=== PATIENT | male | born 1950 | race Caucasian/White ===

== ENCOUNTER 2016-12-17 21:04 | Emergency (ER) | payer MEDICARE ==
[2016-12-17 21:15] VITALS: RESP 18
[2016-12-17] MEDS ORDERED: RX INFO: IV CONTRAST WAS GIVEN 1 EACH MISC MISCELLANE PRN (21:33)
[2016-12-17] MEDS ORDERED: ACETAMINOPHEN IV (For NPO) 1,000 MG in SALINE 100 100ML.BAG IVPB STA (21:36)
[2016-12-17 21:48] LABS: Basophils % (A) 0 %; CH 31.9; CHCM 34.2; Eosinophils # (A) 0.2 k/uL (0-0.7); Eosinophils % (A) 3 %; HCT 45.9 % (39.0-53.0); HDW 2.85; HGB 15.1 gm/dL (13.0-17.5); Luc % (Auto) 3; Lymphocytes # (A) 1.9 k/uL (1.0-4.8); Lymphocytes % (A) 25 %; MCH 30.9 pg (25.0-35.0); MCV 93.8 fL (80.0-100.0); Mean Platelet Volume 6.6; Monocytes # (A) 0.5 k/uL (0-1.0); Monocytes % (A) 6 %; Neutrophils # (A) 4.6 k/uL (1.3-7.7); Neutrophils % (A) 62 %; RDW 12.5 % (11.5-15.5); WBC 7.4 k/uL (3.8-10.6); WBC (Perox) 7.41
--- NOTE | 2016-12-17 21:55 | ED ---
General Adult HPI - General Chief complaint: Fall Stated complaint: Fall/Ribs hurting Time Seen by Provider: 12/17/16 21:05 Source: patient, RN notes reviewed Mode of arrival: ambulatory Limitations: no limitations - History of Present Illness Initial comments: This is a 66-year-old male who presents to the emergency department stating he fell 4 days ago up against a dresser. Patient states he has Parkinson disease and these often off balance occasionally will fall. Patient states he struck the left lateral aspect of his ribs and his tenderness in that area as well as just under the ribs. Patient denies any nausea or vomiting. Patient denies any difficulty breathing shortness of breath. Patient states the pain seemed of gotten worse today and that is the reason he came to the emergency department. Patient denies any head injury or neck injury. Patient denies any numbness weakness. - Related Data Previous Rx's Medication Instructions Recorded Hydrocodone/Acetaminophen [[place] 1 each PO Q4HR PRN #20 tab 12/17/16 5-325] Ibuprofen [Motrin] 600 mg PO Q6HR PRN #20 tab 12/17/16 Allergies Allergy/AdvReac Type Severity Reaction Status Date / Time Penicillins AdvReac Diarrhea Verified 12/17/16 22:22 (C-Diff) Review of Systems ROS Statement: Those systems with pertinent positive or pertinent negative responses have been documented in the HPI. ROS Other: All systems not noted in ROS Statement are negative. Past Medical History Additional Past Medical History / Comment(s): parkinson's History of Any Multi-Drug Resistant Organisms: C-DIFF Date of last positivie culture/infection: 12/10/2016 MDRO Source:: "marginal" c-diff, pt states this is "all gone" Past Surgical History: Orthopedic Surgery Additional Past Surgical History / Comment(s): right knee sx, back sx Past Psychological History: No Psychological Hx Reported Smoking Status: Former smoker Past Alcohol Use History: Occasional Past Drug Use History: None Reported General Exam - General Exam Comments Initial Comments: GENERAL: Patient is well-developed and well-nourished. Patient is nontoxic and well- hydrated and is in mild distress. ENT: Neck is soft and supple. No significant lymphadenopathy is noted. Oropharynx is clear. Moist mucous membranes. Neck has full range of motion without eliciting any pain. EYES: The sclera were anicteric and conjunctiva were pink and moist. Extraocular movements were intact and pupils were equal round and reactive to light. Eyelids were unremarkable. PULMONARY: Unlabored respirations. Good breath sounds bilaterally. No audible rales rhonchi or wheezing was noted. CARDIOVASCULAR: There is a regular rate and rhythm without any murmurs gallops or rubs. There is ecchymosis just below the left lateral ribs the area above that on the 12th 11th and 10th rib are is tender there is also tenderness in the left upper quadrant. ABDOMEN: There is tenderness in the left upper quadrant No palpable organomegaly was noted. There is no palpable pulsatile mass. SKIN: Skin is clear with no lesions or rashes and otherwise unremarkable. NEUROLOGIC: Patient is alert and oriented x3. Cranial nerves II through XII are grossly intact. Motor and sensory are also intact. Normal speech, volume and content. Symmetrical smile. . MUSCULOSKELETAL: Normal extremities with adequate strength and full range of motion. No lower extremity swelling or edema. No calf tenderness. LYMPHATICS: No significant lymphadenopathy is noted PSYCHIATRIC: Normal psychiatric evaluation. Limitations: no limitations Course Vital Signs 12/17/16 21:08 Temperature 97.0 F L Pulse Rate 74 Respiratory 18 Rate Blood Pressure 160/81 O2 Sat by Pulse 98 Oximetry Medical Decision Making - Medical Decision Making CT of the chest abdomen pelvis showed a 12th rib fracture on the left. - Lab Data Result diagrams: 12/17/16 21:39 12/17/16 21:39 Lab Results 12/17/16 12/17/16 Range/Units 21:39 21:39 WBC 7.4 (3.8-10.6) k/uL RBC 4.90 (4.30-5.90) m/uL Hgb 15.1 (13.0-17.5) gm/dL Hct 45.9 (39.0-53.0) % MCV 93.8 (80.0-100.0) fL MCH 30.9 (25.0-35.0) pg MCHC 33.0 (31.0-37.0) g/dL RDW 12.5 (11.5-15.5) % Plt Count 296 (150-450) k/uL Neutrophils % 62 % Lymphocytes % 25 % Monocytes % 6 % Eosinophils % 3 % Basophils % 0 % Neutrophils # 4.6 (1.3-7.7) k/uL Lymphocytes # 1.9 (1.0-4.8) k/uL Monocytes # 0.5 (0-1.0) k/uL Eosinophils # 0.2 (0-0.7) k/uL Basophils # 0.0 (0-0.2) k/uL Sodium 143 (137-145) mmol/L Potassium 4.8 (3.5-5.1) mmol/L Chloride 104 (98-107) mmol/L Carbon Dioxide 29 (22-30) mmol/L Anion Gap 10 mmol/L BUN 18 (9-20) mg/dL Creatinine 1.10 (0.66-1.25) mg/dL Est GFR (MDRD) Af Amer >60 (>60 ml/min/1.73 sqM) Est GFR (MDRD) Non-Af >60 (>60 ml/min/1.73 sqM) Glucose 93 (74-99) mg/dL Calcium 9.0 (8.4-10.2) mg/dL Total Bilirubin 0.8 (0.2-1.3) mg/dL AST 21 (17-59) U/L ALT 23 (21-72) U/L Alkaline Phosphatase 81 (38-126) U/L Total Protein 6.9 (6.3-8.2) g/dL Albumin 4.0 (3.5-5.0) g/dL Disposition Clinical Impression: Rib fracture Disposition: HOME SELF-CARE Condition: Good Instructions: Rib Fracture (ED) Prescriptions: Hydrocodone/Acetaminophen [[place] 5-325] 1 each PO Q4HR PRN #20 tab PRN Reason: Pain Ibuprofen [Motrin] 600 mg PO Q6HR PRN #20 tab PRN Reason: For pain Referrals: Dandy Manley MD [Primary Care Provider] - 1-2 days Time of Disposition: 23:34
[2016-12-17 21:56] LABS: ALT 23 U/L (21-72); AST 21 U/L (17-59); Alkaline Phosphatase 81 U/L (38-126); Anion Gap 10 mmol/L; Blood Urea Nitrogen 18 mg/dL (9-20); Carbon Dioxide 29 mmol/L (22-30); Chloride 104 mmol/L (98-107); Glucose 93 mg/dL (74-99); Non-African American GFR(MDRD) >60 (>60 ml/min/1.73 sqM); Potassium 4.8 mmol/L (3.5-5.1); Sodium 143 mmol/L (137-145); Total Bilirubin 0.8 mg/dL (0.2-1.3); Total Protein 6.9 g/dL (6.3-8.2)
--- NOTE | 2016-12-17 23:29 | CT ---
EXAMINATION TYPE: CT ChestAbdPelvis w con DATE OF EXAM: 12/17/2016 10:46 PM COMPARISON: NONE HISTORY: Pt states of left side rib and abdominal pain after fall injury x3 days ago. CT DLP: 1067.3 mGycm Automated exposure control for dose reduction was used. CONTRAST: CT scan of the chest, abdomen and pelvis is performed without Oral Contrast and with IV Contrast, pat ient injected with 100 mL of Omnipaque 300. FINDINGS: LUNGS: Mild atelectasis and scarring is suggested in both lung bases posteriorly. Mild emphysematous changes are suggested bilaterally. Faint interstitial opacities are noted in the right midlung field and are probably related to chronic changes. No significant lung nodules are noted. There is evidence of acute left 12th rib fracture in the posterior lateral aspect. No pneumothorax or pleural effusion is noted. MEDIASTINUM: There are no greater than 1 cm hilar or mediastinal lymph nodes. No pericardial effusi on is seen. OTHER: No additional significant abnormality is seen. LIVER/GB: No significant abnormality is appreciated. PANCREAS: No significant abnormality is seen. SPLEEN: Spleen appears intact at present with adjacent left 12th rib fracture. ADRENALS: No significant abnormality is seen. KIDNEYS: There is 3.2 x 4.5 cm benign-appearing cyst in the upper pole area of right kidney. No signi ficant hydronephrosis or obstructing stones are noted in both kidneys. BOWEL: Moderate to large amount of fecal material is noted in the colon and patient is constipated. There is mild colonic diverticulosis. Appendix is gas-filled and appears grossly unremarkable in the axial image 91. REPRODUCTIVE ORGANS: No gross abnormality seen. LYMPH NODES: No greater than 1 cm abdominal or pelvic lymph nodes are appreciated. OSSEOUS STRUCTURES: Multilevel degenerative changes are present in the thoracolumbar spine with mild old wedge compression deformities of mid and lower thoracic vertebrae. Multilevel degenerative disc d isease changes and vacuum disc phenomenon are noted in the lower thoracic and lumbar spine. There is evidence of acute slightly displaced left 12th rib fracture in the posterolateral aspect in the axial image 70 and coronal image 71. Possibility of nondisplaced left 11th rib fracture cannot be excluded. Surrounding mild soft tissue swelling is suggested at the fracture site of the left 12th r ib. There is slight irregularity in the anterior portions of acetabulum in the axial image 114 bilaterall y and is probably related to old fracture changes. Somewhat sclerotic foci are noted in the right lex ac bone and are most likely benign bone islands. OTHER: Mild atherosclerotic calcification is noted in the abdominal aorta and iliac arteries. IMPRESSION: 1. Left 12th rib acute slightly displaced fracture in the posterior lateral aspect with surrounding s oft tissue swelling. 2. No pneumothorax or pleural effusion. Mild atelectasis is noted in both lung bases. 3. Right renal cyst. 4. Patient is constipated. Mild colonic diverticulosis. 5. No definite solid organ injury is noted. Spleen appears intact. A phone report is given to Dr. Wright at the time of the dictation.
[2016-12-17] MEDS ORDERED: ACET/COD 300 MG/30 MG STARTER PACK 6 TAB BTL PO STA (23:35)
[2016-12-17] MEDS ORDERED: KETOROLAC 60 MG/2 ML VIAL IVP STA (23:36)
[2016-12-17] MEDS ORDERED: IBUPROFEN 600 MG STARTER PACK 4 TAB BTL PO STA (23:36)
[2016-12-17 23:43] VITALS: BP 133/73; PULSE 67; TEMP 97.9
== END 2016-12-17 23:52 | disposition home or self-care (01) ==
LOC: EC 21:04
DX: S22.32XA Fracture of one rib, left side, initial encounter for closed fracture (principal); G20 Parkinson's disease; Z88.0 Allergy status to penicillin; Z87.891 Personal history of nicotine dependence; Z91.81 History of falling; W18.09XA Striking against other object with subsequent fall, initial encounter; Y92.009 Unspecified place in unspecified non-institutional (private) residence as the place of occurrence of the external cause
CPT/HCPCS: 36415; 80053; 85025; 71260; 74177; 96365; 96366; 96375; 99283; J1885; Q9967; J0131

== ENCOUNTER 2016-12-31 18:29 | Emergency (ER) | payer MEDICARE ==
[2016-12-31 18:38] VITALS: TEMP 97.1
[2016-12-31 18:51] LABS: Glucose,Whole Blood 90 mg/dL (75-99)
[2016-12-31 19:13] LABS: Partial Thromboplastin Time 23.2 sec (22.0-30.0); Prothrombin Time 10.4 sec (9.0-12.0)
--- NOTE | 2016-12-31 19:14 | CT ---
EXAMINATION TYPE: CT brain wo con DATE OF EXAM: 12/31/2016 7:03 PM COMPARISON: NONE HISTORY: Possible cva. Headache and memory changes. Altered mental status History of Parkinson's CT DLP: 1116.10 mGycm Automated exposure control for dose reduction was used. FINDINGS: There is no acute intracranial hemorrhage, mass effect, or midline shift identified. The ventricles and sulci are within normal limits in size. There is mild cortical atrophy. Periventricular white mat ter demyelination is suspected. The globes are intact and the visualized sinuses are clear. IMPRESSION: No acute intracranial hemorrhage, mass effect, or midline shift is seen.
[2016-12-31 19:16] LABS: ALT 19 U/L (21-72); AST 24 U/L (17-59); Alkaline Phosphatase 82 U/L (38-126); Anion Gap 7 mmol/L; Blood Urea Nitrogen 16 mg/dL (9-20); Calcium 8.8 mg/dL (8.4-10.2); Carbon Dioxide 29 mmol/L (22-30); Chloride 105 mmol/L (98-107); Glucose 87 mg/dL (74-99); Non-African American GFR(MDRD) >60 (>60 ml/min/1.73 sqM); Potassium 4.2 mmol/L (3.5-5.1); Sodium 141 mmol/L (137-145); Total Bilirubin 0.9 mg/dL (0.2-1.3); Total Protein 6.6 g/dL (6.3-8.2)
[2016-12-31 19:20] LABS: Basophils % (A) 1 %; CH 31.8; CHCM 33.9; Eosinophils # (A) 0.3 k/uL (0-0.7); Eosinophils % (A) 5 %; HDW 2.81; HGB 14.1 gm/dL (13.0-17.5); Luc % (Auto) 3; Lymphocytes % (A) 32 %; MCH 30.8 pg (25.0-35.0); MCHC 32.7 g/dL (31.0-37.0); MCV 94.1 fL (80.0-100.0); Mean Platelet Volume 7.7; Monocytes # (A) 0.4 k/uL (0-1.0); Monocytes % (A) 6 %; Neutrophils # (A) 3.3 k/uL (1.3-7.7); Neutrophils % (A) 53 %; RBC 4.57 m/uL (4.30-5.90); RDW 12.8 % (11.5-15.5); WBC 6.2 k/uL (3.8-10.6); WBC (Perox) 6.17
--- NOTE | 2016-12-31 19:24 | XR ---
EXAMINATION TYPE: XR chest 1V portable DATE OF EXAM: 12/31/2016 7:05 PM COMPARISON: NONE HISTORY: Altered mental status TECHNIQUE: Single frontal view of the chest is obtained. FINDINGS: There is no focal air space opacity, pleural effusion, or pneumothorax seen. The cardiac silhouette size is within normal limits. There are overlying cardiac leads. The osseous structures are intact. IMPRESSION: No acute process.
[2016-12-31 19:37] VITALS: RESP 18
[2016-12-31 19:55] LABS: Appearance,Urine Clear (Clear); Bilirubin,Urine Negative (Negative); Glucose,Urine (UA) Negative (Negative); Ketones,Urine Negative (Negative); Leukocyte Esterase,Urine Negative (Negative); Nitrite,Urine Negative (Negative); PH, Urine 6.5 (5.0-8.0); Protein,Urine Negative (Negative); Specific Gravity,Urine 1.013 (1.001-1.035); UA Billing (MACRO vs. MICRO) CHEM; Urobilinogen,Urine <2.0 mg/dL (<2.0)
--- NOTE | 2016-12-31 20:06 | ED ---
Neuro HPI - General Chief Complaint: Neuro Symptoms/Deficit Stated Complaint: CVA Time Seen by Provider: 12/31/16 18:42 Source: patient Mode of arrival: EMS Limitations: no limitations - History of Present Illness Is the patient presenting with stroke symptoms?: Yes Last Known Well Date: 12/31/16 -: hour(s) Initial Comments: 's patient is a 66-year-old man brought to be evaluated for altered mental status. The patient had been at home tonight, and his called to ask him to give her phone number. He seemed to not be responding correctly and was unable to locate a number and give it to her which he otherwise would've been able to do. He was subsequently brought here concern of possible stroke. The exact onset time is not able to be established. Location: speech, altered History of same: Yes Place: home Improves With: none Worsens With: none Context: sudden onset Associated Symptoms: confusion Treatments Prior to Arrival: none - Related Data Home Medications: Home Medications Medication Instructions Recorded Confirmed Amantadine HCl [Symmetrel] 100 mg PO TID 12/31/16 12/31/16 Carbidopa/Levodopa/Entacapone 1 tab PO 5XD 12/31/16 12/31/16 [Stalevo 200] Allergies/Adverse Reactions: Allergies Allergy/AdvReac Type Severity Reaction Status Date / Time Penicillins AdvReac Diarrhea Verified 12/31/16 20:04 (C-Diff) Review of Systems ROS Statement: Those systems with pertinent positive or pertinent negative responses have been documented in the HPI. ROS Other: All systems not noted in ROS Statement are negative. Constitutional: Denies: fever, chills Eyes: Denies: vision change ENT: Denies: hearing loss Respiratory: Denies: cough, dyspnea Cardiovascular: Denies: chest pain, palpitations, edema, syncope Gastrointestinal: Denies: abdominal pain, vomiting, diarrhea Genitourinary: Denies: dysuria, hematuria Musculoskeletal: Denies: back pain Skin: Denies: rash Neurological: Reports: as per HPI, confusion. Denies: headache, weakness, numbness, paresthesias General Exam Limitations: no limitations General appearance: alert, in no apparent distress Head exam: Present: atraumatic, normocephalic, normal inspection Eye exam: Present: normal appearance, PERRL, EOMI. Absent: scleral icterus, conjunctival injection ENT exam: Present: normal oropharynx Neck exam: Present: normal inspection, full ROM Respiratory exam: Present: normal lung sounds bilaterally. Absent: respiratory distress, wheezes, rales, rhonchi, stridor Cardiovascular Exam: Present: regular rate, normal heart sounds. Absent: systolic murmur, diastolic murmur GI/Abdominal exam: Present: soft. Absent: distended, tenderness, guarding, rebound, rigid Extremities exam: Present: normal inspection, normal capillary refill. Absent: pedal edema, calf tenderness Back exam: Present: normal inspection. Absent: CVA tenderness (R), CVA tenderness (L) Neurological exam: Present: alert, oriented X3. Absent: CN II-XII intact, motor sensory deficit Skin exam: Present: warm, dry, intact, normal color. Absent: rash Stroke MDM - Lab Data Result diagrams: 12/31/16 18:44 12/31/16 18:44 Lab Results 12/31/16 12/31/16 12/31/16 Range/Units 18:36 18:44 18:44 WBC 6.2 (3.8-10.6) k/uL RBC 4.57 (4.30-5.90) m/uL Hgb 14.1 (13.0-17.5) gm/dL Hct 43.0 (39.0-53.0) % MCV 94.1 (80.0-100.0) fL MCH 30.8 (25.0-35.0) pg MCHC 32.7 (31.0-37.0) g/dL RDW 12.8 (11.5-15.5) % Plt Count 182 (150-450) k/uL Neutrophils % 53 % Lymphocytes % 32 % Monocytes % 6 % Eosinophils % 5 % Basophils % 1 % Neutrophils # 3.3 (1.3-7.7) k/uL Lymphocytes # 2.0 (1.0-4.8) k/uL Monocytes # 0.4 (0-1.0) k/uL Eosinophils # 0.3 (0-0.7) k/uL Basophils # 0.0 (0-0.2) k/uL PT (9.0-12.0) sec INR (<1.1) APTT (22.0-30.0) sec Sodium 141 (137-145) mmol/L Potassium 4.2 (3.5-5.1) mmol/L Chloride 105 (98-107) mmol/L Carbon Dioxide 29 (22-30) mmol/L Anion Gap 7 mmol/L BUN 16 (9-20) mg/dL Creatinine 0.80 (0.66-1.25) mg/dL Est GFR (MDRD) Af Amer >60 (>60 ml/min/1.73 sqM) Est GFR (MDRD) Non-Af >60 (>60 ml/min/1.73 sqM) Glucose 87 (74-99) mg/dL POC Glucose (mg/dL) 90 (75-99) mg/dL POC Glu Cloth Doffer ID Aura Grace Calcium 8.8 (8.4-10.2) mg/dL Total Bilirubin 0.9 (0.2-1.3) mg/dL AST 24 (17-59) U/L ALT 19 L (21-72) U/L Alkaline Phosphatase 82 (38-126) U/L Troponin I (0.000-0.034) ng/mL Total Protein 6.6 (6.3-8.2) g/dL Albumin 3.8 (3.5-5.0) g/dL Urine Color Urine Appearance (Clear) Urine pH (5.0-8.0) Ur Specific [place] (1.001-1.035) Urine Protein (Negative) Urine Glucose (UA) (Negative) Urine Ketones (Negative) Urine Blood (Negative) Urine Nitrate (Negative) Urine Bilirubin (Negative) Urine Urobilinogen (<2.0) mg/dL Ur Leukocyte Esterase (Negative) 12/31/16 12/31/16 12/31/16 Range/Units 18:44 18:44 19:44 WBC (3.8-10.6) k/uL RBC (4.30-5.90) m/uL Hgb (13.0-17.5) gm/dL Hct (39.0-53.0) % MCV (80.0-100.0) fL MCH (25.0-35.0) pg MCHC (31.0-37.0) g/dL RDW (11.5-15.5) % Plt Count (150-450) k/uL Neutrophils % % Lymphocytes % % Monocytes % % Eosinophils % % Basophils % % Neutrophils # (1.3-7.7) k/uL Lymphocytes # (1.0-4.8) k/uL Monocytes # (0-1.0) k/uL Eosinophils # (0-0.7) k/uL Basophils # (0-0.2) k/uL PT 10.4 (9.0-12.0) sec INR 1.0 (<1.1) APTT 23.2 (22.0-30.0) sec Sodium (137-145) mmol/L Potassium (3.5-5.1) mmol/L Chloride (98-107) mmol/L Carbon Dioxide (22-30) mmol/L Anion Gap mmol/L BUN (9-20) mg/dL Creatinine (0.66-1.25) mg/dL Est GFR (MDRD) Af Amer (>60 ml/min/1.73 sqM) Est GFR (MDRD) Non-Af (>60 ml/min/1.73 sqM) Glucose (74-99) mg/dL POC Glucose (mg/dL) (75-99) mg/dL POC Glu Cloth Doffer ID Calcium (8.4-10.2) mg/dL Total Bilirubin (0.2-1.3) mg/dL AST (17-59) U/L ALT (21-72) U/L Alkaline Phosphatase (38-126) U/L Troponin I <0.012 (0.000-0.034) ng/mL Total Protein (6.3-8.2) g/dL Albumin (3.5-5.0) g/dL Urine Color Dark Yellow Urine Appearance Clear (Clear) Urine pH 6.5 (5.0-8.0) Ur Specific [place] 1.013 (1.001-1.035) Urine Protein Negative (Negative) Urine Glucose (UA) Negative (Negative) Urine Ketones Negative (Negative) Urine Blood Negative (Negative) Urine Nitrate Negative (Negative) Urine Bilirubin Negative (Negative) Urine Urobilinogen <2.0 (<2.0) mg/dL Ur Leukocyte Esterase Negative (Negative) - Medical Decision Making Patient is 66-year-old man presenting with change in mental status, mainly expressive aphasia, which has resolved. Per the patient's family he does seem back to his usual self. The ABCD 2 score indicates that the patient may be suitable for outpatient workup and that is his expressed desire. I did offer admission with neurology consultation, but at this point he is declining. They will return should there be any recurrence of symptoms or any new symptoms. He is otherwise going to follow up to have further workup within the coming few days. Past Medical History Additional Past Medical History / Comment(s): parkinson's History of Any Multi-Drug Resistant Organisms: C-DIFF Date of last positivie culture/infection: 12/10/2016 MDRO Source:: "marginal" c-diff, pt states this is "all gone" Past Surgical History: Orthopedic Surgery Additional Past Surgical History / Comment(s): right knee sx, back sx Past Psychological History: No Psychological Hx Reported Smoking Status: Former smoker Past Alcohol Use History: Occasional Past Drug Use History: None Reported Course Vital Signs 12/31/16 12/31/16 12/31/16 18:32 19:05 19:15 Temperature 97.1 F L Pulse Rate 62 58 L 61 Respiratory 16 16 18 Rate Blood Pressure 148/96 133/74 131/72 O2 Sat by Pulse 97 98 98 Oximetry 12/31/16 12/31/16 19:30 20:00 Temperature Pulse Rate 58 L 70 Respiratory 18 18 Rate Blood Pressure 131/77 145/82 O2 Sat by Pulse 99 97 Oximetry Disposition Clinical Impression: Transient cerebral ischemia, Mental status change, Cerebrovascular accident Disposition: HOME SELF-CARE Condition: Good Instructions: Transient Ischemic Attack (ED) Referrals: Dandy Manley MD [Primary Care Provider] - 1-2 days Juan Webster MD [STAFF PHYSICIAN] - 1-2 days
[2016-12-31 20:34] VITALS: BP 145/82; PULSE 70
== END 2016-12-31 20:25 | disposition home or self-care (01) ==
LOC: EC 18:29
DX: I63.9 Cerebral infarction, unspecified (principal); R41.82 Altered mental status, unspecified; Z87.891 Personal history of nicotine dependence; Z88.0 Allergy status to penicillin
CPT/HCPCS: 36415; 70450; 71010; 80053; 81003; 84484; 85025; 85610; 85730; 93005; 99285

== ENCOUNTER 2018-04-30 11:23 | Emergency (ER) | payer MEDICARE ==
--- NOTE | 2018-04-30 12:09 | ED ---
General Adult HPI - General Chief complaint: Back Pain/Injury Stated complaint: back pain Time Seen by Provider: 04/30/18 11:50 Source: patient, RN notes reviewed Mode of arrival: ambulatory Limitations: no limitations - History of Present Illness Initial comments: Chief complaint and history of present illness this is a 67-year-old male who reports that approximately 2:58 AM this morning he rolled over in bed and developed acute severe discomfort to his right paralumbar region and radiates to the right upper buttock. The patient does have Parkinson's. He denies having any difficulty urinating or bowel movements since then. His gave him a pain pill source helped relieve some of the pain. - Related Data Home Medications Medication Instructions Recorded Confirmed Amantadine HCl [Symmetrel] 100 mg PO TID 12/31/16 04/30/18 Carbidopa/Levodopa/Entacapone 1 tab PO 5XD 12/31/16 04/30/18 [Stalevo 200] Meloxicam [Mobic] 15 mg PO DAILY PRN 04/30/18 04/30/18 Previous Rx's Medication Instructions Recorded Acetaminophen with Codeine 1 tab PO Q4H PRN 3 Days #18 tab 04/30/18 [Tylenol w/codeine #3] methylPREDNISolone Dose Pack 4 mg PO DIRECTED #21 package 04/30/18 [Medrol Dose Pack] Allergies Allergy/AdvReac Type Severity Reaction Status Date / Time Penicillins AdvReac Diarrhea Verified 04/30/18 11:42 (C-Diff) Review of Systems ROS Statement: Those systems with pertinent positive or pertinent negative responses have been documented in the HPI. Review of systems. Patient denies any headache no visual acuity changes no cervical or thoracic pain. Has discomfort to the lumbar region as noted above. No numbness no tingling distally. No difficulty urinating or bowel movements. No complaints of any nausea vomiting or diarrhea. No new deficits. Patient has Parkinson's for the past 15 years. All systems are reviewed. Past medical problem Parkinson's 15 years. Denies any other medical problems. Surgeries include right knee surgery many years ago as well as back surgery probably laminectomy and no problems since this morning at 2 AM. Family history no cancers. Patient denies any ALLERGIES. He quit smoking over 30 years ago drinks alcohol occasionally socially. ROS Other: All systems not noted in ROS Statement are negative. Past Medical History Additional Past Medical History / Comment(s): parkinson's History of Any Multi-Drug Resistant Organisms: C-DIFF Date of last positivie culture/infection: 12/10/2016 MDRO Source:: "marginal" c-diff, pt states this is "all gone" Past Surgical History: Orthopedic Surgery Additional Past Surgical History / Comment(s): right knee sx, back sx Past Psychological History: No Psychological Hx Reported Smoking Status: Former smoker Past Alcohol Use History: Occasional Past Drug Use History: None Reported General Exam - General Exam Comments Initial Comments: General: The patient is awake and alert, here because of pain to the right paralumbar region after rolling over at 2 AM. Pain persists. Vital signs temperature 97.5 pulse 87 respiratory rate 20 pulse ox 99% room air blood pressure 126/67 Eye: Pupils are equal, round and reactive to light, extra-ocular movements are intact ; there is normal conjunctiva bilaterally. No signs of icterus. Ears, nose, mouth and throat: There are moist mucous membranes and no oral lesions. Neck: The neck is supple, Cardiovascular: There is a regular rate and rhythm. No murmur, rub or gallop is appreciated. Respiratory: Lungs are clear to auscultation, respirations are non-labored, breath sounds are equal. No wheezes, stridor, rales, or rhonchi. Gastrointestinal: Soft, non-distended, non-tender abdomen without masses or organomegaly noted. There is no rebound or guarding present. No CVA tenderness. Bowel sounds are unremarkable. Back: Evidence of previous surgery in the lumbar region. Probably laminectomy from his description of the procedure. Also pain in the right paralumbar region radiating to the upper right buttock area. No rash noted. Early shingles discussed. No pain to palpation over the area. Pain does increase with a twisting or turning or bending forward. Denies any difficulty urinating or bowel movements. Musculoskeletal: Upper or lower extremities otherwise normal. Neurological: The patient has Parkinson's, with tremor. For over 15 years. He states no new deficits other than the acute pain suffered while rolling over in bed's morning at 2 AM. No foot drop. Skin: No rashes Psychiatric: Cooperative, Limitations: no limitations Course Vital Signs 04/30/18 04/30/18 11:30 12:16 Temperature 97.5 F L Pulse Rate 87 62 Respiratory 20 17 Rate Blood Pressure 126/67 136/70 O2 Sat by Pulse 99 100 Oximetry Medical Decision Making - Medical Decision Making Medical decision making; this is a 67-year-old male with Parkinson's. He reports that around 2 AM this morning while rolling over in bed he did develop an acute discomfort which is persisted until he received a pain pill from his . Still uncomfortable in the lumbar spine right sided which radiates to the right buttock area. The radiologist reviewed the CAT scan the lumbar spine and her impression is extensive multilevel lumbar degenerative disc disease and S-shaped scoliosis of the lumbar spine that contribute 2 multilevel spinal canal stenosis and variable degree neural foraminal narrowing as described in the body of the report. No evidence of vertebral body height loss. Grade 1 anterolisthesis of L5 on S1 is likely degenerative in nature. I discussed with the patient the findings per CAT scan. The plan the patient be placed on Medrol Dosepak advised to take Tylenol 3 which worked at home for pain also advised follow-up with family physician. He'll be given the name of the on-call back surgeon, Dr. Andrews. Disposition Clinical Impression: Degenerative disc disease, lumbar Disposition: HOME SELF-CARE Condition: Fair Instructions: Acute Low Back Pain (ED), Degenerative Disc Disease (ED), Lumbar Spinal Stenosis (ED) Additional Instructions: Take medications as directed, follow-up with family physician. Also follow-up with on-call back surgeon Dr. Andrews Prescriptions: Acetaminophen with Codeine [Tylenol w/codeine #3] 1 tab PO Q4H PRN 3 Days #18 tab PRN Reason: Pain methylPREDNISolone Dose Pack [Medrol Dose Pack] 4 mg PO DIRECTED #21 package Is patient prescribed a controlled substance at d/c from ED?: Yes When asked, does pt state using other controlled substances?: No If prescribed controlled substance>3 days was MAPS reviewed?: No If opioid is for acute pain is fill amount 7 days or less?: Yes If Rx opioid, was Start Talking consent form obtained?: Yes Referrals: None,Stated [Primary Care Provider] - 1-2 days Therese Andrews DO [Doctor of Osteopathic Medicine] - 1-2 days Time of Disposition: 13:27
--- NOTE | 2018-04-30 13:08 | CT ---
EXAMINATION TYPE: CT lumbar spine wo con DATE OF EXAM: 04/30/2018 12:57 PM COMPARISON: NONE HISTORY: Low back pain CT DLP: 440 mGycm Automated exposure control for dose reduction was used. TECHNIQUE: Unenhanced CT of the lumbar spine was performed. Bone and soft tissue window settings are submitted as well as coronal and sagittal reconstructions. Osseous findings: There is severe degenerative changes of the lumbar spine. No evidence of vertebral body height loss. There is very mild grade 1 anterolisthesis of L5 on S1, likely on a degenerative ba sis intervertebral disc desiccation, multilevel vacuum disc disease, anterior osteophytes, facet arth ropathy, endplate sclerosis and intervertebral disc space narrowing are noted. Minimal bibasilar subs egmental atelectasis is seen at the lung bases. Exophytic right upper pole renal cyst is seen measuri ng 4.6 cm. Vqhi-ij-buzpiacm atherosclerosis of the abdominal aorta and its branches are incidentally seen. There is a S-shaped scoliotic curvature of the lumbar spine. L1-L2: There is disc desiccation and a broad-based disc bulge with mild bilateral neural foraminal na rrowing. No significant spinal canal stenosis. L2-L3: There is facet arthropathy and disc desiccation with a broad-based disc bulge and osteophytes creating moderate left and mild right neural foraminal narrowing. No spinal canal stenosis. L3-L4: Extensive facet arthropathy, curvature from the scoliosis, and degenerative disc disease creat e moderate to severe left and mild right neural foraminal narrowing in addition to moderate spinal ca nal stenosis. L4-L5: Extensive facet arthropathy and degenerative disc disease create severe right and mild left ne ural foraminal narrowing. L5-S1: There is disc uncovering and a broad-based disc bulge resulting in mild left and xuco-ia-uqjon ate right neural foraminal narrowing. No spinal canal stenosis. IMPRESSION: 1. Extensive multilevel lumbar degenerative disc disease and S-shaped scoliosis of the lumbar spine t hat contribute to multilevel spinal canal stenosis and variable degree neural foraminal narrowing as described above. 2. No evidence of vertebral body height loss. Grade 1 anterolisthesis of L5 on S1 is likely degenerat shweta in nature.
[2018-04-30 13:31] VITALS: RESP 18; TEMP 98.4
[2018-04-30 13:38] VITALS: BP 130/62; PULSE 57
== END 2018-04-30 13:38 | disposition home or self-care (01) ==
LOC: EC 11:23
DX: M51.36 Other intervertebral disc degeneration, lumbar region (principal); M48.061 Spinal stenosis, lumbar region without neurogenic claudication; M43.17 Spondylolisthesis, lumbosacral region; M99.73 Connective tissue and disc stenosis of intervertebral foramina of lumbar region; M41.86 Other forms of scoliosis, lumbar region; G20 Parkinson's disease; Z87.891 Personal history of nicotine dependence; Z79.899 Other long term (current) drug therapy; Z88.0 Allergy status to penicillin; Z98.890 Other specified postprocedural states; X50.1XXA Overexertion from prolonged static or awkward postures, initial encounter
CPT/HCPCS: 72131; 99283

== ENCOUNTER → 2019-01-11 | Outpatient (CLI) | payer MEDICARE ==
--- NOTE | 2019-01-11 15:22 | MR ---
EXAMINATION TYPE: MR brain wo/w con DATE OF EXAM: 01/11/2019 COMPARISON: CT 12/31/2016 HISTORY: 68-year-old male Visual disturbances TECHNIQUE: Multiplanar, multisequence images of the brain and brainstem were acquired before and aft er administration of 11 mL IV Gadavist. Diffusion weighted imaging is performed. Fast brain protoco l was utilized. FINDINGS: No evidence for acute infarction, hemorrhage, mass, mass effect, midline shift, herniation, effacemen t of basal cisterns, or extra-axial fluid collection. The ventricles and sulci are age-appropriate. Major intracranial flow voids are intact. The left vertebral artery is dominant. T2/FLAIR weighted sequences show mild to moderate scattered burden of bright white matter change in t he subcortical, deep, and periventricular regions of both cerebral hemispheres. Midline structures demonstrate normal morphology. The craniocervical junction is normal. Post contrast images demonstrate no evidence of pathologic enhancement. Dural venous sinuses are pat ent. The visualized sinuses are clear and the globes are intact. Rightward nasal septal deviation. Small a mount of fluid within the inferior right mastoid air cells. IMPRESSION: 1. No acute intracranial abnormality seen. 2. Lgmm-qn-kbdfixum scattered burden of T2 bright white matter change, nonspecific, likely representi ng changes of chronic small vessel ischemic disease. 3. Incidental small amount of trapped fluid in the inferior right mastoid air cells. Correlate for an y mastoid pain to exclude mastoiditis.
== END | disposition home or self-care (01) ==
LOC: RADMRIMAIN 08:13
PROVIDERS: ATTEND Psychiatry & Neurology Neurology
DX: R90.89 Other abnormal findings on diagnostic imaging of central nervous system (principal); H53.2 Diplopia; F82 Specific developmental disorder of motor function
CPT/HCPCS: 82565; 70553; 36415; A9585

== ENCOUNTER 2019-08-05 14:13 | Emergency (ER) | payer MEDICARE ==
[2019-08-05 14:16] VITALS: RESP 18
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
--- NOTE | 2019-08-05 15:59 | XR ---
EXAMINATION TYPE: XR hand complete LT DATE OF EXAM: 08/05/2019 CLINICAL HISTORY: pain TECHNIQUE: Frontal, lateral and oblique images of the left hand are obtained. COMPARISON: None. FINDINGS: There is no acute fracture/dislocation evident. The joint spaces appear within normal limi ts. The overlying soft tissue appears unremarkable. IMPRESSION: There is no acute fracture or dislocation. ICD 10 NO FRACTURE, INITIAL EVALUATION
--- NOTE | 2019-08-05 15:59 | XR ---
EXAMINATION TYPE: XR elbow complete RT DATE OF EXAM: 08/05/2019 CLINICAL HISTORY: pain TECHNIQUE: Frontal, lateral and oblique images of the right elbow are obtained. COMPARISON: None. FINDINGS: There is no acute fracture/dislocation evident of the elbow. No abnormal fat pad signs ar e seen. The overlying soft tissue appears unremarkable. IMPRESSION: There is no acute fracture or dislocation of the elbow. ICD 10 NO FRACTURE, INITIAL EVALUATION
--- NOTE | 2019-08-05 16:00 | XR ---
EXAMINATION TYPE: XR knee complete RT DATE OF EXAM: 08/05/2019 CLINICAL HISTORY: pain TECHNIQUE: Three views of the right knee are obtained. COMPARISON: None. FINDINGS: There is no acute fracture/dislocation. The tri-compartment joint spaces appear severely narrowed. Meniscal chondrocalcinosis identified. The overlying soft tissue appears unremarkable. IMPRESSION: There is no acute fracture or dislocation.ICD 10 NO FRACTURE, INITIAL EVALUATION
[2019-08-05] MEDS ORDERED: LIDOCAINE 1% INJ 10MG/ML (20 ML MDV) SQ ONE (16:08)
[2019-08-05] MEDS ORDERED: TOPICAL SKIN ADHESIVE 1 EACH AMP TOPICAL ONE (16:15)
[2019-08-05] MEDS ORDERED: LIDOCAINE 1%-EPI 1:100,000 20 ML VIAL SQ STA (16:41)
[2019-08-05] MEDS ORDERED: LORazepam 2 MG/ML INJ IV STA (17:35)
[2019-08-05 17:49] VITALS: BP 141/78; PULSE 79; TEMP 98.2
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
== END 2019-08-05 18:04 | disposition short-term general hospital (02) ==
LOC: EC 14:13
DX: S12.400A Unspecified displaced fracture of fifth cervical vertebra, initial encounter for closed fracture (principal); S12.500A Unspecified displaced fracture of sixth cervical vertebra, initial encounter for closed fracture; S01.21XA Laceration without foreign body of nose, initial encounter; S01.511A Laceration without foreign body of lip, initial encounter; S01.81XA Laceration without foreign body of other part of head, initial encounter; S50.311A Abrasion of right elbow, initial encounter; S60.512A Abrasion of left hand, initial encounter; S80.211A Abrasion, right knee, initial encounter; M43.22 Fusion of spine, cervical region; R41.82 Altered mental status, unspecified; G20 Parkinson's disease; Z87.891 Personal history of nicotine dependence; Z88.0 Allergy status to penicillin; Z91.030 Bee allergy status; Z79.82 Long term (current) use of aspirin; Z79.899 Other long term (current) drug therapy; V17.4XXA Pedal cycle driver injured in collision with fixed or stationary object in traffic accident, initial encounter; Y93.55 Activity, bike riding; Y92.410 Unspecified street and highway as the place of occurrence of the external cause
CPT/HCPCS: 99285; 12015; 12002; 96374; 73080; 73130; 73562; 72125; 70486; 70450; J2060; J2001

== ENCOUNTER → 2019-09-17 | Outpatient (CLI) | payer MEDICARE ==
--- NOTE | 2019-09-17 14:45 | XR ---
EXAMINATION TYPE: XR cervical spine w flex/ext DATE OF EXAM: 09/17/2019 TECHNIQUE: Frontal, lateral, oblique, swimmers, and open mouth view of the cervical spine are delfino d. HISTORY: S12.500D closed displaced fx 6th vertebrae cervical COMPARISON: CT of the cervical spine dated 08/05/2019 FINDINGS: There is redemonstration of the previously seen vertebral body fusions, likely degenerative at C3-C4, C5-C6, and C6-C7. There is been placement of pedicular screws and fixation rods traversing the C4-C7 vertebral levels fixating the prior C6 vertebral fracture. Some sclerosis is seen of the v ertebral body of C6 with vertebral body cortical irregularity of the superior endplate and anterior s uperior aspect of the vertebral body. Resection of the posterior elements is seen. The previously see n malalignment with anterolisthesis of C7 on T1 is partially viewed. In flexion there is no new cervical spine malalignment. In extension no new malalignment is seen. Obl ique images demonstrate no significant neural foraminal narrowing. Mild multilevel uncovertebral hype rtrophy on the frontal view. Odontoid appears intact. IMPRESSION: Surgical fixation of the C6 vertebral body fracture with interval development of scleros is through the primary fracture site. Stable grade 1 anterolisthesis of C7 on T1, again appearing deg enerative. No new additional level of malalignment in neutral, flexion nor extension.
== END | disposition home or self-care (01) ==
LOC: RADXRMAIN 13:49
PROVIDERS: ATTEND Neurological Surgery
DX: M43.13 Spondylolisthesis, cervicothoracic region (principal); M50.33 Other cervical disc degeneration, cervicothoracic region; G95.89 Other specified diseases of spinal cord; S12.500D Unspecified displaced fracture of sixth cervical vertebra, subsequent encounter for fracture with routine healing; Z98.1 Arthrodesis status
CPT/HCPCS: 72052

== ENCOUNTER 2020-08-23 16:55 | Emergency (ER) | payer MEDICARE ==
[2020-08-23 17:03] VITALS: BP 124/78; PULSE 71; RESP 18; TEMP 98
[2020-08-23] MEDS ORDERED: SODIUM CHLORIDE 0.9% 500 ML 500 ML IV STA (17:19)
[2020-08-23 17:36] LABS: Basophils % (A) 1 %; Eosinophils # (A) 0.2 k/uL (0-0.7); Eosinophils % (A) 3 %; HCT 46.2 % (39.0-53.0); HGB 15.4 gm/dL (13.0-17.5); Lymphocytes # (A) 1.7 k/uL (1.0-4.8); Lymphocytes % (A) 28 %; MCH 32.7 pg (25.0-35.0); MCHC 33.4 g/dL (31.0-37.0); MCV 97.9 fL (80.0-100.0); Mean Platelet Volume 7.3; Monocytes # (A) 0.3 k/uL (0-1.0); Monocytes % (A) 5 %; Neutrophils # (A) 3.8 k/uL (1.3-7.7); Neutrophils % (A) 61 %; Platelet Count 187 k/uL (150-450); RBC 4.72 m/uL (4.30-5.90); RDW 12.4 % (11.5-15.5); WBC 6.1 k/uL (3.8-10.6)
[2020-08-23 17:37] LABS: Appearance,Urine Clear (Clear); Bilirubin,Urine Negative (Negative); Blood,Urine Negative (Negative); Color,Urine Dark Yellow; Glucose,Urine (UA) Negative (Negative); Ketones,Urine Trace (Negative); Leukocyte Esterase,Urine Negative (Negative); Nitrite,Urine Negative (Negative); Protein,Urine Trace (Negative); Specific Gravity,Urine 1.031 (1.001-1.035)
[2020-08-23 17:46] LABS: Albumin 4.1 g/dL (3.5-5.0); Calcium 9.1 mg/dL (8.4-10.2); Total Bilirubin 1.7 mg/dL (0.2-1.3); Total Protein 6.8 g/dL (6.3-8.2)
[2020-08-23 17:48] LABS: Potassium 4.6 mmol/L (3.5-5.1)
[2020-08-23] MEDS ORDERED: DOCUSATE 283 MG/5 ML ENEMA RECTAL STA (18:46)
--- NOTE | 2020-08-23 18:50 | XR ---
EXAMINATION TYPE: XR KUB DATE OF EXAM: 08/23/2020 6:17 PM CLINICAL HISTORY: Abdominal pain and abnormal stool TECHNIQUE: Upright images of the abdomen and pelvis were obtained COMPARISON: None. FINDINGS: Scattered gas is seen in non-distended small bowel loops. Gas and fecal material is seen in non-distended colon. There is no visceromegaly, pneumoperitoneum, or abnormal calcification apprecia deann. Pelvic phleboliths. The lung bases are clear. Degenerative changes and dextroscoliosis of the katiana mbar spine. Degenerative changes of the hips. IMPRESSION: Nonspecific bowel gas pattern.
--- NOTE | 2020-08-23 20:23 | ED ---
General Adult HPI - General Chief complaint: Recheck/Abnormal Lab/Rx Stated complaint: GI issues Time Seen by Provider: 08/23/20 17:06 Source: patient, RN notes reviewed, old records reviewed Mode of arrival: ambulatory Limitations: no limitations - History of Present Illness Initial comments: 69-year-old male patient presents ED for evaluation of constipation. Patient reports that he has long-term issues with constipation today when he was mowing the lawn he had a little bit of leakage of some greasy stools. He denies any abdominal pain nausea vomiting or diarrhea. Reports he has not had a bowel movement in a couple of days. She reports no history of this morning he felt a little bit dizzy however that has since resolved. Denies any chest pain. Denies any other acute complaints. Systemic: Pt denies fatigue, fever/chills, rash. Pt denies weakness, night sweats, weight loss. Neuro: Pt denies headache, visual disturbances, syncope or pre-syncope. HEENT: Pt denies ocular discharge or irritation, otalgia, rhinorrhea, pharyngitis or notable lymphadenopathy. Cardiopulmonary: Pt denies chest pain, SOB, heart palpitations, dyspnea on exert ion. Abdominal/GI: Pt denies abdominal pain, n/v. : Pt denies dysuria, burning w/ urination, frequency/urgency. Denies new onset urinary or bowel incontinence. MSK: Pt denies myalgia, loss of strength or function in extremities. Neuro: Pt denies new onset weakness, paresthesias. - Related Data Home Medications Medication Instructions Recorded Confirmed amantadine HCL [Symmetrel] 100 mg PO BID 12/31/16 08/23/20 Aspirin 162 mg PO DAILY 08/05/19 08/23/20 Carbidopa-Levodopa 25-100 mg 1 tab PO DAILY PRN 08/23/20 08/23/20 [Sinemet 25-100 mg] Carbidopa/Levodopa/Entacapone 1 tab PO TID 08/23/20 08/23/20 [Ukjsmajyd-Igbynkiv-Qcoq 200 mg] Donepezil HCl [Aricept] 10 mg PO DAILY 08/23/20 08/23/20 Polyethylene Glycol 3350 [Miralax] 17 gm PO DAILY 08/23/20 08/23/20 Tamsulosin HCl [Flomax] 0.4 mg PO W/SUPPER 08/23/20 08/23/20 Allergies Allergy/AdvReac Type Severity Reaction Status Date / Time bee pollen Allergy Unknown Verified 08/23/20 18:56 Penicillins AdvReac Diarrhea Verified 08/23/20 18:56 (C-Diff) Review of Systems ROS Statement: Those systems with pertinent positive or pertinent negative responses have been documented in the HPI. ROS Other: All systems not noted in ROS Statement are negative. Past Medical History Additional Past Medical History / Comment(s): parkinson's History of Any Multi-Drug Resistant Organisms: C-DIFF Date of last positivie culture/infection: 12/10/2016 MDRO Source:: "marginal" c-diff, pt states this is "all gone" Past Surgical History: Orthopedic Surgery Additional Past Surgical History / Comment(s): right knee sx, back sx, neck surgery Past Psychological History: No Psychological Hx Reported Smoking Status: Never smoker Past Alcohol Use History: Occasional Past Drug Use History: None Reported General Exam - General Exam Comments Initial Comments: Constitutional: NAD, AOX3, Pt has pleasant affect. HEENT: NC/AT, trachea midline, neck supple, no lymphadenopathy. Posterior pharynx non erythematous, without exudates. External ears appear normal, without discharge. Mucous membranes moist. Eyes PERRLA, EOM intact. There is no scleral icterus. No pallor noted. Cardiopulmonary: RRR, no murmurs, rubs or gallops, no JVD noted. Lungs CTAB in anterior and posterior bernard. No peripheral edema. Abdominal exam: Abdomen soft and non-distended. Abdomen non-tender to palpation in all 4 quadrants. Bowel sounds active in LLQ. No hepatosplenomegaly. No ecchymosis Neuro: CN II-XII grossly intact. No nuchal rigidity. No raccon eyes, no arcos sign, no hemotympanum. No cervical spinal tenderness. MSK: Full active ROM in upper and lower extremities, 5/5 stregnth. Limitations: no limitations Course Vital Signs 08/23/20 16:58 Temperature 98.0 F Pulse Rate 71 Respiratory 18 Rate Blood Pressure 124/78 O2 Sat by Pulse 97 Oximetry Medical Decision Making - Medical Decision Making 69-year-old male patient presents to ED for evaluation. Patient physical exam displayed nontender abdomen. Laboratory this case. Mild dehydration patient administered fluid bolus. EKG is nonischemic. KUB did display some gas and fecal material seen. Disimpaction was attempted I was unable to disimpact. I Therevac was performed patient had a large bowel movement. We feet digital exam reveals empty rectal vault. I believe that patient's leakage of stool was due to a large fecal ball. Patient discharged to follow-up with his primary care provider and return here if any worsening symptoms. Case discussed with Dr. Felton. - Lab Data Result diagrams: 08/23/20 17:25 08/23/20 17:25 Lab Results 08/23/20 08/23/20 08/23/20 Range/Units 17:25 17:25 17:25 WBC 6.1 (3.8-10.6) k/uL RBC 4.72 (4.30-5.90) m/uL Hgb 15.4 (13.0-17.5) gm/dL Hct 46.2 (39.0-53.0) % MCV 97.9 (80.0-100.0) fL MCH 32.7 (25.0-35.0) pg MCHC 33.4 (31.0-37.0) g/dL RDW 12.4 (11.5-15.5) % Plt Count 187 (150-450) k/uL Neutrophils % 61 % Lymphocytes % 28 % Monocytes % 5 % Eosinophils % 3 % Basophils % 1 % Neutrophils # 3.8 (1.3-7.7) k/uL Lymphocytes # 1.7 (1.0-4.8) k/uL Monocytes # 0.3 (0-1.0) k/uL Eosinophils # 0.2 (0-0.7) k/uL Basophils # 0.0 (0-0.2) k/uL Sodium 138 (137-145) mmol/L Potassium 4.6 (3.5-5.1) mmol/L Chloride 105 (98-107) mmol/L Carbon Dioxide 29 (22-30) mmol/L Anion Gap 4 mmol/L BUN 27 H (9-20) mg/dL Creatinine 1.12 (0.66-1.25) mg/dL Est GFR (CKD-EPI)AfAm 78 (>60 ml/min/1.73 sqM) Est GFR (CKD-EPI)NonAf 67 (>60 ml/min/1.73 sqM) Glucose 105 H (74-99) mg/dL Plasma Lactic Acid Morgan (0.7-2.0) mmol/L Calcium 9.1 (8.4-10.2) mg/dL Total Bilirubin 1.7 H (0.2-1.3) mg/dL AST 28 (17-59) U/L ALT 6 (4-49) U/L Alkaline Phosphatase 77 (38-126) U/L Troponin I (0.000-0.034) ng/mL Total Protein 6.8 (6.3-8.2) g/dL Albumin 4.1 (3.5-5.0) g/dL Lipase 91 (23-300) U/L Urine Color Dark Yellow Urine Appearance Clear (Clear) Urine pH 6.0 (5.0-8.0) Ur Specific [place] 1.031 (1.001-1.035) Urine Protein Trace H (Negative) Urine Glucose (UA) Negative (Negative) Urine Ketones Trace H (Negative) Urine Blood Negative (Negative) Urine Nitrite Negative (Negative) Urine Bilirubin Negative (Negative) Urine Urobilinogen 2.0 (<2.0) mg/dL Ur Leukocyte Esterase Negative (Negative) 08/23/20 08/23/20 Range/Units 17:25 17:25 WBC (3.8-10.6) k/uL RBC (4.30-5.90) m/uL Hgb (13.0-17.5) gm/dL Hct (39.0-53.0) % MCV (80.0-100.0) fL MCH (25.0-35.0) pg MCHC (31.0-37.0) g/dL RDW (11.5-15.5) % Plt Count (150-450) k/uL Neutrophils % % Lymphocytes % % Monocytes % % Eosinophils % % Basophils % % Neutrophils # (1.3-7.7) k/uL Lymphocytes # (1.0-4.8) k/uL Monocytes # (0-1.0) k/uL Eosinophils # (0-0.7) k/uL Basophils # (0-0.2) k/uL Sodium (137-145) mmol/L Potassium (3.5-5.1) mmol/L Chloride (98-107) mmol/L Carbon Dioxide (22-30) mmol/L Anion Gap mmol/L BUN (9-20) mg/dL Creatinine (0.66-1.25) mg/dL Est GFR (CKD-EPI)AfAm (>60 ml/min/1.73 sqM) Est GFR (CKD-EPI)NonAf (>60 ml/min/1.73 sqM) Glucose (74-99) mg/dL Plasma Lactic Acid Morgan 1.5 (0.7-2.0) mmol/L Calcium (8.4-10.2) mg/dL Total Bilirubin (0.2-1.3) mg/dL AST (17-59) U/L ALT (4-49) U/L Alkaline Phosphatase (38-126) U/L Troponin I <0.012 (0.000-0.034) ng/mL Total Protein (6.3-8.2) g/dL Albumin (3.5-5.0) g/dL Lipase (23-300) U/L Urine Color Urine Appearance (Clear) Urine pH (5.0-8.0) Ur Specific [place] (1.001-1.035) Urine Protein (Negative) Urine Glucose (UA) (Negative) Urine Ketones (Negative) Urine Blood (Negative) Urine Nitrite (Negative) Urine Bilirubin (Negative) Urine Urobilinogen (<2.0) mg/dL Ur Leukocyte Esterase (Negative) - EKG Data -: EKG Interpreted by Ri EKG Comments: ventricular rate 56, NV interval 94 QRS 86, QT/QTc 460 since 443. Sinus bradycardia, otherwise normal EKG. No concern for acute ischemia this time. Disposition Clinical Impression: Constipation Disposition: HOME SELF-CARE Condition: Stable Instructions (If sedation given, give patient instructions): Constipation (ED) Additional Instructions: Follow up with PCP tomorrow. Continue your bowel regimen, increase fiber in diet. Return to ED with any worsening symptoms. Is patient prescribed a controlled substance at d/c from ED?: No Referrals: Boogie Chirinos MD [Primary Care Provider] - 1-2 days
== END 2020-08-23 20:38 | disposition home or self-care (01) ==
LOC: EC 16:55
DX: K59.00 Constipation, unspecified (principal); E86.0 Dehydration; K59.89 Other specified functional intestinal disorders; G20 Parkinson's disease; Z79.899 Other long term (current) drug therapy; Z79.82 Long term (current) use of aspirin; Z91.048 Other nonmedicinal substance allergy status; Z88.0 Allergy status to penicillin
CPT/HCPCS: 36415; 74018; 80053; 81003; 83605; 83690; 84484; 85025; 93005; 96360; 99284

== ENCOUNTER 2020-10-27 16:17 | Inpatient (IN) | payer MEDICARE ==
[2020-10-27] MEDS ORDERED: MAGNESIUM HYDROXIDE 2,400 MG/10 ML CUP PO PRN (16:39)
[2020-10-27] MEDS ORDERED: HYDROmorphone 0.5 MG/0.5 ML SYRINGE IVP PRN ×2 (16:39)
[2020-10-27] MEDS ORDERED: traMADol 50 MG TAB PO PRN (16:39)
[2020-10-27] MEDS ORDERED: HYDROcodone/APAP 10-325MG 1 EACH TAB PO PRN (16:39)
[2020-10-27] MEDS ORDERED: NALOXONE 0.4 MG/ML 1 ML VIAL IV PRN (16:39)
[2020-10-27] MEDS ORDERED: diazePAM 5 MG TAB PO PRN (16:39)
[2020-10-27] MEDS ORDERED: ONDANSETRON 4 MG/2 ML VIAL IVP PRN (16:39)
[2020-10-27] MEDS ORDERED: TEMAZEPAM 15 MG CAP PO PRN (16:39)
[2020-10-27] MEDS ORDERED: HYDROmorphone 0.2 MG/1 ML SYRINGE IVP PRN (16:39)
[2020-10-27] MEDS ORDERED: ACETAMINOPHEN TAB 325 MG TAB PO PRN (16:39)
--- NOTE | 2020-10-27 17:04 | P.HPOR ---
History of Present Illness H&P Date: 10/27/20 Chief Complaint: Right hip fracture Patient is a 69 year old male seen in office today 10/27/20. Patient returns today for worsening right hip pain over the past week. He's had no new injury. However he has had worsening pain with ambulating weightbearing. He denies radicular symptoms including numbness or tingling. He has no other acute complaints. Prior history: The patient is a 69 -year old right-hand dominant male with a medical history significant for Parkinson's disease who presents today for evaluation of his right hip and right elbow. He describes an injury today, 10/17/20 when he fell. The patient rates his hip pain today in the office 5/10 and finds his symptoms are worse with standing and walking and his elbow pain is 5/10 and worse with lifting. He describes pain with weight bearing on the right hip. 0" The patient describe the injury as: fell on hip and elbow. The date of injury was 10/17/2020. The patient is right hand dominant. Patient states his pain level is at 5/10. He continues to have pain. He describes his pain as sharp. The pain is intermittent. Patient states his symptoms are worse with standing and walking. Patient does not work outside of his home. The patient has had treatment for his symptoms including cane. Review of Systems All systems: negative Constitutional: Denies chills, Denies fever Eyes: denies blurred vision, denies pain Ears, nose, mouth and throat: Denies headache, Denies sore throat Cardiovascular: Denies chest pain, Denies shortness of breath Respiratory: Denies cough Gastrointestinal: Denies abdominal pain, Denies diarrhea, Denies nausea, Denies vomiting Musculoskeletal: Denies myalgias Integumentary: Denies pruritus, Denies rash Neurological: Denies numbness, Denies weakness Psychiatric: Denies anxiety, Denies depression Endocrine: Denies fatigue, Denies weight change Past Medical History Additional Past Medical History / Comment(s): parkinson's History of Any Multi-Drug Resistant Organisms: C-DIFF Date of last positivie culture/infection: 12/10/2016 MDRO Source:: "marginal" c-diff, pt states this is "all gone" Past Surgical History: Orthopedic Surgery Additional Past Surgical History / Comment(s): right knee sx, back sx, neck surgery Past Psychological History: No Psychological Hx Reported Smoking Status: Never smoker Past Alcohol Use History: Occasional Past Drug Use History: None Reported Medications and Allergies Home Medications Medication Instructions Recorded Confirmed Type amantadine HCL [Symmetrel] 100 mg PO BID 12/31/16 08/23/20 History Aspirin 162 mg PO DAILY 08/05/19 08/23/20 History Carbidopa-Levodopa 25-100 mg 1 tab PO DAILY PRN 08/23/20 08/23/20 History [Sinemet 25-100 mg] Carbidopa/Levodopa/Entacapone 1 tab PO TID 08/23/20 08/23/20 History [Isezftcfk-Rebialiw-Rvtg 200 mg] Donepezil HCl [Aricept] 10 mg PO DAILY 08/23/20 08/23/20 History Polyethylene Glycol 3350 [Miralax] 17 gm PO DAILY 08/23/20 08/23/20 History Tamsulosin HCl [Flomax] 0.4 mg PO W/SUPPER 08/23/20 08/23/20 History Allergies Allergy/AdvReac Type Severity Reaction Status Date / Time bee pollen Allergy Unknown Verified 08/23/20 18:56 Penicillins AdvReac Diarrhea Verified 08/23/20 18:56 (C-Diff) Physical Examination Right Hip Examination On inspection there are no wounds erythema or ecchymosis to the right hip. Range of motion was not tested due to the fracture. Calf is soft nontender. Motor and sensation is intact throughout the lower extremity. Full inversion, eversion, plantar flexion and dorsiflexion of the foot. Intact sensation at the lateral, medial and plantar first dorsal web spaces. There is 2+ posterior tibial pulse with brisk capillary refill in all digits. Results Xrays in office today show nondisplaced subcapital femoral neck fracture Assessment and Plan (1) Closed right hip fracture Narrative/Plan: Patient has been seen by Dr. Bergman. He has recommended direct admission with plan for surgical intervention including right hip hemiarthroplasty for his right hip fracture. He is being admitted to the hospital today and we will request preoperative clearance and medical management. Case will be boarded for tomorrow with plan for 7am, 10/28/20. He is to be nothing by mouth after midnight. He will need discharge planning and possible placement. Status: Acute Priority: Medium Code(s): S72.001A - FRACTURE OF UNSP PART OF NECK OF RIGHT FEMUR, INIT SNOMED Code(s): 077345412 Time with Patient: Less than 30
[2020-10-27 19:32] LABS: ALT 13 U/L (4-49); AST 24 U/L (17-59); African American GFR (CKD) 85 (>60 ml/min/1.73 sqM); Albumin 4.1 g/dL (3.5-5.0); Albumin/Globulin Ratio 1.5; Alkaline Phosphatase 91 U/L (38-126); Anion Gap 6 mmol/L; Blood Urea Nitrogen 29 mg/dL (9-20); Calcium 9.2 mg/dL (8.4-10.2); Carbon Dioxide 27 mmol/L (22-30); Chloride 106 mmol/L (98-107); Globulin 2.7 g/dL; Glucose 123 mg/dL (74-99); Non-African American GFR(CKD) 74 (>60 ml/min/1.73 sqM); Potassium 4.3 mmol/L (3.5-5.1); Sodium 139 mmol/L (137-145); Total Bilirubin 1.9 mg/dL (0.2-1.3); Total Protein 6.8 g/dL (6.3-8.2)
[2020-10-27 19:35] LABS: Partial Thromboplastin Time 22.7 sec (22.0-30.0); Prothrombin Time 10.8 sec (9.0-12.0)
[2020-10-27 19:58] LABS: Basophils % (A) 0 %; Eosinophils % (A) 0 %; HCT 42.6 % (39.0-53.0); HGB 14.4 gm/dL (13.0-17.5); Lymphocytes # (A) 0.9 k/uL (1.0-4.8); Lymphocytes % (A) 8 %; MCH 32.6 pg (25.0-35.0); MCHC 33.7 g/dL (31.0-37.0); MCV 96.6 fL (80.0-100.0); Mean Platelet Volume 6.9; Monocytes # (A) 0.8 k/uL (0-1.0); Monocytes % (A) 7 %; Neutrophils # (A) 9.4 k/uL (1.3-7.7); Neutrophils % (A) 83 %; Platelet Count 221 k/uL (150-450); RBC 4.41 m/uL (4.30-5.90); RDW 12.7 % (11.5-15.5); WBC 11.2 k/uL (3.8-10.6)
[2020-10-27] MEDS: SENNOSIDES-DOCUSATE SODIUM 1 EACH TAB PO SCH (21:41)
[2020-10-27] MEDS: HYDROcodone/APAP 5-325MG 1 EACH TAB PO PRN (21:41)
[2020-10-28] MEDS ORDERED: CARBIDOPA-LEVODOPA 25-100 MG 1 EACH TAB PO PRN (07:57)
--- NOTE | 2020-10-28 08:21 | XR ---
EXAMINATION TYPE: XR chest 1V portable DATE OF EXAM: 10/28/2020 COMPARISON: 10/30/2017 INDICATION: Preop clearance TECHNIQUE: Single frontal view of the chest is obtained. FINDINGS: The heart size is normal. The pulmonary vasculature is normal. Minimal nonspecific right lower lung field infiltrate may be present. This is nonspecific. Subsegment al atelectasis or atypical pneumonia could be considered. This appears to been interval change from c omparison. IMPRESSION: 1. Minimal right lower lobe infiltrate may be present. Correlate for atelectasis or atypical pneumoni a.
[2020-10-28 09:06] LABS: Basophils % (A) 0 %; Eosinophils % (A) 0 %; HCT 41.3 % (39.0-53.0); HGB 13.8 gm/dL (13.0-17.5); Lymphocytes # (A) 1.4 k/uL (1.0-4.8); Lymphocytes % (A) 15 %; MCH 32.3 pg (25.0-35.0); MCHC 33.5 g/dL (31.0-37.0); MCV 96.4 fL (80.0-100.0); Mean Platelet Volume 6.9; Monocytes # (A) 0.8 k/uL (0-1.0); Monocytes % (A) 8 %; Neutrophils # (A) 7.2 k/uL (1.3-7.7); Neutrophils % (A) 75 %; Platelet Count 201 k/uL (150-450); RBC 4.28 m/uL (4.30-5.90); RDW 12.8 % (11.5-15.5); WBC 9.5 k/uL (3.8-10.6)
[2020-10-28] MEDS ORDERED: SODIUM CHLORIDE 0.9% 100 ML BAG ONE (10:10)
[2020-10-28] MEDS ORDERED: KETAMINE 10 MG/ML 20 ML VIAL ONE (10:10)
[2020-10-28] MEDS ORDERED: PHENYLEPHRINE 10 MG/ML VIAL ONE (10:10)
[2020-10-28] MEDS ORDERED: PROPOFOL 10 MG/ML 20 ML VIAL IV ONE (10:10)
[2020-10-28] MEDS ORDERED: TRANEXAMIC ACID 1,000 MG/10 ML VIAL ONE (10:10)
[2020-10-28] MEDS ORDERED: ePHEDrine SULFATE/0.9% NACL/PF 50 MG/5 ML SYRINGE IV ONE (10:10)
[2020-10-28] MEDS ORDERED: MIDAZOLAM 2 MG/2 ML VIAL ONE (10:10)
[2020-10-28] MEDS ORDERED: LACTATED RINGERS 1,000 ML IV ONE (10:12)
[2020-10-28] MEDS ORDERED: SODIUM CHLORIDE 0.9% 50 ML with ceFAZolin 2,000 MG IV ONE ×2 (10:40)
[2020-10-28] MEDS ORDERED: TRANEXAMIC ACID 1,000 MG in SODIUM CHLORIDE 0.9% 100 ML IVPB ONE ×4 (11:00)
[2020-10-28] MEDS: polyethylene glycoL 3350 17 GM POWD.PACK PO SCH (12:46)
[2020-10-28] MEDS: ENTACAPONE 200 MG TAB PO SCH ×3 (12:57→21:10)
[2020-10-28] MEDS: CARBIDOPA-LEVODOPA 25-100 MG 1 EACH TAB PO SCH ×3 (13:00→21:10)
[2020-10-28] MEDS: LACTATED RINGERS 1,000 ML IV SCH (13:03)
--- NOTE | 2020-10-28 13:23 | XR ---
EXAMINATION TYPE: XR Hip Limited RT DATE OF EXAM: 10/28/2020 COMPARISON: None HISTORY: Post hip surgery TECHNIQUE: AP right hip is obtained following prosthesis placement FINDINGS: No acute fractures are evident. Right hip prosthesis is present. Femoral component articula lindsay with the acetabulum. Postsurgical soft tissue changes are evident IMPRESSION: 1. No acute fracture post right hip replacement
[2020-10-28] MEDS: DONEPEZIL 10 MG TAB PO SCH (14:46)
[2020-10-28] MEDS: MULTIVITAMINS, THERA 1 EACH TAB PO SCH (14:46)
[2020-10-28] MEDS: ASPIRIN 81 MG PO SCH (14:46)
--- NOTE | 2020-10-28 16:47 | OP ---
OPERATIVE REPORT DATE OF PROCEDURE: 10/28/2020. SURGEON: Williams Bergman M.D. TILE MECHANIC HELPER: Eduin ISAAC. PREOPERATIVE DIAGNOSIS: Right displaced femoral neck fracture. POSTOP DIAGNOSIS: Right displaced femoral neck fracture. PROCEDURE PERFORMED: Right hip hemiarthroplasty. ANESTHESIA: Spinal with sedation. ESTIMATED BLOOD LOSS: 100 mL. TOURNIQUET: None. DRAINS: None. COMPLICATIONS: None apparent. DISPOSITION: Postanesthesia care unit. INDICATIONS: Dima is a very pleasant 69-year-old male who presented to my office late yesterday afternoon with right hip pain. Workup including x-rays revealed a mildly displaced subcapital femoral neck fracture. Dima does have a medical history of advanced Parkinson disease as well. He was admitted to the hospital from my office yesterday. He was cleared for surgery and we made a decision to proceed with surgery this morning for his right hip. The risks of procedure were discussed with him and his in detail. These risks include, but are not limited to risk of infection, nerve damage, bleeding, pain, and a small risk of deep vein thrombosis which could lead to fatal pulmonary embolism. Further risks include lack of instability in the hip and periprosthetic fracture. All of Dima's and his 's questions were answered to their satisfaction. Appropriate informed consent was obtained. DESCRIPTION OF THE PROCEDURE: The patient identified in preop holding area. Surgical site was marked by both the patient and myself. He was given 2 g of Ancef IV for prophylactic purposes. He was then transferred to the operative suite. He was placed supine on the operative table. A spinal anesthetic was then administered, dosed per the anesthesia without apparent complication. He was then placed into the left lateral decubitus position well-padded in preparation for surgery. Great care was taken to ensure that he had a well-padded axillary roll placed as well and his legs were appropriately padded as well. The patient's right lower extremity was then prepped and draped in usual sterile fashion. Standard surgical pause undertaken to ensure that we were operating on the correct site and that appropriate preoperative antibiotics were given. All staff were in agreement and we proceeded. The outlines of the greater trochanter and proximal femur were marked surgical pen. A planned 12 to 15 cm incision based off the tip of the greater trochanter in line with the shaft of the femur was then marked surgical pen. The incision was then made with a 10 blade scalpel. Dissection carried down sharply to the tensor fascia. Great care was taken to ensure we maintain thick flaps for closure at the end of the case. Hemostasis was achieved with electrocautery. The tensor fascia was then incised in line with the incision. This exposed the underlying gluteus medius musculature. The raphae between the anterior 1/3 posterior 2/3 of the gluteus medius was identified. I then performed an anterolateral Hardinge type approach to the hip. The gluteus medius, gluteus minimus and anterior capsule were taken off in a sleeve and anteriorly. The femoral neck fracture was really then identified. I then utilized the guide to tim a freshened femoral neck cut. A fresh femoral neck cut was then made with the reciprocating saw. I then removed the lone pine femoral head with the corkscrew device. The lone pine femoral head was then measured and measured 60 mm. A 60 mm trial was then placed on the lollipop. It was placed into the acetabulum. It had a good suction fit. I then proceeded with preparation of the proximal femur. The leg was flexed and then externally rotated. This gave me good exposure to the proximal femur. The box toe flanger stitchdowns was utilized to gain access to the proximal femur. I then started with the starting reamer and then incrementally reamed the proximal femur up to a size 13. I then proceeded to broach the proximal femur. I started with a size 8 broach and incrementally increased up to a size 13 broach. Broaching was done in approximately 10- 15 degrees of anteversion. The size 13 broach fit very tightly. I started with a -6 neck and a 60 monopolar head and then trialed. We then progressively trialed up to a neutral neck with a 60 monopolar head. The hip was very stable with a neutral neck. It was taken through full range of motion. There was no instability. There was very minimal Shuck. The hip was then carefully then redislocated. The trial components were removed. I had the agency sales representative opened a Biomet Bimetric 13 collared hip stem, a standard neck and a 60 monopolar head. The real stem was then impacted into the proximal femur. Again this was done in approximately 10-15 degrees of anteversion. There was a very good press fit. The trunnion was then dried and the size 60 monopolar head with a standard neck was then impacted onto the dried trunnion. The hip was then reduced. Again it was very stable. Taken through full range of motion. We then proceeded with closure. The hip was then thoroughly irrigated with sterile saline solution and antibiotic added. The gluteus medius, minimus and anterior capsule were repaired back to the greater trochanter with #5 Ethibond interrupted transosseous suture. The raphae between the anterior third and posterior 2/3 of the gluteus medius was closed with #1 Vicryl interrupted suture. The tensor fascia was then repaired with #2 running Quill suture. The wound was again thoroughly irrigated with sterile saline solution with antibiotic added. Subcutaneous tissue closed with 2-0 Vicryl interrupted suture. The skin was closed with a running 3-0 Quill suture. Dermabond was applied to the incision. Sterile compressive dressing was then applied and the patient's lower extremities were placed into a hip abduction pillow. All sponge and needle counts were deemed correct prior to closure. The patient tolerated the procedure without apparent complication. He was transferred recovery room in stable condition. MMODL / IJN: [id number] /
[2020-10-28] MEDS: TAMSULOSIN 0.4 MG CAP.ER.24H PO SCH (17:16)
[2020-10-28] MEDS: HYDROcodone/APAP 5-325MG 1 EACH TAB PO PRN (17:45)
--- NOTE | 2020-10-28 20:17 | P.CONS ---
History of Present Illness - Reason for Consult Consult date: 10/28/20 Medical managed Requesting physician: Williams Bergman - Chief Complaint Hip pain - History of Present Illness Consultation: This is a pleasant 69-year-old patient was chronic stable medical conditions include osteoarthritis, Parkinson's disease, kidney dysfunction. Patient was seen in Dr. Bergman's office on October 27 of the return to the office for worsening right hip pain. No new injury. He had fallen on October 17 and was having some pain in his right ear. And it was worse with any kind of activity. Most of lifting. Patient was then admitted. Patient does not have any chest pain or shortness of breath. And has a rather limited excess tolerance. No cardiac history. I had treated the patient for surgery earlier. Patient underwent a right hip hemiarthroplasty for displaced right femoral neck fracture. Review of systems: GEN.: Tired EYES: None HEENT: None NECK: None RESPIRATORY: None CARDIOVASCULAR: None GASTROINTESTINAL: None GENITOURINARY: None MUSCULOSKELETAL: Joint pains LYMPHATICS: None HEMATOLOGICAL: None PSYCHIATRY: None NEUROLOGICAL: Tremors. Past medical history to include: Osteoarthritis, Parkinson, gait dysfunction, BPH, cognitive impairment Social history: No history of smoking. Alcohol occasional. Physical examination: VITAL SIGNS: 98, 61, 20, 107/62, 96% on 8 L. Previously 96% on room air GENERAL: BMI 25.4, laying in bed, awake. EYES: Pupils equal. Conjunctiva normal. HEENT: External appearance of nose and ears normal, oral cavity grossly normal. NECK: JVD not raised; masses not palpable. HEART: First and second heart sounds are normal; no edema. LUNGS: Respiratory rate normal; clear to auscultation. ABDOMEN: Soft, nontender, liver spleen not palpable, no masses palpable. PSYCH: [Able to answer some simple questions l. MUSCULAR skeletal: Evidence of OA. Dressing over the right hip NEUROLOGICAL: [Cranial nerves grossly intact; slow movements and some tremors LYMPHATICS: No lymph nodes palpable in the axilla and neck INVESTIGATIONS, reviewed in the clinical context: White count 12.2 hemoglobin 14.4 platelets 221 potassium 4.3 creatinine 1.04 Chest x-ray film personally reviewed by me-some chronic changes possible fibrotic Assessment: -6 is a patient took a fall on October 17 still having pain in the right hip. Return to Dr. Bergman's office. Admitted after a fracture was discovered. No s tatus post right hip hemiarthroplasty. -Primary osteoarthritis -Idiopathic Parkinson disorder -Chronic gait dysfunction -Cognitive impairment from Parkinson disease Plan: Patient status post right hip repair. Home medications resumed. IV Ancef for perioperative infection control. Patient is on aspirin for DVT prophylaxis. Care was discussed with the patient. Getting IV fluids. Thank you Dr. Bergman Past Medical History Past Medical History: Musculoskeletal Disorder Additional Past Medical History / Comment(s): Parkinson's History of Any Multi-Drug Resistant Organisms: C-DIFF Year Discovered:: 12/10/2016 MDRO Source:: "marginal" c-diff, pt states this is "all gone" Past Surgical History: Orthopedic Surgery Additional Past Surgical History / Comment(s): right knee sx, back sx, neck surgery Past Psychological History: No Psychological Hx Reported Smoking Status: Never smoker Past Alcohol Use History: Occasional Past Drug Use History: None Reported Medications and Allergies Home Medications Medication Instructions Recorded Confirmed Type amantadine HCL [Symmetrel] 100 mg PO BID 12/31/16 10/27/20 History Aspirin 162 mg PO DAILY 08/05/19 10/27/20 History Carbidopa-Levodopa 25-100 mg 1 tab PO DAILY PRN 08/23/20 10/27/20 History [Sinemet 25-100 mg] Carbidopa/Levodopa/Entacapone 1 tab PO TID 08/23/20 10/27/20 History [Nlenuvyof-Xovzcdlt-Ijoe 200 mg] Donepezil HCl [Aricept] 10 mg PO DAILY 08/23/20 10/27/20 History Polyethylene Glycol 3350 [Miralax] 17 gm PO DAILY 08/23/20 10/27/20 History Tamsulosin HCl [Flomax] 0.4 mg PO W/SUPPER 08/23/20 10/27/20 History Allergies Allergy/AdvReac Type Severity Reaction Status Date / Time bee pollen Allergy Unknown Verified 10/27/20 20:29 Penicillins AdvReac Diarrhea Verified 10/27/20 20:29 (C-Diff) Physical Exam Vitals: Vital Signs Temp Pulse Pulse Resp BP Pulse Ox 10/28/20 12:04 80 20 104/52 100 10/28/20 11:48 98 F 61 20 107/62 96 10/28/20 08:00 16 10/28/20 07:43 97.7 F 65 16 129/69 97 10/28/20 02:10 98.6 F 16 167/74 96 10/27/20 20:10 98.3 F 79 16 152/76 97 10/27/20 20:00 16 Intake and Output 10/27/20 10/28/20 10/28/20 22:59 06:59 14:59 Intake Total 950 Output Total 800 400 Balance -800 550 Intake: IV 950 Output: Urine 800 300 Estimated Blood Loss 100 Other: Voiding Method Indwelling Catheter Indwelling Catheter Weight 99.7 kg Results CBC & Chem 7: 10/28/20 08:25 10/27/20 19:08 Labs: Abnormal Lab Results - Last 24 Hours (Table) 10/27/20 10/27/20 10/28/20 Range/Units 19:08 19:09 08:25 WBC 11.2 H (3.8-10.6) k/uL RBC 4.28 L (4.30-5.90) m/uL Neutrophils # 9.4 H (1.3-7.7) k/uL Lymphocytes # 0.9 L (1.0-4.8) k/uL BUN 29 H (9-20) mg/dL Glucose 123 H (74-99) mg/dL Total Bilirubin 1.9 H (0.2-1.3) mg/dL
[2020-10-28] MEDS: SENNOSIDES-DOCUSATE SODIUM 1 EACH TAB PO SCH (21:09)
[2020-10-29] MEDS: LACTATED RINGERS 1,000 ML IV SCH (00:19)
[2020-10-29 06:20] LABS: Basophils % (A) 0 %; Eosinophils % (A) 0 %; HGB 13.5 gm/dL (13.0-17.5); Lymphocytes % (A) 9 %; MCH 31.7 pg (25.0-35.0); MCHC 32.8 g/dL (31.0-37.0); MCV 96.6 fL (80.0-100.0); Mean Platelet Volume 7.6; Monocytes # (A) 0.9 k/uL (0-1.0); Monocytes % (A) 9 %; Neutrophils # (A) 8.4 k/uL (1.3-7.7); Neutrophils % (A) 80 %; Platelet Count 185 k/uL (150-450); RBC 4.24 m/uL (4.30-5.90); RDW 12.6 % (11.5-15.5); WBC 10.4 k/uL (3.8-10.6)
[2020-10-29] MEDS: CARBIDOPA-LEVODOPA 25-100 MG 1 EACH TAB PO SCH ×3 (08:28→21:19)
[2020-10-29] MEDS: DONEPEZIL 10 MG TAB PO SCH (08:28)
[2020-10-29] MEDS: ASPIRIN 81 MG PO SCH (08:28)
[2020-10-29] MEDS: ENTACAPONE 200 MG TAB PO SCH ×3 (09:20→21:19)
[2020-10-29] MEDS: polyethylene glycoL 3350 17 GM POWD.PACK PO SCH (09:20)
--- NOTE | 2020-10-29 12:10 | P.PN ---
Progress Note - Text Progress Note Date: 10/29/20 Orthopedics: History of present illness: Patient is a pleasant 69-year-old male who is seen and examined at the bedside for follow-up evaluation for his right hip. He is status post right hip hemiarthroplasty performed by Dr. Williams Bergman yesterday, 10/28/2020. Patient states postoperatively he has had improvement of his right hip pain and that his pain is well-controlled. He has been utilizing an abductor pillow. He has had difficulty with mobilization postoperatively. His Mehta catheter remains intact. His urine is dark but states he has chronic dark urine due to Parkinson's medications. Patient is known have Parkinson's disease, chronic gait dysfunction, and cognitive impairment due to Parkinson's disease. Physical Exam Hip Hemiarthroplasty: Status post surgical day number 1 Patient is examined lying in bed Patient is awake, alert, and oriented 3 Vital signs stable Good chest excursion with deep inspiration and expiration No signs or symptoms of DVT; no calf pain Lower extremity cuffs in place bilaterally Abductor pillow intact Dressing of the right hip is clean, dry, and intact; no erythema, purulence, or signs of infection No significant pain with palpation over the surgical site Full range of motion of ankles bilaterally Neurovascularly intact bilateral lower extremities Assessment: Status post right hip hemiarthroplasty Right hip pain Status post fall Parkinson's disease Cognitive impairment due to Parkinson's disease Chronic gait dysfunction Plan: 1. Patient may continue to weight-bear as tolerated on the lower extremity with the assistance of a walker; patient may work with physical therapy to increase mobility and ambulation 2. Continue pain control with IV Dilaudid and oral Elton as prescribed as needed for control of his pain 3. Abductor pillow to remain in place at all times except while working with therapy 4. Medicine to continue following the patient for their other medical diagnoses including Parkinson's disease 5. Continue with with anticoagulation therapy with 162 mg by mouth daily as prescribed by Dr. Piedra 5. We'll continue to follow the patient; pending on the patient's progress, we may plan for discharge tomorrow to a rehabilitation facility if the patient is cleared by medicine 6. Patient can follow-up with Dr. Williams Bergman at [facility] in 2-3 weeks following discharge
[2020-10-29] MEDS: MULTIVITAMINS, THERA 1 EACH TAB PO SCH (12:54)
[2020-10-29] MEDS: TAMSULOSIN 0.4 MG CAP.ER.24H PO SCH (17:21)
--- NOTE | 2020-10-29 20:07 | P.PN ---
Progress Note - Text Progress Note Date: 10/29/20 - Chief Complaint Hip pain Consultation: This is a pleasant 69-year-old patient was chronic stable medical conditions include osteoarthritis, Parkinson's disease, kidney dysfunction. Patient was seen in Dr. Bergman's office on October 27 of the return to the office for worsening right hip pain. No new injury. He had fallen on October 17 and was having some pain in his right ear. And it was worse with any kind of activity. Most of lifting. Patient was then admitted. Patient does not have any chest pain or shortness of breath. And has a rather limited excess tolerance. No cardiac history. I had treated the patient for surgery earlier. Patient underwent a right hip hemiarthroplasty for displaced right femoral neck fracture. Today-sitting up in bed. Pain control. Eating well. Review of systems: Was done for constitutional, cardiovascular, GI, pulmonary. relevant finding as above Active Medications Acetaminophen (Acetaminophen Tab 325 Mg Tab) 650 mg PO Q4HR PRN PRN Reason: Pain Scale 1 to 5 Hydrocodone Bitart/Acetaminophen (Hydrocodone/Apap 5-325mg 1 Each Tab) 1 each PO Q6HR PRN PRN Reason: Pain Scale 1 to 5 Last Admin: 10/28/20 17:45 Dose: 1 each Documented by: Hydrocodone Bitart/Acetaminophen (Hydrocodone/Apap 10-325mg 1 Each Tab) 1 each PO Q6H PRN PRN Reason: Pain Scale 6 to 10 Amantadine HCl (Amantadine Hcl 100 Mg Cap) 100 mg PO BID [facility] Last Admin: 10/29/20 09:20 Dose: 100 mg Documented by: Aspirin (Aspirin 81 Mg) 162 mg PO DAILY [facility] Last Admin: 10/29/20 08:28 Dose: 162 mg Documented by: Carbidopa/Levodopa (Carbidopa-Levodopa 25-100 Mg 1 Each Tab) 1 each PO DAILY PRN PRN Reason: Parkinsonism Carbidopa/Levodopa (Carbidopa-Levodopa 25-100 Mg 1 Each Tab) 2 each PO TID [facility] Last Admin: 10/29/20 17:21 Dose: 2 each Documented by: Diazepam (Diazepam 5 Mg Tab) 2.5 mg PO Q8HR PRN PRN Reason: Mild Spasms Donepezil HCl (Donepezil 10 Mg Tab) 10 mg PO DAILY [facility] Last Admin: 10/29/20 08:28 Dose: 10 mg Documented by: Entacapone (Entacapone 200 Mg Tab) 200 mg PO TID [facility] Last Admin: 10/29/20 17:21 Dose: 200 mg Documented by: Hydromorphone HCl (Hydromorphone 0.2 Mg/1 Ml Syringe) 0.2 mg IVP Q3HR PRN PRN Reason: Pain Scale 4 to 6 Hydromorphone HCl (Hydromorphone 0.5 Mg/0.5 Ml Syringe) 0.125 mg IVP Q3HR PRN PRN Reason: Pain Scale 1 to 3 Hydromorphone HCl (Hydromorphone 0.5 Mg/0.5 Ml Syringe) 0.5 mg IVP Q3HR PRN PRN Reason: Pain Scale 7 to 10 Lactated Ringer's (Lactated Ringers) 1,000 mls @ 100 mls/hr IV .Q10H [facility] Last Admin: 10/29/20 00:19 Dose: Not Given Documented by: Magnesium Hydroxide (Magnesium Hydroxide 2,400 Mg/10 Ml Cup) 2,400 mg PO DAILY PRN PRN Reason: Constipation Multivitamins (Multivitamins, Thera 1 Each Tab) 1 each PO DAILY@1200 [facility] Last Admin: 10/29/20 12:54 Dose: 1 each Documented by: Naloxone HCl (Naloxone 0.4 Mg/Ml 1 Ml Vial) 0.2 mg IV Q2M PRN PRN Reason: Opioid Reversal Ondansetron HCl (Ondansetron 4 Mg/2 Ml Vial) 4 mg IVP Q8HR PRN PRN Reason: Nausea And Vomiting Polyethylene Glycol (Polyethylene Glycol 3350 17 Gm Powd.Pack) 17 gm PO DAILY [facility] Last Admin: 10/29/20 09:20 Dose: 17 gm Documented by: Senna/Docusate Sodium (Sennosides-Docusate Sodium 1 Each Tab) 2 each PO HS [facility] Last Admin: 10/28/20 21:09 Dose: 2 each Documented by: Tamsulosin HCl (Tamsulosin 0.4 Mg Cap.Er.24h) 0.4 mg PO W/SUPPER [facility] Last Admin: 10/29/20 17:21 Dose: 0.4 mg Documented by: Temazepam (Temazepam 15 Mg Cap) 15 mg PO HS PRN PRN Reason: Insomnia Tramadol HCl (Tramadol 50 Mg Tab) 50 mg PO Q6HR PRN PRN Reason: Pain Scale 1 to 5 Physical examination: VITAL SIGNS: 97.9, 84, 16, 137/72, 97% room air GENERAL: BMI 25.4, sitting up in bed, comfortable EYES: Pupils equal. Conjunctiva normal. NECK: JVD not raised; masses not palpable. HEART: First and second heart sounds are normal; no edema. LUNGS: Respiratory rate normal; clear to auscultation. ABDOMEN: Soft, nontender, liver spleen not palpable, no masses palpable. PSYCH: Able to answer some simple questions. MUSCULAR skeletal: Evidence of OA. Dressing over the right hip NEUROLOGICAL: Bradykinesia and some tremors INVESTIGATIONS, reviewed in the clinical context: October 29: White count 10.4 hemoglobin 13.5 White count 12.2 hemoglobin 14.4 platelets 221 potassium 4.3 creatinine 1.04 Chest x-ray film personally reviewed by me-some chronic changes possible fibrotic Assessment: - mechanical right femur neck fracture.-right hip hemiarthroplasty. -Primary osteoarthritis -Idiopathic Parkinson disorder -Chronic gait dysfunction -Cognitive impairment from Parkinson disease Plan: Continue current medication treatment plan. The CLL. Discussed with patient. Thank you Dr. Bergman
[2020-10-29] MEDS: SENNOSIDES-DOCUSATE SODIUM 1 EACH TAB PO SCH (21:18)
[2020-10-30 06:35] LABS: Basophils % (A) 0 %; Eosinophils % (A) 0 %; HCT 38.9 % (39.0-53.0); HGB 12.6 gm/dL (13.0-17.5); Lymphocytes # (A) 0.9 k/uL (1.0-4.8); Lymphocytes % (A) 10 %; MCH 31.5 pg (25.0-35.0); MCHC 32.3 g/dL (31.0-37.0); MCV 97.3 fL (80.0-100.0); Mean Platelet Volume 7.3; Monocytes # (A) 0.8 k/uL (0-1.0); Monocytes % (A) 8 %; Neutrophils # (A) 7.7 k/uL (1.3-7.7); Neutrophils % (A) 80 %; Platelet Count 192 k/uL (150-450); RDW 12.6 % (11.5-15.5); WBC 9.6 k/uL (3.8-10.6)
[2020-10-30] MEDS: LACTATED RINGERS 1,000 ML IV SCH ×2 (08:19→14:44)
[2020-10-30] MEDS: CARBIDOPA-LEVODOPA 25-100 MG 1 EACH TAB PO SCH ×3 (08:24→21:58)
[2020-10-30] MEDS: polyethylene glycoL 3350 17 GM POWD.PACK PO SCH (08:24)
[2020-10-30] MEDS: ASPIRIN 81 MG PO SCH (08:25)
[2020-10-30] MEDS: MULTIVITAMINS, THERA 1 EACH TAB PO SCH (08:25)
[2020-10-30] MEDS: DONEPEZIL 10 MG TAB PO SCH (08:25)
[2020-10-30] MEDS: ENTACAPONE 200 MG TAB PO SCH ×3 (08:26→21:58)
--- NOTE | 2020-10-30 10:01 | P.PN ---
Subjective Progress Note Date: 10/30/20 Principal diagnosis: Right hip hemiarthroplasty Patient is seen at bedside this morning. He is postop day #2 from right hip carlos alberto arthroplasty. He has pain at the surgical site as expected but denies any new complaints. He denies numbness, tingling or calf pain. Review of systems is negative for fever, chills, chest pain, shortness of breath or other Objective - Vital Signs Vital signs: Vital Signs Temp 97.6 F 10/30/20 07:27 Pulse 81 10/30/20 07:27 Resp 16 10/30/20 07:27 BP 124/66 10/30/20 07:27 Pulse Ox 94 L 10/30/20 07:27 Intake & Output 10/29/20 10/30/20 10/30/20 18:59 06:59 18:59 Output Total 1200 Balance -1200 Output: Urine 1200 Other: Voiding Method Indwelling Catheter Indwelling Catheter - Exam Inspection reveals a benign surgical wound. There is no active bleeding or drainage. Neurovascular status is intact throughout the lower extremity with motor and sensation fully intact. Calf is soft and nontender. 2+ dorsalis pedis pulse and less than 2 second cap refill is present. - Constitutional General appearance: Present: no acute distress - Labs CBC & Chem 7: 10/30/20 06:05 10/27/20 19:08 Labs: Abnormal Lab Results - Last 24 Hours (Table) 10/30/20 Range/Units 06:05 RBC 4.00 L (4.30-5.90) m/uL Hgb 12.6 L (13.0-17.5) gm/dL Hct 38.9 L (39.0-53.0) % Lymphocytes # 0.9 L (1.0-4.8) k/uL Assessment and Plan (1) Closed right hip fracture Narrative/Plan: He will continue with routine postop orthopedic protocol including pain management, wound care, PT, DVT prophylaxis and medical management. Expect that he will transfer to home with home health in next 1-2 days. Current Visit: No Status: Acute Priority: Medium Code(s): S72.001A - FRACTURE OF UNSP PART OF NECK OF RIGHT FEMUR, INIT SNOMED Code(s): 181488496 Time with Patient: Less than 30
--- NOTE | 2020-10-30 10:48 | P.CONS ---
History of Present Illness - Chief Complaint Walking difficulty - History of Present Illness I had the opportunity to see patient for inpatient rehab consultation with regard to walking difficulty. Patient admitted to [facility] October 27 history of fall at home and right hip pain. Patient was seen and Dr. Bergman's office and then reevaluation and was admitted on October 27. Underwent operative repair October 28, Dr. Bergman. Seen postoperatively by Dr. Piedra a postoperative x-ray was done. PT and OT prescribed. Previous functional history as elicited from patient: 69-year-old right-handed w piedad male who is lives in one floor home with . Both retired. gently does the cooking and they share laundry and driving. Patient dependent with standing shower and gait without device previously. PMD Dr. Chirinos in [place]. Patient denies tobacco or alcohol. Family history mother was a smoker. Review of Systems Review of systems: ENT: Denies sneezes or discharge. Eyes: Denies discharge or photophobia. Cardiac: Denies chest pain or palpitation. Pulmonary: Denies cough or shortness of breath. Gastrointestinal: Denies nausea, emesis, constipation, diarrhea. Genitourinary: Denies discharge or frequency. Musculoskeletal: Right hip discomfort. Neurologic: Long-standing Parkinson. Endocrine: Denies shakes or sweats. Oncology: Denies cancers. Dermatologic: Denies rash, itching, pruritus. ALLERGY/immunology: Denies sneezes, rashes. Past Medical History Past Medical History: Musculoskeletal Disorder Additional Past Medical History / Comment(s): Parkinson's History of Any Multi-Drug Resistant Organisms: C-DIFF Year Discovered:: 12/10/2016 MDRO Source:: "marginal" c-diff, pt states this is "all gone" Past Surgical History: Orthopedic Surgery Additional Past Surgical History / Comment(s): right knee sx, back sx, neck surgery Past Psychological History: No Psychological Hx Reported Smoking Status: Never smoker Past Alcohol Use History: Occasional Past Drug Use History: None Reported Medications and Allergies Home Medications Medication Instructions Recorded Confirmed Type amantadine HCL [Symmetrel] 100 mg PO BID 12/31/16 10/27/20 History Aspirin 162 mg PO DAILY 08/05/19 10/27/20 History Carbidopa-Levodopa 25-100 mg 1 tab PO DAILY PRN 08/23/20 10/27/20 History [Sinemet 25-100 mg] Carbidopa/Levodopa/Entacapone 1 tab PO TID 08/23/20 10/27/20 History [Zbvubxmzt-Iutrmvbe-Iwie 200 mg] Donepezil HCl [Aricept] 10 mg PO DAILY 08/23/20 10/27/20 History Polyethylene Glycol 3350 [Miralax] 17 gm PO DAILY 08/23/20 10/27/20 History Tamsulosin HCl [Flomax] 0.4 mg PO W/SUPPER 08/23/20 10/27/20 History Allergies Allergy/AdvReac Type Severity Reaction Status Date / Time bee pollen Allergy Unknown Verified 10/27/20 20:29 Penicillins AdvReac Diarrhea Verified 10/27/20 20:29 (C-Diff) Physical Exam Vitals: Vital Signs Temp Pulse Resp BP Pulse Ox 10/30/20 07:27 97.6 F 81 16 124/66 94 L 10/30/20 02:30 98.3 F 59 L 17 117/64 94 L 10/29/20 20:40 98.1 F 67 16 147/77 96 10/29/20 20:00 67 16 10/29/20 14:00 98.3 F 81 16 132/72 93 L Intake and Output 10/29/20 10/30/20 10/30/20 22:59 06:59 14:59 Output Total 1200 Balance -1200 Output: Urine 1200 Other: Voiding Method Indwelling Catheter Skin: Atrophic, intact. General: Medium build and comfortable appearance. Head: Normocephalic, atraumatic. Eyes: Symmetric. Pupils equal round. Ears: Symmetric. Hearing within normal limits. Mouth: Clear. Neck: Supple. Carotid without bruit. Cardiac: Regular rate and rhythm. Lungs: Clear anteriorly and posteriorly. Abdomen: Soft active nontender. Extremities: Normal tone. Neurological: Mental status: Alert, cooperative, pleasant. Cranial nerves: Symmetric facial tone and trapezius. Motor: Active movement all 4 limbs but with giveaway weakness right hip and leg. Parkinson tremors throughout. Sensation: Intact throughout. DTRs: Symmetric and equal throughout. Mobility: Patient appears to be 1 person assist for standing and transfers. Results CBC & Chem 7: 10/30/20 06:05 10/27/20 19:08 Labs: Abnormal Lab Results - Last 24 Hours (Table) 10/30/20 Range/Units 06:05 RBC 4.00 L (4.30-5.90) m/uL Hgb 12.6 L (13.0-17.5) gm/dL Hct 38.9 L (39.0-53.0) % Lymphocytes # 0.9 L (1.0-4.8) k/uL Assessment and Plan (1) Closed right hip fracture Current Visit: No Status: Acute Priority: Medium Code(s): S72.001A - FRACTURE OF UNSP PART OF NECK OF RIGHT FEMUR, INIT SNOMED Code(s): 068707087 Plan: Impression: 1. Walking will. 2. Right hip fracture status post repair. 3. Parkinson disease. 4. Osteoarthritis. Comments and plan: At this time PT and OT are prescribed. I discussed with patient purpose of of the rehab consultation with eye to possible inpatient rehab. Note complication of the Parkinson which would seem to increase the likelihood of need of inpatient rehab.
[2020-10-30] MEDS: TAMSULOSIN 0.4 MG CAP.ER.24H PO SCH (17:38)
[2020-10-30] MEDS: SENNOSIDES-DOCUSATE SODIUM 1 EACH TAB PO SCH (21:58)
--- NOTE | 2020-10-30 22:57 | P.PN ---
Progress Note - Text Progress Note Date: 10/30/20 - Chief Complaint Hip pain Consultation: This is a pleasant 69-year-old patient was chronic stable medical conditions include osteoarthritis, Parkinson's disease, kidney dysfunction. Patient was seen in Dr. Bergman's office on October 27 of the return to the office for worsening right hip pain. No new injury. He had fallen on October 17 and was having some pain in his right ear. And it was worse with any kind of activity. Most of lifting. Patient was then admitted. Patient does not have any chest pain or shortness of breath. And has a rather limited excess tolerance. No cardiac history. I had treated the patient for surgery earlier. Patient underwent a right hip hemiarthroplasty for displaced right femoral neck fracture. Today-patient work with physical therapy and used a walker for about 20 feet. Eating okay. Pain control. Parkinson symptoms stable Review of systems: Was done for constitutional, cardiovascular, GI, pulmonary. relevant finding as above Active Medications Acetaminophen (Acetaminophen Tab 325 Mg Tab) 650 mg PO Q4HR PRN PRN Reason: Pain Scale 1 to 5 Hydrocodone Bitart/Acetaminophen (Hydrocodone/Apap 5-325mg 1 Each Tab) 1 each PO Q6HR PRN PRN Reason: Pain Scale 1 to 5 Last Admin: 10/28/20 17:45 Dose: 1 each Documented by: Hydrocodone Bitart/Acetaminophen (Hydrocodone/Apap 10-325mg 1 Each Tab) 1 each PO Q6H PRN PRN Reason: Pain Scale 6 to 10 Amantadine HCl (Amantadine Hcl 100 Mg Cap) [address] [facility] Last Admin: 10/30/20 21:58 Dose: 100 mg Documented by: Aspirin (Aspirin 81 Mg) [address] [facility] Last Admin: 10/30/20 08:25 Dose: 162 mg Documented by: Carbidopa/Levodopa (Carbidopa-Levodopa 25-100 Mg 1 Each Tab) 1 each PO DAILY PRN PRN Reason: Parkinsonism Carbidopa/Levodopa (Carbidopa-Levodopa 25-100 Mg 1 Each Tab) [address] [facility] Last Admin: 10/30/20 21:58 Dose: 2 each Documented by: Diazepam (Diazepam 5 Mg Tab) 2.5 mg PO Q8HR PRN PRN Reason: Mild Spasms Donepezil HCl (Donepezil 10 Mg Tab) [address] [facility] Last Admin: 10/30/20 08:25 Dose: 10 mg Documented by: Entacapone (Entacapone 200 Mg Tab) [address] [facility] Last Admin: 10/30/20 21:58 Dose: 200 mg Documented by: Hydromorphone HCl (Hydromorphone 0.2 Mg/1 Ml Syringe) 0.2 mg IVP Q3HR PRN PRN Reason: Pain Scale 4 to 6 Hydromorphone HCl (Hydromorphone 0.5 Mg/0.5 Ml Syringe) 0.125 mg IVP Q3HR PRN PRN Reason: Pain Scale 1 to 3 Hydromorphone HCl (Hydromorphone 0.5 Mg/0.5 Ml Syringe) 0.5 mg IVP Q3HR PRN PRN Reason: Pain Scale 7 to 10 Magnesium Hydroxide (Magnesium Hydroxide 2,400 Mg/10 Ml Cup) 2,400 mg PO DAILY PRN PRN Reason: Constipation Multivitamins (Multivitamins, Thera 1 Each Tab) 1 each PO DAILY@1200 [facility] Last Admin: 10/30/20 08:25 Dose: 1 each Documented by: Naloxone HCl (Naloxone 0.4 Mg/Ml 1 Ml Vial) 0.2 mg IV Q2M PRN PRN Reason: Opioid Reversal Ondansetron HCl (Ondansetron 4 Mg/2 Ml Vial) 4 mg IVP Q8HR PRN PRN Reason: Nausea And Vomiting Polyethylene Glycol (Polyethylene Glycol 3350 17 Gm Powd.Pack) [address] [facility] Last Admin: 10/30/20 08:24 Dose: 17 gm Documented by: Senna/Docusate Sodium (Sennosides-Docusate Sodium 1 Each Tab) [address] [facility] Last Admin: 10/30/20 21:58 Dose: Not Given Documented by: Tamsulosin HCl (Tamsulosin 0.4 Mg Cap.Er.24h) 0.4 mg PO W/SUPPER [facility] Last Admin: 10/30/20 17:38 Dose: 0.4 mg Documented by: Temazepam (Temazepam 15 Mg Cap) 15 mg PO HS PRN PRN Reason: Insomnia Tramadol HCl (Tramadol 50 Mg Tab) 50 mg PO Q6HR PRN PRN Reason: Pain Scale 1 to 5 Physical examination: VITAL SIGNS: 98.8, 72, 18, 1 26 x 65, 98% room air GENERAL: BMI 25.4, reclining in bed, comfortable EYES: Pupils equal. Conjunctiva normal. NECK: JVD not raised; masses not palpable. HEART: First and second heart sounds are normal; no edema. LUNGS: Respiratory rate normal; clear to auscultation. ABDOMEN: Soft, nontender, liver spleen not palpable, no masses palpable. PSYCH: Able to answer some simple questions. MUSCULAR skeletal: Evidence of OA. Dressing over the right hip NEUROLOGICAL: Bradykinesia and some tremors INVESTIGATIONS, reviewed in the clinical context: October 30: White count 9.6 hemoglobin 12.6 platelets 192 October 29: White count 10.4 hemoglobin 13.5 White count 12.2 hemoglobin 14.4 platelets 221 potassium 4.3 creatinine 1.04 Chest x-ray film personally reviewed by me-some chronic changes possible fibrotic Assessment: - mechanical right femur neck fracture.-right hip hemiarthroplasty. -Primary osteoarthritis -Idiopathic Parkinson disorder -Chronic gait dysfunction -Cognitive impairment from Parkinson disease Plan: Patient forgetful physical therapy. Discharge options being looked into. Continue current medication treatment plan. Discussed with patient. Thank you Dr. Bergman
[2020-10-31 08:24] LABS: Basophils % (A) 0 %; Eosinophils # (A) 0.2 k/uL (0-0.7); Eosinophils % (A) 2 %; HCT 39.7 % (39.0-53.0); HGB 13.3 gm/dL (13.0-17.5); Lymphocytes % (A) 11 %; MCH 32.4 pg (25.0-35.0); MCHC 33.4 g/dL (31.0-37.0); MCV 96.9 fL (80.0-100.0); Mean Platelet Volume 7.7; Monocytes # (A) 0.6 k/uL (0-1.0); Monocytes % (A) 7 %; Neutrophils # (A) 6.9 k/uL (1.3-7.7); Neutrophils % (A) 78 %; Platelet Count 238 k/uL (150-450); RDW 12.4 % (11.5-15.5); WBC 8.9 k/uL (3.8-10.6)
[2020-10-31] MEDS: CARBIDOPA-LEVODOPA 25-100 MG 1 EACH TAB PO SCH ×3 (08:27→22:14)
[2020-10-31] MEDS: DONEPEZIL 10 MG TAB PO SCH (08:27)
[2020-10-31] MEDS: ENTACAPONE 200 MG TAB PO SCH ×3 (08:28→22:13)
[2020-10-31] MEDS: polyethylene glycoL 3350 17 GM POWD.PACK PO SCH (08:28)
[2020-10-31] MEDS: ASPIRIN 81 MG PO SCH (08:28)
[2020-10-31] MEDS: MULTIVITAMINS, THERA 1 EACH TAB PO SCH (08:28)
--- NOTE | 2020-10-31 10:30 | P.PN ---
Subjective Progress Note Date: 10/31/20 Principal diagnosis: Right hip hemiarthroplasty Patient is seen at bedside this morning. He is postop day #3 from right hip carlos alberto arthroplasty. He has controlled pain at the surgical site and denies any new complaints. He denies numbness, tingling or calf pain. Review of systems is negative for fever, chills, chest pain, shortness of breath or other Objective - Vital Signs Vital signs: Vital Signs Temp 98.9 F 10/31/20 07:45 Pulse 81 10/31/20 07:45 Resp 16 10/31/20 07:45 BP 131/69 10/31/20 07:45 Pulse Ox 97 10/31/20 07:45 Intake & Output 10/30/20 10/31/20 10/31/20 18:59 06:59 18:59 Intake Total 300 700 200 Output Total 300 1025 Balance 0 -325 200 Intake: Intake, IV Titration 400 Amount Sodium Chloride 0.9% 50 400 ml @ 0 mls/hr IV .STK-MED ONE with ceFAZolin 2,000 mg Rx#:[id number] Oral 300 300 200 Output: Urine 300 1025 Other: Voiding Method Indwelling Catheter Indwelling Catheter - Exam Inspection reveals a benign surgical wound. There is no active bleeding or drainage. Neurovascular status is intact throughout the lower extremity with motor and sensation fully intact. Calf is soft and nontender. 2+ dorsalis pedis pulse and less than 2 second cap refill is present. - Constitutional General appearance: Present: no acute distress - Labs CBC & Chem 7: 10/31/20 07:31 10/27/20 19:08 Labs: Abnormal Lab Results - Last 24 Hours (Table) 10/31/20 Range/Units 07:31 RBC 4.10 L (4.30-5.90) m/uL Assessment and Plan (1) Closed right hip fracture Narrative/Plan: He will continue with routine postop orthopedic protocol including pain management, wound care, PT, DVT prophylaxis and medical management. Request for inpatient rehab has been submitted and will expect transfer in next 1-2 days. Current Visit: No Status: Acute Priority: Medium Code(s): S72.001A - F RACTURE OF UNSP PART OF NECK OF RIGHT FEMUR, INIT SNOMED Code(s): 991725975 Time with Patient: Less than 30
[2020-10-31] MEDS: TAMSULOSIN 0.4 MG CAP.ER.24H PO SCH (17:19)
--- NOTE | 2020-10-31 21:23 | P.PN ---
Progress Note - Text Progress Note Date: 10/31/20 - Chief Complaint Hip pain Consultation: This is a pleasant 69-year-old patient was chronic stable medical conditions include osteoarthritis, Parkinson's disease, kidney dysfunction. Patient was seen in Dr. Bergman's office on October 27 of the return to the office for worsening right hip pain. No new injury. He had fallen on October 17 and was having some pain in his right ear. And it was worse with any kind of activity. Most of lifting. Patient was then admitted. Patient does not have any chest pain or shortness of breath. And has a rather limited excess tolerance. No cardiac history. I had treated the patient for surgery earlier. Patient underwent a right hip hemiarthroplasty for displaced right femoral neck fracture. Improving with physical therapy. Parkinson symptoms controlled. Today-stable. Tolerating diet. Pending placement. No new issues. Review of systems: Was done for constitutional, cardiovascular, GI, pulmonary. relevant finding as above Active Medications Acetaminophen (Acetaminophen Tab 325 Mg Tab) 650 mg PO Q4HR PRN PRN Reason: Pain Scale 1 to 5 Hydrocodone Bitart/Acetaminophen (Hydrocodone/Apap 5-325mg 1 Each Tab) 1 each PO Q6HR PRN PRN Reason: Pain Scale 1 to 5 Last Admin: 10/28/20 17:45 Dose: 1 each Documented by: Hydrocodone Bitart/Acetaminophen (Hydrocodone/Apap 10-325mg 1 Each Tab) 1 each PO Q6H PRN PRN Reason: Pain Scale 6 to 10 Amantadine HCl (Amantadine Hcl 100 Mg Cap) 100 mg PO BID [facility] Last Admin: 10/31/20 08:28 Dose: 100 mg Documented by: Aspirin (Aspirin 81 Mg) 162 mg PO DAILY [facility] Last Admin: 10/31/20 08:28 Dose: 162 mg Documented by: Carbidopa/Levodopa (Carbidopa-Levodopa 25-100 Mg 1 Each Tab) 1 each PO DAILY PRN PRN Reason: Parkinsonism Last Admin: 10/31/20 10:29 Dose: 1 each Documented by: Carbidopa/Levodopa (Carbidopa-Levodopa 25-100 Mg 1 Each Tab) 2 each PO TID [facility] Last Admin: 10/31/20 17:19 Dose: 2 each Documented by: Diazepam (Diazepam 5 Mg Tab) 2.5 mg PO Q8HR PRN PRN Reason: Mild Spasms Donepezil HCl (Donepezil 10 Mg Tab) 10 mg PO DAILY [facility] Last Admin: 10/31/20 08:27 Dose: 10 mg Documented by: Entacapone (Entacapone 200 Mg Tab) 200 mg PO TID [facility] Last Admin: 10/31/20 17:19 Dose: 200 mg Documented by: Hydromorphone HCl (Hydromorphone 0.2 Mg/1 Ml Syringe) 0.2 mg IVP Q3HR PRN PRN Reason: Pain Scale 4 to 6 Hydromorphone HCl (Hydromorphone 0.5 Mg/0.5 Ml Syringe) 0.125 mg IVP Q3HR PRN PRN Reason: Pain Scale 1 to 3 Hydromorphone HCl (Hydromorphone 0.5 Mg/0.5 Ml Syringe) 0.5 mg IVP Q3HR PRN PRN Reason: Pain Scale 7 to 10 Magnesium Hydroxide (Magnesium Hydroxide 2,400 Mg/10 Ml Cup) 2,400 mg PO DAILY PRN PRN Reason: Constipation Multivitamins (Multivitamins, Thera 1 Each Tab) 1 each PO DAILY@1200 [facility] Last Admin: 10/31/20 08:28 Dose: 1 each Documented by: Naloxone HCl (Naloxone 0.4 Mg/Ml 1 Ml Vial) 0.2 mg IV Q2M PRN PRN Reason: Opioid Reversal Ondansetron HCl (Ondansetron 4 Mg/2 Ml Vial) 4 mg IVP Q8HR PRN PRN Reason: Nausea And Vomiting Polyethylene Glycol (Polyethylene Glycol 3350 17 Gm Powd.Pack) 17 gm PO DAILY [facility] Last Admin: 10/31/20 08:28 Dose: 17 gm Documented by: Senna/Docusate Sodium (Sennosides-Docusate Sodium 1 Each Tab) 2 each PO HS [facility] Last Admin: 10/30/20 21:58 Dose: Not Given Documented by: Tamsulosin HCl (Tamsulosin 0.4 Mg Cap.Er.24h) 0.4 mg PO W/SUPPER [facility] Last Admin: 10/31/20 17:19 Dose: 0.4 mg Documented by: Temazepam (Temazepam 15 Mg Cap) 15 mg PO HS PRN PRN Reason: Insomnia Tramadol HCl (Tramadol 50 Mg Tab) 50 mg PO Q6HR PRN PRN Reason: Pain Scale 1 to 5 Physical examination: VITAL SIGNS: 97.7, 73, 16, 1 53 x 83, 95% room air GENERAL: Sitting up in a chair, eating EYES: Pupils equal. Conjunctiva normal. NECK: JVD not raised; masses not palpable. HEART: First and second heart sounds are normal; no edema. LUNGS: Respiratory rate normal; clear to auscultation. ABDOMEN: Soft, nontender, liver spleen not palpable, no masses palpable. PSYCH: Able to answer some simple questions. MUSCULAR skeletal: Evidence of OA. Dressing over the right hip NEUROLOGICAL: Bradykinesia and some tremors INVESTIGATIONS, reviewed in the clinical context: October 31: White count 8.9 hemoglobin 13.3 October 30: White count 9.6 hemoglobin 12.6 platelets 192 October 29: White count 10.4 hemoglobin 13.5 White count 12.2 hemoglobin 14.4 platelets 221 potassium 4.3 creatinine 1.04 Chest x-ray film personally reviewed by me-some chronic changes possible fibrotic Assessment: - mechanical right femur neck fracture.-Followed by-right hip hemiarthroplasty. 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 Continue current medication treatment plan. Pending IPD placement Thank you Dr. Bergman
[2020-10-31] MEDS: SENNOSIDES-DOCUSATE SODIUM 1 EACH TAB PO SCH (22:17)
[2020-11-01 07:08] LABS: Basophils % (A) 0 %; Eosinophils # (A) 0.2 k/uL (0-0.7); Eosinophils % (A) 3 %; HCT 36.7 % (39.0-53.0); HGB 12.1 gm/dL (13.0-17.5); Lymphocytes # (A) 0.9 k/uL (1.0-4.8); Lymphocytes % (A) 14 %; MCH 32.1 pg (25.0-35.0); MCHC 32.9 g/dL (31.0-37.0); MCV 97.5 fL (80.0-100.0); Mean Platelet Volume 7.3; Monocytes # (A) 0.5 k/uL (0-1.0); Monocytes % (A) 8 %; Neutrophils # (A) 4.9 k/uL (1.3-7.7); Neutrophils % (A) 73 %; Platelet Count 233 k/uL (150-450); RBC 3.76 m/uL (4.30-5.90); RDW 12.3 % (11.5-15.5); WBC 6.8 k/uL (3.8-10.6)
[2020-11-01 07:51] VITALS: RESP 18
[2020-11-01] MEDS: DONEPEZIL 10 MG TAB PO SCH (08:15)
[2020-11-01] MEDS: MULTIVITAMINS, THERA 1 EACH TAB PO SCH (08:15)
[2020-11-01] MEDS: ENTACAPONE 200 MG TAB PO SCH (08:15)
[2020-11-01] MEDS: CARBIDOPA-LEVODOPA 25-100 MG 1 EACH TAB PO SCH (08:15)
[2020-11-01] MEDS: ASPIRIN 81 MG PO SCH (08:15)
[2020-11-01] MEDS: polyethylene glycoL 3350 17 GM POWD.PACK PO SCH (08:16)
--- NOTE | 2020-11-01 11:31 | P.DS ---
Providers Date of admission: 10/27/20 18:31 Expected date of discharge: 11/01/20 Attending physician: Williams Bergman Consults: 10/27/20 16:39 Consult Physician Stat Consulting Provider: Tha Piedra Consult Reason/Comments: pre op clearance and medical management Do you want consulting provider notified?: Yes 10/30/20 10:12 Consult Physician Stat Consulting Provider: Norbert Loredo Consult Reason/Comments: Evaluate for Inpatient Rehab Do you want consulting provider notified?: Yes Primary care physician: Stated None - Discharge Diagnosis(es) (1) Closed right hip fracture Patient was admitted to the OR on 10/28/2020 to undergo a right hip carlos alberto- arthroplasty for right hip fracture. He desired to proceed with elective surgery after given informed consent. He underwent the above procedure which he tolerated well without complication. Postoperative hospital course has remained without complication. On day of discharge he is afebrile, vital signs stable, la bs within acceptable ranges, tolerating by mouth meds and diet, voiding without difficulty, positive flatus, denies abdominal pain or calf pain, pain is controlled on oral pain medication and has no new complaints. Wound is benign, neurovascular status is intact, calf is soft and nontender, abdomen soft and nontender. Review of systems is negative for numbness, tingling, fever, chills, chest pain, shortness of breath, nausea, vomiting, dizziness, headaches, slurred speech or other. Current Visit: No Status: Acute Priority: Medium Procedures: Right Hip hemiarthroplasty Patient Condition at Discharge: Fair Plan - Discharge Summary Discharge Rx Participant: Yes New Discharge Prescriptions: New Entacapone [Comtan] 200 mg PO TID tab Sennosides-Docusate Sodium [Senokot-S] 2 each PO HS tab Aspirin [Adult Low Dose Aspirin EC] 81 mg PO BID #60 tablet. HYDROcodone/APAP 5-325MG [[place] 5-325] 1 tab PO Q4HR PRN #42 tab PRN Reason: Pain Continue amantadine HCL [Symmetrel] 100 mg PO BID Aspirin 162 mg PO DAILY Tamsulosin HCl [Flomax] 0.4 mg PO W/SUPPER Polyethylene Glycol 3350 [Miralax] 17 gm PO DAILY Donepezil HCl [Aricept] 10 mg PO DAILY Carbidopa/Levodopa/Entacapone [Carbidopa-Levodopa 200 mg-Enta] 1 tab PO TID Carbidopa-Levodopa 25-100 mg [Sinemet 25-100 mg] 1 tab PO DAILY PRN PRN Reason: Parkinsonism Discharge Medication List amantadine HCL [Symmetrel] 100 mg PO BID 12/31/16 [History] Aspirin 162 mg PO DAILY 08/05/19 [History] Carbidopa-Levodopa 25-100 mg [Sinemet 25-100 mg] 1 tab PO DAILY PRN 08/23/20 [History] Carbidopa/Levodopa/Entacapone [Carbidopa-Levodopa 200 mg-Enta] 1 tab PO TID 08/23/20 [History] Donepezil HCl [Aricept] 10 mg PO DAILY 08/23/20 [History] Polyethylene Glycol 3350 [Miralax] 17 gm PO DAILY 08/23/20 [History] Tamsulosin HCl [Flomax] 0.4 mg PO W/SUPPER 08/23/20 [History] Entacapone [Comtan] 200 mg PO TID tab 10/31/20 [Rx] Sennosides-Docusate Sodium [Senokot-S] 2 each PO HS tab 10/31/20 [Rx] Aspirin [Adult Low Dose Aspirin EC] 81 mg PO BID #60 tablet. 11/01/20 [Rx] HYDROcodone/APAP 5-325MG [[place] 5-325] 1 tab PO Q4HR PRN #42 tab 11/01/20 [Rx] Follow up Appointment(s)/Referral(s): [facility] [NON-STAFF] - None,Stated [Primary Care Provider] - 1 Week Williams Bergman MD [STAFF PHYSICIAN] - 11/08/20 1:30 pm Activity/Diet/Wound Care/Special Instructions: Keep wound clean and dry Take meds as directed Follow-up with Dr. Bergman in office Weight bear as tolerated May shower in 3 days if no bleeding No sitting in low chairs or internally rotating right leg Discharge Disposition: TRANSFER TO SNF/ECF
[2020-11-01] MEDS ORDERED: CARBIDOPA-LEVODOPA 25-100 MG 1 EACH TAB PO SCH ×2 (13:00→14:00)
[2020-11-01] MEDS ORDERED: ENTACAPONE 200 MG TAB PO SCH (14:00)
[2020-11-01 14:27] VITALS: BP 137/71; PULSE 73; TEMP 98.8
[2020-11-01] MEDS: HYDROcodone/APAP 5-325MG 1 EACH TAB PO PRN (15:13)
--- NOTE | 2020-11-01 23:02 | P.PN ---
Progress Note - Text Progress Note Date: 11/01/20 - Chief Complaint Hip pain Consultation: This is a pleasant 69-year-old patient was chronic stable medical conditions include osteoarthritis, Parkinson's disease, kidney dysfunction. Patient was seen in Dr. Bergman's office on October 27 of the return to the office for worsening right hip pain. No new injury. He had fallen on October 17 and was having some pain in his right ear. And it was worse with any kind of activity. Most of lifting. Patient was then admitted. Patient does not have any chest pain or shortness of breath. And has a rather limited excess tolerance. No cardiac history. I had treated the patient for surgery earlier. Patient underwent a right hip hemiarthroplasty for displaced right femoral neck fracture. Improving with physical therapy. Parkinson symptoms controlled. Today-sitting up in a chair. Eating well. No new issues. Patient's home medication of Sinemet and Comtan combined medication pill was corrected the home medication and being discharged the same.. Review of systems: Was done for constitutional, cardiovascular, GI, pulmonary. relevant finding as above Current medications reviewed in today's electronic records Physical examination: VITAL SIGNS: 97.8, 69, 18, 147 with 79, 98% room air GENERAL: Sitting up in a chair, eating EYES: Pupils equal. Conjunctiva normal. NECK: JVD not raised; masses not palpable. HEART: First and second heart sounds are normal; no edema. LUNGS: Respiratory rate normal; clear auscultation. ABDOMEN: Soft, nontender, liver spleen not palpable, no masses palpable. PSYCH: Able to answer some simple questions. MUSCULAR skeletal: Evidence of OA. Dressing over the right hip NEUROLOGICAL: Bradykinesia and some tremors INVESTIGATIONS, reviewed in the clinical context: November 01: White count 6.8 hemoglobin 12.1 Coronavirus P/Cr-not detected October 31: White count 8.9 hemoglobin 13.3 October 30: White count 9.6 hemoglobin 12.6 platelets 192 October 29: White count 10.4 hemoglobin 13.5 White count 12.2 hemoglobin 14.4 platelets 221 potassium 4.3 creatinine 1.04 Chest x-ray film personally reviewed by me-some chronic changes possible fibrotic Assessment: - mechanical right femur neck fracture.-Followed by-right hip hemiarthroplasty. 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 Discharge medications reviewed. Stable to go to the ECF. Follow up with PCP upon discharge. Thank you Dr. Bergman
== END 2020-11-01 15:35 | DRG 522 ==
LOC: 4SSUR 18:31
PROVIDERS: ADMIT Orthopaedic Surgery Sports Medicine; ATTEND Orthopaedic Surgery Sports Medicine
PROC: 0SRR0JA Replacement of Right Hip Joint, Femoral Surface with Synthetic Substitute, Uncemented, Open Approach (ICD-10-PCS; principal; 2020-10-28 09:00)
DX: S72.001A Fracture of unspecified part of neck of right femur, initial encounter for closed fracture (principal); G20 Parkinson's disease; W19.XXXA Unspecified fall, initial encounter; Z20.828 Contact with and (suspected) exposure to other viral communicable diseases; M19.91 Primary osteoarthritis, unspecified site; R26.9 Unspecified abnormalities of gait and mobility; R41.89 Other symptoms and signs involving cognitive functions and awareness; N40.0 Benign prostatic hyperplasia without lower urinary tract symptoms; Z98.890 Other specified postprocedural states; Z88.0 Allergy status to penicillin; Z91.030 Bee allergy status; Z79.82 Long term (current) use of aspirin; Z79.899 Other long term (current) drug therapy; Z86.19 Personal history of other infectious and parasitic diseases
CPT/HCPCS: 71045; 73501; 80053; 85025; 85610; 85730; 87635; 88305; 88311; 93005

== ENCOUNTER 2021-01-20 19:30 | Inpatient (IN) | payer MEDICARE ==
[2021-01-20] MEDS ORDERED: SODIUM CHLORIDE 0.9% 1,000 ML IV STA (19:50)
--- NOTE | 2021-01-20 19:54 | ED ---
Male Urogenital HPI - General Chief complaint: Urogenital Stated complaint: Urogenital Time Seen by Provider: 01/20/21 19:42 Source: patient, EMS Mode of arrival: EMS Limitations: no limitations - History of Present Illness Initial comments: 70-year-old male presents to the ER from a [place] here on with for having increased confusion and more falling. Patient had a positive urinalysis on the dipstick therefore was sent in for treatment. Patient states he is more fatigued today however doesn't realize why he is fully here. Patient denies fever nausea no abdominal pain no back pain no change of bowels. admits to Parkinson's. Patient states at times he does fall more than others. Patient has no headache no visual changes - Related Data Home Medications Medication Instructions Recorded Confirmed Aspirin 162 mg PO DAILY 08/05/19 10/27/20 Carbidopa/Levodopa/Entacapone 1 tab PO DIRECTED 08/23/20 11/01/20 [Carbidopa-Levodopa 200 mg-Enta] Donepezil HCl [Aricept] 10 mg PO DAILY 08/23/20 10/27/20 Polyethylene Glycol 3350 [Miralax] 17 gm PO DAILY 08/23/20 10/27/20 Tamsulosin HCl [Flomax] 0.4 mg PO W/SUPPER 08/23/20 10/27/20 Previous Rx's Medication Instructions Recorded Sennosides-Docusate Sodium 2 each PO HS tab 10/31/20 [Senokot-S] Aspirin [Adult Low Dose Aspirin EC] 81 mg PO BID #60 tablet. 11/01/20 HYDROcodone/APAP 5-325MG [[place] 1 tab PO Q4HR PRN #42 tab 11/01/20 5-325] amantadine HCL [Symmetrel] 100 mg PO TID #0 11/01/20 Allergies Allergy/AdvReac Type Severity Reaction Status Date / Time bee pollen Allergy Unknown Verified 10/27/20 20:29 Penicillins AdvReac Diarrhea Verified 10/27/20 20:29 (C-Diff) Review of Systems ROS Statement: Those systems with pertinent positive or pertinent negative responses have been documented in the HPI. ROS Other: All systems not noted in ROS Statement are negative. Constitutional: Denies: fever, chills Gastrointestinal: Denies: abdominal pain, nausea, vomiting, diarrhea Skin: Denies: rash Neurological: Reports: confusion, abnormal gait Past Medical History Past Medical History: Musculoskeletal Disorder Additional Past Medical History / Comment(s): Parkinson's History of Any Multi-Drug Resistant Organisms: C-DIFF Date of last positivie culture/infection: 12/10/2016 MDRO Source:: "marginal" c-diff, pt states this is "all gone" Past Surgical History: Orthopedic Surgery Additional Past Surgical History / Comment(s): right knee sx, back sx, neck surgery Past Psychological History: No Psychological Hx Reported Smoking Status: Never smoker Past Alcohol Use History: Occasional Past Drug Use History: None Reported General Exam Limitations: no limitations General appearance: in no apparent distress, lethargic Head exam: Present: atraumatic, normocephalic, normal inspection Eye exam: Present: normal appearance, PERRL, EOMI. Absent: scleral icterus, conjunctival injection, periorbital swelling ENT exam: Present: normal exam, mucous membranes moist Respiratory exam: Present: normal lung sounds bilaterally. Absent: respiratory distress, wheezes, rales, rhonchi, stridor Cardiovascular Exam: Present: regular rate, normal rhythm, normal heart sounds. Absent: systolic murmur, diastolic murmur, rubs, gallop, clicks GI/Abdominal exam: Present: soft, normal bowel sounds. Absent: distended, tenderness, guarding, rebound, rigid Neurological exam: Present: alert. Absent: oriented X3, normal gait, motor sensory deficit Psychiatric exam: Present: normal affect, normal mood Skin exam: Present: warm, dry, intact, normal color. Absent: rash Course Vital Signs 01/20/21 01/20/21 19:38 21:35 Temperature 97.1 F L 97.5 F L Pulse Rate 70 68 Respiratory 16 16 Rate Blood Pressure 112/64 145/73 O2 Sat by Pulse 99 98 Oximetry Medical Decision Making - Medical Decision Making Patient has confusion and very fatigued during exam. Patient does answer appropriately. was there for part of the exam and answered a lot of questions. Patient found to have a urinary tract infection we'll start IV antibiotic be admitted to Dr. mackay discussed with Dr. Andrzej Quintana. - Lab Data Result diagrams: 01/20/21 20:30 01/20/21 20:30 Lab Results 01/20/21 01/20/21 01/20/21 Range/Units 20:30 20:30 20:30 WBC 8.8 (3.8-10.6) k/uL RBC 4.22 L (4.30-5.90) m/uL Hgb 13.0 (13.0-17.5) gm/dL Hct 38.9 L (39.0-53.0) % MCV 92.3 (80.0-100.0) fL MCH 30.9 (25.0-35.0) pg MCHC 33.4 (31.0-37.0) g/dL RDW 13.3 (11.5-15.5) % Plt Count 172 (150-450) k/uL MPV 7.5 Neutrophils % 76 % Lymphocytes % 12 % Monocytes % 7 % Eosinophils % 2 % Basophils % 0 % Neutrophils # 6.7 (1.3-7.7) k/uL Lymphocytes # 1.1 (1.0-4.8) k/uL Monocytes # 0.7 (0-1.0) k/uL Eosinophils # 0.2 (0-0.7) k/uL Basophils # 0.0 (0-0.2) k/uL Sodium 134 L (137-145) mmol/L Potassium 4.4 (3.5-5.1) mmol/L Chloride 101 (98-107) mmol/L Carbon Dioxide 27 (22-30) mmol/L Anion Gap 6 mmol/L BUN 24 H (9-20) mg/dL Creatinine 0.75 (0.66-1.25) mg/dL Est GFR (CKD-EPI)AfAm >90 (>60 ml/min/1.73 sqM) Est GFR (CKD-EPI)NonAf >90 (>60 ml/min/1.73 sqM) Glucose 82 (74-99) mg/dL Plasma Lactic Acid [place] 1.4 (0.7-2.0) mmol/L Calcium 8.6 (8.4-10.2) mg/dL Magnesium 1.9 (1.6-2.3) mg/dL Total Bilirubin 1.4 H (0.2-1.3) mg/dL AST 24 (17-59) U/L ALT <6 (4-49) U/L Alkaline Phosphatase 118 (38-126) U/L Total Protein 6.5 (6.3-8.2) g/dL Albumin 3.6 (3.5-5.0) g/dL Urine Color Urine Appearance (Clear) Urine pH (5.0-8.0) Ur Specific [place] (1.001-1.035) Urine Protein (Negative) Urine Glucose (UA) (Negative) Urine Ketones (Negative) Urine Blood (Negative) Urine Nitrite (Negative) Urine Bilirubin (Negative) Urine Urobilinogen (<2.0) mg/dL Ur Leukocyte Esterase (Negative) Urine RBC (0-5) /hpf Urine WBC (0-5) /hpf Ur Squamous Epith Cells (0-4) /hpf Urine Bacteria (None) /hpf Urine Mucus (None) /hpf 01/20/21 Range/Units 20:38 WBC (3.8-10.6) k/uL RBC (4.30-5.90) m/uL Hgb (13.0-17.5) gm/dL Hct (39.0-53.0) % MCV (80.0-100.0) fL MCH (25.0-35.0) pg MCHC (31.0-37.0) g/dL RDW (11.5-15.5) % Plt Count (150-450) k/uL MPV Neutrophils % % Lymphocytes % % Monocytes % % Eosinophils % % Basophils % % Neutrophils # (1.3-7.7) k/uL Lymphocytes # (1.0-4.8) k/uL Monocytes # (0-1.0) k/uL Eosinophils # (0-0.7) k/uL Basophils # (0-0.2) k/uL Sodium (137-145) mmol/L Potassium (3.5-5.1) mmol/L Chloride (98-107) mmol/L Carbon Dioxide (22-30) mmol/L Anion Gap mmol/L BUN (9-20) mg/dL Creatinine (0.66-1.25) mg/dL Est GFR (CKD-EPI)AfAm (>60 ml/min/1.73 sqM) Est GFR (CKD-EPI)NonAf (>60 ml/min/1.73 sqM) Glucose (74-99) mg/dL Plasma Lactic Acid [place] (0.7-2.0) mmol/L Calcium (8.4-10.2) mg/dL Magnesium (1.6-2.3) mg/dL Total Bilirubin (0.2-1.3) mg/dL AST (17-59) U/L ALT (4-49) U/L Alkaline Phosphatase (38-126) U/L Total Protein (6.3-8.2) g/dL Albumin (3.5-5.0) g/dL Urine Color Dark [place] Urine Appearance Cloudy (Clear) Urine pH 6.0 (5.0-8.0) Ur Specific [place] 1.029 (1.001-1.035) Urine Protein 1+ H (Negative) Urine Glucose (UA) Negative (Negative) Urine Ketones Trace H (Negative) Urine Blood Large H (Negative) Urine Nitrite Positive (Negative) Urine Bilirubin Negative (Negative) Urine Urobilinogen <2.0 (<2.0) mg/dL Ur Leukocyte Esterase Moderate H (Negative) Urine RBC >182 H (0-5) /hpf Urine WBC 152 H (0-5) /hpf Ur Squamous Epith Cells 1 (0-4) /hpf Urine Bacteria Many H (None) /hpf Urine Mucus Many H (None) /hpf Disposition Clinical Impression: UTI (urinary tract infection), Confusion Disposition: ADMITTED IP TO THIS HOSP Condition: Fair Instructions (If sedation given, give patient instructions): Urinary Tract Infection in Men (ED) Is patient prescribed a controlled substance at d/c from ED?: No Referrals: Boogie Chirinos MD [Primary Care Provider] - 1-2 days
--- NOTE | 2021-01-20 20:57 | XR ---
EXAMINATION TYPE: XR chest 2V DATE OF EXAM: 01/20/2021 COMPARISON: 10/28/2020 HISTORY: Weakness TECHNIQUE: FINDINGS: There is no heart failure nor confluent pneumonic infiltrate. Heart size is normal. Costoph renic angles are clear. There are no hilar masses. Bony thorax is intact. IMPRESSION: No active cardiopulmonary disease. Normal heart. No change.
[2021-01-20 21:06] LABS: Basophils % (A) 0 %; Eosinophils # (A) 0.2 k/uL (0-0.7); Eosinophils % (A) 2 %; HCT 38.9 % (39.0-53.0); Lymphocytes # (A) 1.1 k/uL (1.0-4.8); Lymphocytes % (A) 12 %; MCH 30.9 pg (25.0-35.0); MCHC 33.4 g/dL (31.0-37.0); MCV 92.3 fL (80.0-100.0); Mean Platelet Volume 7.5; Monocytes # (A) 0.7 k/uL (0-1.0); Monocytes % (A) 7 %; Neutrophils # (A) 6.7 k/uL (1.3-7.7); Neutrophils % (A) 76 %; Platelet Count 172 k/uL (150-450); RBC 4.22 m/uL (4.30-5.90); RDW 13.3 % (11.5-15.5); WBC 8.8 k/uL (3.8-10.6)
[2021-01-20 21:11] LABS: Appearance,Urine Cloudy (Clear); Bacteria,Urine Many /hpf; Bilirubin,Urine Negative (Negative); Blood,Urine Large (Negative); Color,Urine Dark Orange; Glucose,Urine (UA) Negative (Negative); Ketones,Urine Trace (Negative); Leukocyte Esterase,Urine Moderate (Negative); Mucus,Urine Many /hpf; Nitrite,Urine Positive (Negative); Protein,Urine 1+ (Negative); RBC,Urine >182 /hpf (0-5); Specific Gravity,Urine 1.029 (1.001-1.035); Squamous Epithelial Cell,Urine 1 /hpf (0-4); Urobilinogen,Urine <2.0 mg/dL (<2.0); WBC,Urine 152 /hpf (0-5)
[2021-01-20 21:30] LABS: ALT <6 U/L (4-49); African American GFR (CKD) >90 (>60 ml/min/1.73 sqM); Anion Gap 6 mmol/L; Blood Urea Nitrogen 24 mg/dL (9-20); Calcium 8.6 mg/dL (8.4-10.2); Carbon Dioxide 27 mmol/L (22-30); Chloride 101 mmol/L (98-107); Glucose 82 mg/dL (74-99); Non-African American GFR(CKD) >90 (>60 ml/min/1.73 sqM); Sodium 134 mmol/L (137-145); Total Bilirubin 1.4 mg/dL (0.2-1.3)
--- NOTE | 2021-01-20 21:35 | CT ---
EXAMINATION TYPE: CT brain cspine wo con DATE OF EXAM: 01/20/2021 COMPARISON: 08/05/2019 HISTORY: ams CT DLP: 3266.6 mGycm Automated exposure control for dose reduction was used. There is cerebral cortical atrophy. There is no mass effect nor midline shift. There is no sign of in tracranial hemorrhage. The calvarium is intact. There is laminectomy defect at multiple levels of the cervical spine. There is disc space narrowing a nd apparent previous anterior fusion surgery at C3-4 C5-6 and C6-7. There is slight anterior subluxat ion of C7 in relation to T1. I see no cervical spine acute fracture. There is posterior fusion surger y from C4 to C7 fixing the C6 vertebral body fracture evident on the old exam. IMPRESSION: Mild cerebral atrophy. No acute intracranial abnormality. Brain unchanged. Previous cervical spine surgery. No acute fracture seen. There is mild C7-T1 subluxation unchanged an d consistent with degenerative phenomenon..
[2021-01-20 21:58] LABS: AST 24 U/L (17-59); Albumin 3.6 g/dL (3.5-5.0); Magnesium 1.9 mg/dL (1.6-2.3); Potassium 4.4 mmol/L (3.5-5.1); Total Protein 6.5 g/dL (6.3-8.2)
[2021-01-20 21:59] LABS: Alkaline Phosphatase 118 U/L (38-126)
[2021-01-20] MEDS ORDERED: cefTRIAXone 1,000 GM in SODIUM CHLORIDE 0.9% 50 ML IVPB ONE (22:30)
[2021-01-20] MEDS ORDERED: cefTRIAXone IN SWFI 1,000 MG/10 ML SYRINGE IVP STA (22:50)
[2021-01-20] MEDS ORDERED: NALOXONE 0.4 MG/ML 1 ML VIAL IV PRN (22:58)
[2021-01-20] MEDS: SODIUM CHLORIDE 0.9% 1,000 ML IV SCH (23:25)
[2021-01-21] MEDS: CARBIDOPA-LEVODOPA 25-100 MG 1 EACH TAB PO SCH ×4 (01:09→16:40)
[2021-01-21] MEDS: ENTACAPONE 200 MG TAB PO SCH ×4 (01:10→16:41)
[2021-01-21 04:52] LABS: Basophils % (A) 0 %; Eosinophils # (A) 0.2 k/uL (0-0.7); Eosinophils % (A) 2 %; HCT 38.4 % (39.0-53.0); HGB 12.7 gm/dL (13.0-17.5); Lymphocytes # (A) 0.7 k/uL (1.0-4.8); Lymphocytes % (A) 10 %; MCHC 33.1 g/dL (31.0-37.0); MCV 93.6 fL (80.0-100.0); Mean Platelet Volume 7.2; Monocytes # (A) 0.7 k/uL (0-1.0); Monocytes % (A) 8 %; Neutrophils # (A) 5.9 k/uL (1.3-7.7); Neutrophils % (A) 77 %; Platelet Count 139 k/uL (150-450); RDW 13.2 % (11.5-15.5); WBC 7.7 k/uL (3.8-10.6)
[2021-01-21 05:08] LABS: African American GFR (CKD) >90 (>60 ml/min/1.73 sqM); Anion Gap 7 mmol/L; Blood Urea Nitrogen 18 mg/dL (9-20); Calcium 8.2 mg/dL (8.4-10.2); Carbon Dioxide 24 mmol/L (22-30); Chloride 104 mmol/L (98-107); Glucose 85 mg/dL (74-99); Non-African American GFR(CKD) >90 (>60 ml/min/1.73 sqM); Sodium 135 mmol/L (137-145)
[2021-01-21] MEDS ORDERED: NON FORMULARY DRUG (Aspirin [Adult Low Dose Aspirin Ec] 81 MG Tablet.Dr) PO SCH (08:00)
[2021-01-21] MEDS: ASPIRIN 81 MG PO SCH (09:57)
[2021-01-21] MEDS ORDERED: polyethylene glycoL 3350 17 GM POWD.PACK PO PRN (10:38)
[2021-01-21] MEDS ORDERED: SENNOSIDES 8.6 MG TAB PO PRN (10:38)
[2021-01-21] MEDS: TAMSULOSIN 0.4 MG CAP.ER.24H PO SCH (12:22)
[2021-01-21] MEDS: SODIUM CHLORIDE 0.9% 1,000 ML IV SCH (19:36)
--- NOTE | 2021-01-21 19:39 | P.HPIM ---
History of Present Illness H&P Date: 01/21/21 Chief Complaint: Increasing confusion History of presenting complaint: This is a pleasant 70-year-old patient was chronic stable medical conditions include osteoarthritis, Parkinson's disease, kidney dysfunction. Patient is brought in by the EMS. Patient does told the EMS that patient been having more difficulty in walking for the [place] because so in patient with a small wart of blood diseases urine today. Dipstick was positive for an active UTI. Patient been having frequent urination. He has Parkinson's disease and is activity has been getting worse. He's been requiring more assistance because of weakness and unstable while walking. Patient himself is not able to give much of her history. He knows that is the hospital. Not sure exactly why he is here. Slow to answer questions. Review of systems: GEN.: Tired EYES: None HEENT: None NECK: None RESPIRATORY: None CARDIOVASCULAR: None GASTROINTESTINAL: None GENITOURINARY: None MUSCULOSKELETAL: Joint pains LYMPHATICS: None HEMATOLOGICAL: None PSYCHIATRY: Forgetful NEUROLOGICAL: Tremors. Past medical history to include: Osteoarthritis, Parkinson, gait dysfunction, BPH, cognitive impairment Social history: No history of smoking. Alcohol occasional. Physical examination: VITAL SIGNS: 97.1, 70, 16, 112 x 64, 99% room air GENERAL: BMI 27.7, sitting up on the bed, eating slowly EYES: Pupils equal. Conjunctiva normal. HEENT: External appearance of nose and ears normal, oral cavity grossly normal. NECK: JVD not raised; masses not palpable. HEART: First and second heart sounds are normal; no edema. LUNGS: Respiratory rate normal; clear to auscultation. ABDOMEN: Soft, nontender, liver spleen not palpable, no masses palpable. PSYCH: Able to answer occasional question. He knows that he is in the hospital. Does not know the month of the year.. MUSCULAR skeletal: Evidence of OA. NEUROLOGICAL: [Cranial nerves grossly intact; slow movements and some tremors . Slow speech LYMPHATICS: No lymph nodes palpable in the axilla and neck INVESTIGATIONS, reviewed in the clinical context: WBC 7.7 hemoglobin 12.7 platelets 139 potassium 4 creatinine 0.67 UA positive for blood, leukoesterase, WBC, bacteria Coronavirus [PCR]-not detected Assessment and plan: - acute on chronic medical debility worsening from underlying Parkinson's disease secondary to acute UTI. PTOT -Acute UTI with cystitis. Start patient on IV ceftriaxone -Primary osteoarthritis, use Tylenol when necessary -Idiopathic Parkinson disorder, with acute deterioration due to underlying UTI. Continue with Sinemet and Comtan -Chronic gait dysfunction -Cognitive impairment from Parkinson disease, -Possible acute delirium from underlying infection -Bladder outflow obstruction continue with Flomax -DVT prophylaxis, subcu Lovenox Patient will need at least 2 nights stay in the hospital. Given the severity of his condition. Past Medical History Past Medical History: Musculoskeletal Disorder Additional Past Medical History / Comment(s): Parkinson's History of Any Multi-Drug Resistant Organisms: C-DIFF Date of last positivie culture/infection: 12/10/2016 MDRO Source:: "marginal" c-diff, pt states this is "all gone" Past Surgical History: Orthopedic Surgery Additional Past Surgical History / Comment(s): right knee sx, back sx, neck surgery Past Psychological History: No Psychological Hx Reported Smoking Status: Never smoker Past Alcohol Use History: Occasional Past Drug Use History: None Reported Medications and Allergies Home Medications Medication Instructions Recorded Confirmed Type Carbidopa/Levodopa/Entacapone 1 tab PO TID@0800,1200,1600 08/23/20 01/20/21 History [Carbidopa-Levodopa 200 mg-Enta] Polyethylene Glycol 3350 [Miralax] 17 gm PO DAILY PRN 08/23/20 01/20/21 History Tamsulosin HCl [Flomax] 0.4 mg PO DAILY@0800 08/23/20 01/20/21 History Aspirin [Adult Low Dose Aspirin EC] 81 mg PO DAILY@0800 01/20/21 01/20/21 History Carbidopa-Levodopa 25-100 mg 1 tab PO TID@0800,1200,1600 01/20/21 01/20/21 History [Sinemet 25-100 mg] Donepezil [Aricept] 10 mg PO DAILY@199901/20/21 01/20/21 History Ibuprofen 400 mg PO DIRECTED 01/20/21 01/20/21 History Ibuprofen [Advil] 200 - 400 mg PO DAILY PRN 01/20/21 01/20/21 History Sennosides [Senna] 16.2 mg PO DAILY PRN 01/20/21 01/20/21 History amantadine HCL [Amantadine] 100 mg PO DAILY@0800 01/20/21 01/20/21 History Allergies Allergy/AdvReac Type Severity Reaction Status Date / Time bee pollen Allergy Unknown Verified 01/20/21 23:19 Penicillins AdvReac Diarrhea Verified 01/20/21 23:19 (C-Diff) Physical Exam Vitals: Vital Signs Temp Pulse Resp BP Pulse Ox 01/21/21 06:26 97.8 F 67 18 137/73 96 01/21/21 02:00 65 16 128/64 96 01/21/21 01:13 78 16 120/72 97 01/20/21 23:30 72 16 134/70 98 01/20/21 21:35 97.5 F L 68 16 145/73 98 01/20/21 19:38 97.1 F L 70 16 112/64 99 Intake and Output 01/20/21 01/21/21 01/21/21 22:59 06:59 14:59 Other: Weight 108.862 kg Results CBC & Chem 7: 01/21/21 04:06 01/21/21 04:06 Labs: Abnormal Lab Results - Last 24 Hours (Table) 01/20/21 01/20/21 01/20/21 Range/Units 20:30 20:30 20:38 RBC 4.22 L (4.30-5.90) m/uL Hgb (13.0-17.5) gm/dL Hct 38.9 L (39.0-53.0) % Plt Count (150-450) k/uL Lymphocytes # (1.0-4.8) k/uL Sodium 134 L (137-145) mmol/L BUN 24 H (9-20) mg/dL Calcium (8.4-10.2) mg/dL Total Bilirubin 1.4 H (0.2-1.3) mg/dL Urine Protein 1+ H (Negative) Urine Ketones Trace H (Negative) Urine Blood Large H (Negative) Ur Leukocyte Esterase Moderate H (Negative) Urine RBC >182 H (0-5) /hpf Urine WBC 152 H (0-5) /hpf Urine Bacteria Many H (None) /hpf Urine Mucus Many H (None) /hpf 01/21/21 01/21/21 Range/Units 04:06 04:06 RBC 4.10 L (4.30-5.90) m/uL Hgb 12.7 L (13.0-17.5) gm/dL Hct 38.4 L (39.0-53.0) % Plt Count 139 L (150-450) k/uL Lymphocytes # 0.7 L (1.0-4.8) k/uL Sodium 135 L (137-145) mmol/L BUN (9-20) mg/dL Calcium 8.2 L (8.4-10.2) mg/dL Total Bilirubin (0.2-1.3) mg/dL Urine Protein (Negative) Urine Ketones (Negative) Urine Blood (Negative) Ur Leukocyte Esterase (Negative) Urine RBC (0-5) /hpf Urine WBC (0-5) /hpf Urine Bacteria (None) /hpf Urine Mucus (None) /hpf Microbiology - Last 24 Hours (Table) 01/20/21 20:30 Blood Culture Gram Stain - Preliminary Blood 01/20/21 20:30 Blood Culture - Final Blood
[2021-01-21] MEDS: DONEPEZIL 10 MG TAB PO SCH (20:44)
[2021-01-21] MEDS: ENOXAPARIN 40 MG/0.4 ML SYRINGE SQ SCH (20:44)
[2021-01-21] MEDS ORDERED: LORazepam 2 MG/ML INJ IV PRN (22:46)
[2021-01-22] MEDS ORDERED: HALOPERIDOL LACTATE 5 MG/ML 1 ML VIAL IM ONE (00:59)
[2021-01-22] MEDS: CARBIDOPA-LEVODOPA 25-100 MG 1 EACH TAB PO SCH ×3 (08:41→17:44)
[2021-01-22] MEDS: TAMSULOSIN 0.4 MG CAP.ER.24H PO SCH (08:41)
[2021-01-22] MEDS: ASPIRIN 81 MG PO SCH (08:41)
[2021-01-22] MEDS: ENTACAPONE 200 MG TAB PO SCH ×3 (08:42→17:44)
[2021-01-22] MEDS: ENOXAPARIN 40 MG/0.4 ML SYRINGE SQ SCH (08:42)
[2021-01-22] MEDS: SODIUM CHLORIDE 0.9% 1,000 ML IV SCH (17:47)
[2021-01-22] MEDS: DONEPEZIL 10 MG TAB PO SCH (20:17)
--- NOTE | 2021-01-22 22:48 | P.PN ---
Progress Note - Text Progress Note Date: 01/22/21 Chief Complaint: Increasing confusion History of presenting complaint: This is a pleasant 70-year-old patient was chronic stable medical conditions include osteoarthritis, Parkinson's disease, kidney dysfunction. Patient is brought in by the EMS. Patient does told the EMS that patient been having more difficulty in walking for the [place] because so in patient with a small wart of blood diseases urine today. Dipstick was positive for an active UTI. Patient been having frequent urination. He has Parkinson's disease and is activity has been getting worse. He's been requiring more assistance because of weakness and unstable while walking. Patient himself is not able to give much of her history. He knows that is the hospital. Not sure exactly why he is here. Slow to answer questions. Admitted with acute UTI with cystitis. Worsening Parkinson disorder from the same. Today-had some acute delirium last night with worsening. Better this morning. Oral intake improving Review of systems: Was done for constitutional, cardiovascular, GI, pulmonary. relevant finding as above Active Medications Amantadine HCl (Amantadine Hcl 100 Mg Cap) 100 mg PO DAILY [facility] Last Admin: 01/22/21 08:41 Dose: 100 mg Documented by: Aspirin (Aspirin 81 Mg) 81 mg PO DAILY [facility] Last Admin: 01/22/21 08:41 Dose: 81 mg Documented by: Carbidopa/Levodopa (Carbidopa-Levodopa 25-100 Mg 1 Each Tab) 2 each PO TID@0800,1200,1600 [facility] Last Admin: 01/22/21 17:44 Dose: 2 each Documented by: Donepezil HCl (Donepezil 10 Mg Tab) 10 mg PO DAILY@1999 [facility] Last Admin: 01/22/21 20:17 Dose: 10 mg Documented by: Enoxaparin Sodium (Enoxaparin 40 Mg/0.4 Ml Syringe) 40 mg SQ DAILY [facility] Last Admin: 01/22/21 08:42 Dose: 40 mg Documented by: Entacapone (Entacapone 200 Mg Tab) 200 mg PO TID@0800,1200,1600 [facility] Last Admin: 01/22/21 17:44 Dose: 200 mg Documented by: Sodium Chloride (Saline 0.9%) 1,000 mls @ 50 mls/hr IV .Q20H [facility] Last Admin: 01/22/21 17:47 Dose: 50 mls/hr Documented by: Ceftriaxone Sodium 1 gm/ (Sodium Chloride) 50 mls @ 100 mls/hr IVPB Q24HR [facility] Last Admin: 01/22/21 08:42 Dose: 100 mls/hr Documented by: Lorazepam (Lorazepam 2 Mg/Ml Inj) 0.5 mg IV Q6HR PRN PRN Reason: Anxiety Last Admin: 01/21/21 22:57 Dose: 0.5 mg Documented by: Naloxone HCl (Naloxone 0.4 Mg/Ml 1 Ml Vial) 0.2 mg IV Q2M PRN PRN Reason: Opioid Reversal Polyethylene Glycol (Polyethylene Glycol 3350 17 Gm Powd.Pack) 17 gm PO DAILY PRN PRN Reason: Constipation Last Admin: 01/21/21 15:48 Dose: 17 gm Documented by: Senna (Sennosides 8.6 Mg Tab) 16.2 mg PO DAILY PRN PRN Reason: Constipation Tamsulosin HCl (Tamsulosin 0.4 Mg Cap.Er.24h) 0.4 mg PO DAILY@0800 [facility] Last Admin: 01/22/21 08:41 Dose: 0.4 mg Documented by: Past medical history to include: Osteoarthritis, Parkinson, gait dysfunction, BPH, cognitive impairment Social history: No history of smoking. Alcohol occasional. Physical examination: VITAL SIGNS: 97.6, 87, 22, 148.71, 95% room air GENERAL: Sitting up in a chair, tired EYES: Pupils equal. Conjunctiva normal. HEENT: External appearance of nose and ears normal, oral cavity grossly normal. NECK: JVD not raised; masses not palpable. HEART: First and second heart sounds are normal; no edema. LUNGS: Respiratory rate normal; clear to auscultation. ABDOMEN: Soft, nontender, liver spleen not palpable, no masses palpable. PSYCH: Able to answer occasional question. MUSCULAR skeletal: Evidence of OA. NEUROLOGICAL: [Cranial nerves grossly intact; slow movements and some tremors . Slow speech INVESTIGATIONS, reviewed in the clinical context: Urine culture positive for E. coli. Blood culture positive for E. coli. WBC 7.7 hemoglobin 12.7 platelets 139 potassium 4 creatinine 0.67 UA positive for blood, leukoesterase, WBC, bacteria Coronavirus [PCR]-not detected Assessment and plan: - acute on chronic medical debility worsening from underlying Parkinson's disease secondary to acute UTI. PTOT -Acute UTI with cystitis. Start patient on IV ceftriaxone. Both blood and urine culture come back positive for E. coli. -Primary osteoarthritis, use Tylenol when necessary -Idiopathic Parkinson disorder, with acute deterioration due to underlying UTI. Continue with Sinemet and Comtan -Chronic gait dysfunction -Cognitive impairment from Parkinson disease, -Possible acute delirium from underlying infection -Bladder outflow obstruction continue with Flomax -DVT prophylaxis, subcu Lovenox Patient is started respond to ceftriaxone. We'll have the patient and the hospital for another one or 2 nights. Given his age prognosis guarded.
[2021-01-23 06:02] LABS: Basophils % (A) 0 %; Eosinophils # (A) 0.2 k/uL (0-0.7); Eosinophils % (A) 2 %; HCT 42.6 % (39.0-53.0); Lymphocytes # (A) 1.3 k/uL (1.0-4.8); Lymphocytes % (A) 14 %; MCH 30.5 pg (25.0-35.0); MCHC 32.8 g/dL (31.0-37.0); Mean Platelet Volume 7.8; Monocytes # (A) 0.8 k/uL (0-1.0); Monocytes % (A) 8 %; Neutrophils # (A) 6.6 k/uL (1.3-7.7); Neutrophils % (A) 73 %; Platelet Count 239 k/uL (150-450); RBC 4.58 m/uL (4.30-5.90); RDW 13.2 % (11.5-15.5)
[2021-01-23 06:20] LABS: African American GFR (CKD) >90 (>60 ml/min/1.73 sqM); Anion Gap 8 mmol/L; Blood Urea Nitrogen 20 mg/dL (9-20); Calcium 8.9 mg/dL (8.4-10.2); Carbon Dioxide 23 mmol/L (22-30); Chloride 105 mmol/L (98-107); Glucose 104 mg/dL (74-99); Non-African American GFR(CKD) >90 (>60 ml/min/1.73 sqM); Potassium 4.3 mmol/L (3.5-5.1); Sodium 136 mmol/L (137-145)
[2021-01-23] MEDS: ENOXAPARIN 40 MG/0.4 ML SYRINGE SQ SCH (09:48)
[2021-01-23] MEDS: ASPIRIN 81 MG PO SCH (09:48)
[2021-01-23] MEDS: TAMSULOSIN 0.4 MG CAP.ER.24H PO SCH (09:48)
[2021-01-23] MEDS: CARBIDOPA-LEVODOPA 25-100 MG 1 EACH TAB PO SCH ×3 (09:49→15:59)
[2021-01-23] MEDS: ENTACAPONE 200 MG TAB PO SCH ×3 (09:49→16:00)
[2021-01-23] MEDS: SODIUM CHLORIDE 0.9% 1,000 ML IV SCH ×2 (12:37→20:53)
--- NOTE | 2021-01-23 14:03 | CDI ---
Documentation Clarification Form Date: 01/23/2021 01:45:44 PM From: Tracey Marino CCS, CCDS Admit Date: 01/21/2021 07:37:00 PM Patient Name: Dima Norton Visit Number: [id number] Discharge Date: ATTENTION: The Clinical Documentation Specialists (CDI) and [facility] Coding Staff appreciate your assistance in clarifying documentation. Please respond to the clarification below the line at the bottom and electronically sign. The CDI & [facility] Coding staff will review the response and follow-up if needed. Please note: Queries are made part of the Legal Health Record. If you have any questions, please contact the author of this message via ITS. Dr. Tha Piedra: Per the 01/21 History & Physical: Acute on chronic medical debility worsening from underlying Parkinson's disease secondary to acute UTI. Acute UTI with cystitis. Idiopathic Parkinson disorder, with acute deterioration due to underlying UTI. Possible acute delirium from underlying infection. History/Risk Factors: Parkinson's Disease, Primary OA, Chronic Gait Dysfunction, Cognitive Impairment from Parkinson's, Bladder outflow obstruction. Clinical Indicators: Patient presented to the ED via EMS on 01/21 with increasing confusion. "Patient told EMS he has been having more difficulty walking, small amount of blood in urine today. Positive for UTI, frequent urination. He has Parkinson's disease and has been getting worse, requiring more assistance because of weakness and unstable while walking. Patient himself is not able to give much history. He knows that is the hospital, not sure exactly why he is here, slow to answer questions.: ED Clinical Impression: UTI, Confusion 01/20 VS: T 97.1, P 70, R 16, BP 112/64, PO 99 vnm - 98 RA, BMI: 27.4 01/20 LAB: Na 134, BUN 24, Total Bili 1.4 01/20 UA: Dark [place], Cloudy, 1+ Protein, Trace Ketones, Large Blood, Positive Nitrite, Mod Esterase, RBC >182, WBC 152 01/20 Urine cx: Pos E Coli 01/20 COVID Negative 01/20 Imaging: CXR: No active cardiopulmonary disease. CT Brain/C Spine: Mild cerebral atrophy. No acute intracranial abnormality. Brain unchanged. Previous cervical spine surgery. No acute fracture seen. There is mild C7-T1 subluxation unchanged and consistent with degenerative phenomenon. Treatment 01/20: IV fluid 1,000 mls @ 50 mls/hr q20H, IV Rocephin 1,000 mg x1, IV fluid 1,000 mls @ 50 mls/hr q20H 01/21: IV Rocephin 50 mls @ 100 mls/hr q24H, po Aricept, Lovenox sq, IV Ativan 0.5 mg prn 01/22: IM Haldol 5mg prn, PT/OT, Continue Sinemet & Comtan, Flomax, cont IV Rocephin In your professional opinion, can you please clarify the specific type of Encephalopathy, if known? Metabolic Encephalopathy Toxic Encephalopathy Other, please specify Unable to determine (Last Revision: February 2018) Toxic encephalopathy MTDD
[2021-01-23] MEDS: DONEPEZIL 10 MG TAB PO SCH (20:52)
--- NOTE | 2021-01-23 23:59 | P.PN ---
Progress Note - Text Progress Note Date: 01/23/21 Chief Complaint: Increasing confusion History of presenting complaint: This is a pleasant 70-year-old patient was chronic stable medical conditions include osteoarthritis, Parkinson's disease, kidney dysfunction. Patient is brought in by the EMS. Patient does told the EMS that patient been having more difficulty in walking for the [place] because so in patient with a small wart of blood diseases urine today. Dipstick was positive for an active UTI. Patient been having frequent urination. He has Parkinson's disease and is activity has been getting worse. He's been requiring more assistance because of weakness and unstable while walking. Patient himself is not able to give much of her history. He knows that is the hospital. Not sure exactly why he is here. Slow to answer questions. Admitted with acute UTI with cystitis. Worsening Parkinson disorder from the same. Also to acute delirium from the same. Started IV ceftriaxone. Today-doing better today. Sitting up in a chair. Oral intake is improving. No fever. Answering questions slowly Review of systems: Was done for constitutional, cardiovascular, GI, pulmonary. relevant finding as above Active Medications Amantadine HCl (Amantadine Hcl 100 Mg Cap) 100 mg PO TID [facility] Last Admin: 01/23/21 22:29 Dose: 100 mg Documented by: Aspirin (Aspirin 81 Mg) 81 mg PO DAILY [facility] Last Admin: 01/23/21 09:48 Dose: 81 mg Documented by: Carbidopa/Levodopa (Carbidopa-Levodopa 25-100 Mg 1 Each Tab) 2 each PO TID@0800,1200,1600 [facility] Last Admin: 01/23/21 15:59 Dose: Not Given Documented by: Donepezil HCl (Donepezil 10 Mg Tab) 10 mg PO DAILY@1999 [facility] Last Admin: 01/23/21 20:52 Dose: 10 mg Documented by: Enoxaparin Sodium (Enoxaparin 40 Mg/0.4 Ml Syringe) 40 mg SQ DAILY [facility] Last Admin: 01/23/21 09:48 Dose: 40 mg Documented by: Entacapone (Entacapone 200 Mg Tab) 200 mg PO TID@0800,1200,1600 [facility] Last Admin: 01/23/21 16:00 Dose: Not Given Documented by: Sodium Chloride (Saline 0.9%) 1,000 mls @ 50 mls/hr IV .Q20H [facility] Last Admin: 01/23/21 20:53 Dose: 50 mls/hr Documented by: Ceftriaxone Sodium 1 gm/ (Sodium Chloride) 50 mls @ 100 mls/hr IVPB Q24HR [facility] Last Admin: 01/23/21 09:50 Dose: 100 mls/hr Documented by: Lorazepam (Lorazepam 2 Mg/Ml Inj) 0.5 mg IV Q6HR PRN PRN Reason: Anxiety Last Admin: 01/21/21 22:57 Dose: 0.5 mg Documented by: Naloxone HCl (Naloxone 0.4 Mg/Ml 1 Ml Vial) 0.2 mg IV Q2M PRN PRN Reason: Opioid Reversal Polyethylene Glycol (Polyethylene Glycol 3350 17 Gm Powd.Pack) 17 gm PO DAILY PRN PRN Reason: Constipation Last Admin: 01/21/21 15:48 Dose: 17 gm Documented by: Senna (Sennosides 8.6 Mg Tab) 16.2 mg PO DAILY PRN PRN Reason: Constipation Tamsulosin HCl (Tamsulosin 0.4 Mg Cap.Er.24h) 0.4 mg PO DAILY@0800 [facility] Last Admin: 01/23/21 09:48 Dose: 0.4 mg Documented by: Past medical history to include: Osteoarthritis, Parkinson, gait dysfunction, BPH, cognitive impairment Social history: No history of smoking. Alcohol occasional. Physical examination: VITAL SIGNS: 97.6, 92, 20, 1 32 x 70 GENERAL: Sitting up in a chair, tired EYES: Pupils equal. Conjunctiva normal. HEENT: External appearance of nose and ears normal, oral cavity grossly normal. NECK: JVD not raised; masses not palpable. HEART: First and second heart sounds are normal; no edema. LUNGS: Respiratory rate normal; clear to auscultation. ABDOMEN: Soft, nontender, liver spleen not palpable, no masses palpable. PSYCH: Able to answer occasional question. MUSCULAR skeletal: Evidence of OA. NEUROLOGICAL: [Cranial nerves grossly intact; slow movements and some tremors . Pain drooling. Slow speech INVESTIGATIONS, reviewed in the clinical context: January 23: WBC 9 hemoglobin 14 potassium 4.3 creatinine 0.69 pro-calcitonin 0.19 Urine culture positive for E. coli. Blood culture positive for E. coli. From January 20. WBC 7.7 hemoglobin 12.7 platelets 139 potassium 4 creatinine 0.67 UA positive for blood, leukoesterase, WBC, bacteria Coronavirus [PCR]-not detected Assessment and plan: - acute on chronic medical debility worsening from underlying Parkinson's disease secondary to acute UTI. PTOT -Acute UTI with cystitis. IV ceftriaxone. Both blood and urine culture come back positive for E. coli. -Primary osteoarthritis, use Tylenol when necessary -Idiopathic Parkinson disorder, with acute deterioration due to underlying UTI. Continue with Sinemet and Comtan -Chronic gait dysfunction -Cognitive impairment from Parkinson disease, -Possible acute delirium from underlying infection -Bladder outflow obstruction continue with Flomax -DVT prophylaxis, subcu Lovenox Continue with IV ceftriaxone. Probably another one or 2 days in the hospital.
[2021-01-24] MEDS: ENTACAPONE 200 MG TAB PO SCH ×3 (08:35→16:13)
[2021-01-24] MEDS: TAMSULOSIN 0.4 MG CAP.ER.24H PO SCH (08:35)
[2021-01-24] MEDS: ASPIRIN 81 MG PO SCH (08:36)
[2021-01-24] MEDS: ENOXAPARIN 40 MG/0.4 ML SYRINGE SQ SCH (08:36)
[2021-01-24] MEDS: CARBIDOPA-LEVODOPA 25-100 MG 1 EACH TAB PO SCH ×3 (09:27→16:13)
[2021-01-24] MEDS: DONEPEZIL 10 MG TAB PO SCH (20:40)
--- NOTE | 2021-01-24 22:31 | P.PN ---
Progress Note - Text Progress Note Date: 01/24/21 Chief Complaint: Increasing confusion History of presenting complaint: This is a pleasant 70-year-old patient was chronic stable medical conditions include osteoarthritis, Parkinson's disease, kidney dysfunction. Patient is brought in by the EMS. Patient does told the EMS that patient been having more difficulty in walking for the [place] because so in patient with a small wart of blood diseases urine today. Dipstick was positive for an active UTI. Patient been having frequent urination. He has Parkinson's disease and is activity has been getting worse. He's been requiring more assistance because of weakness and unstable while walking. Patient himself is not able to give much of her history. He knows that is the hospital. Not sure exactly why he is here. Slow to answer questions. Admitted with acute UTI with cystitis. Worsening Parkinson disorder from the same. Also to acute delirium from the same. Started IV ceftriaxone. Blood and urine cultures both positive for E. coli. Today-patient has continued to improve. Sitting up. Eating better. More awake. Did work with therapy. Review of systems: Was done for constitutional, cardiovascular, GI, pulmonary. relevant finding as above Active Medications Amantadine HCl (Amantadine Hcl 100 Mg Cap) 100 mg PO TID [facility] Last Admin: 01/24/21 20:40 Dose: 100 mg Documented by: Aspirin (Aspirin 81 Mg) 81 mg PO DAILY [facility] Last Admin: 01/24/21 08:36 Dose: 81 mg Documented by: Carbidopa/Levodopa (Carbidopa-Levodopa 25-100 Mg 1 Each Tab) 2 each PO TID@0800,1200,1600 [facility] Last Admin: 01/24/21 16:13 Dose: 2 each Documented by: Donepezil HCl (Donepezil 10 Mg Tab) 10 mg PO DAILY@1999 [facility] Last Admin: 01/24/21 20:40 Dose: 10 mg Documented by: Enoxaparin Sodium (Enoxaparin 40 Mg/0.4 Ml Syringe) 40 mg SQ DAILY [facility] Last Admin: 01/24/21 08:36 Dose: 40 mg Documented by: Entacapone (Entacapone 200 Mg Tab) 200 mg PO TID@0800,1200,1600 [facility] Last Admin: 01/24/21 16:13 Dose: 200 mg Documented by: Sodium Chloride (Saline 0.9%) 1,000 mls @ 50 mls/hr IV .Q20H [facility] Last Admin: 01/23/21 20:53 Dose: 50 mls/hr Documented by: Ceftriaxone Sodium 1 gm/ (Sodium Chloride) 50 mls @ 100 mls/hr IVPB Q24HR [facility] Last Admin: 01/24/21 08:36 Dose: 100 mls/hr Documented by: Lorazepam (Lorazepam 2 Mg/Ml Inj) 0.5 mg IV Q6HR PRN PRN Reason: Anxiety Last Admin: 01/21/21 22:57 Dose: 0.5 mg Documented by: Naloxone HCl (Naloxone 0.4 Mg/Ml 1 Ml Vial) 0.2 mg IV Q2M PRN PRN Reason: Opioid Reversal Polyethylene Glycol (Polyethylene Glycol 3350 17 Gm Powd.Pack) 17 gm PO DAILY PRN PRN Reason: Constipation Last Admin: 01/21/21 15:48 Dose: 17 gm Documented by: Senna (Sennosides 8.6 Mg Tab) 16.2 mg PO DAILY PRN PRN Reason: Constipation Tamsulosin HCl (Tamsulosin 0.4 Mg Cap.Er.24h) 0.4 mg PO DAILY@0800 [facility] Last Admin: 01/24/21 08:35 Dose: 0.4 mg Documented by: Past medical history to include: Osteoarthritis, Parkinson, gait dysfunction, BPH, cognitive impairment Social history: No history of smoking. Alcohol occasional. Physical examination: VITAL SIGNS: 97, 75, 16, 101/57, 97% on room air GENERAL: Sitting up in a chair, tired EYES: Pupils equal. Conjunctiva normal. HEENT: External appearance of nose and ears normal, oral cavity grossly normal. NECK: JVD not raised; masses not palpable. HEART: First and second heart sounds are normal; no edema. LUNGS: Respiratory rate normal; clear to auscultation. ABDOMEN: Soft, nontender, liver spleen not palpable, no masses palpable. PSYCH: Able to answer occasional question. MUSCULAR skeletal: Evidence of OA. NEUROLOGICAL: [Cranial nerves grossly intact; slow movements and some tremors . Slow speech INVESTIGATIONS, reviewed in the clinical context: January 23: WBC 9 hemoglobin 14 potassium 4.3 creatinine 0.69 pro-calcitonin 0.19 Urine culture positive for E. coli. Blood culture positive for E. coli. From January 20. WBC 7.7 hemoglobin 12.7 platelets 139 potassium 4 creatinine 0.67 UA positive for blood, leukoesterase, WBC, bacteria Coronavirus [PCR]-not detected Assessment and plan: - acute on chronic medical debility worsening from underlying Parkinson's disease secondary to acute UTI. PTOT -Acute UTI with cystitis. IV ceftriaxone. Both blood and urine culture come back positive for E. coli. -Primary osteoarthritis, use Tylenol when necessary -Idiopathic Parkinson disorder, with acute deterioration due to underlying UTI. Continue with Sinemet and Comtan -Chronic gait dysfunction -Cognitive impairment from Parkinson disease, -Possible acute delirium from underlying infection -Bladder outflow obstruction continue with Flomax -DVT prophylaxis, subcu Lovenox Continue with IV ceftriaxone. Called patient's on the phone. Did speak at length to her. Did explain that patient's dose is rather guarded given his Parkinson's disease. These patients are quite prone to infections. Patient may need inpatient rehab. Depending on how physical therapy dose. He is otherwise at the assisted living with good support. Total time spent about 40 minutes with over 25 minutes of discussion
[2021-01-25] MEDS: SODIUM CHLORIDE 0.9% 1,000 ML IV SCH ×2 (04:54→08:54)
[2021-01-25] MEDS: ENTACAPONE 200 MG TAB PO SCH ×3 (08:55→15:49)
[2021-01-25] MEDS: ENOXAPARIN 40 MG/0.4 ML SYRINGE SQ SCH (08:55)
[2021-01-25] MEDS: ASPIRIN 81 MG PO SCH (08:55)
[2021-01-25] MEDS: CARBIDOPA-LEVODOPA 25-100 MG 1 EACH TAB PO SCH ×5 (08:55→15:49)
[2021-01-25] MEDS: TAMSULOSIN 0.4 MG CAP.ER.24H PO SCH ×2 (08:56→23:58)
[2021-01-25] MEDS: DONEPEZIL 10 MG TAB PO SCH (20:53)
--- NOTE | 2021-01-25 23:29 | P.PN ---
Progress Note - Text Progress Note Date: 01/25/21 Chief Complaint: Increasing confusion History of presenting complaint: This is a pleasant 70-year-old patient was chronic stable medical conditions include osteoarthritis, Parkinson's disease, kidney dysfunction. Patient is brought in by the EMS. Patient does told the EMS that patient been having more difficulty in walking for the [place] because so in patient with a small wart of blood diseases urine today. Dipstick was positive for an active UTI. Patient been having frequent urination. He has Parkinson's disease and is activity has been getting worse. He's been requiring more assistance because of weakness and unstable while walking. Patient himself is not able to give much of her history. He knows that is the hospital. Not sure exactly why he is here. Slow to answer questions. Admitted with acute UTI with cystitis. Worsening Parkinson disorder from the same. Also to acute delirium from the same. Started IV ceftriaxone. Blood and urine cultures both positive for E. coli. Today-sitting up to chair. Oral intake better. Tremors present. Answering questions. Review of systems: Was done for constitutional, cardiovascular, GI, pulmonary. relevant finding as above Active Medications Amantadine HCl (Amantadine Hcl 100 Mg Cap) 100 mg PO TID [facility] Last Admin: 01/25/21 20:54 Dose: 100 mg Documented by: Aspirin (Aspirin 81 Mg) 81 mg PO DAILY [facility] Last Admin: 01/25/21 08:55 Dose: 81 mg Documented by: Carbidopa/Levodopa (Carbidopa-Levodopa 25-100 Mg 1 Each Tab) 2 each PO TID@0800,1200,1600 [facility] Last Admin: 01/25/21 15:49 Dose: 2 each Documented by: Carbidopa/Levodopa (Carbidopa-Levodopa 25-100 Mg 1 Each Tab) 1 each PO TID@0800,1200,1600 [facility] Last Admin: 01/25/21 15:49 Dose: 1 each Documented by: Donepezil HCl (Donepezil 10 Mg Tab) 10 mg PO DAILY@1999 [facility] Last Admin: 01/25/21 20:53 Dose: 10 mg Documented by: Enoxaparin Sodium (Enoxaparin 40 Mg/0.4 Ml Syringe) 40 mg SQ DAILY [facility] Last Admin: 01/25/21 08:55 Dose: 40 mg Documented by: Entacapone (Entacapone 200 Mg Tab) 200 mg PO TID@0800,1200,1600 [facility] Last Admin: 01/25/21 15:49 Dose: 200 mg Documented by: Sodium Chloride (Saline 0.9%) 1,000 mls @ 50 mls/hr IV .Q20H [facility] Last Admin: 01/25/21 08:54 Dose: 50 mls/hr Documented by: Ceftriaxone Sodium 1 gm/ (Sodium Chloride) 50 mls @ 100 mls/hr IVPB Q24HR [facility] Last Admin: 01/25/21 08:56 Dose: 100 mls/hr Documented by: Lorazepam (Lorazepam 2 Mg/Ml Inj) 0.5 mg IV Q6HR PRN PRN Reason: Anxiety Last Admin: 01/21/21 22:57 Dose: 0.5 mg Documented by: Naloxone HCl (Naloxone 0.4 Mg/Ml 1 Ml Vial) 0.2 mg IV Q2M PRN PRN Reason: Opioid Reversal Polyethylene Glycol (Polyethylene Glycol 3350 17 Gm Powd.Pack) 17 gm PO DAILY PRN PRN Reason: Constipation Last Admin: 01/21/21 15:48 Dose: 17 gm Documented by: Senna (Sennosides 8.6 Mg Tab) 16.2 mg PO DAILY PRN PRN Reason: Constipation Tamsulosin HCl (Tamsulosin 0.4 Mg Cap.Er.24h) 0.4 mg PO BID [facility] Past medical history to include: Osteoarthritis, Parkinson, gait dysfunction, BPH, cognitive impairment Social history: No history of smoking. Alcohol occasional. Physical examination: VITAL SIGNS: 97.9, 55, 17, 140s over 65, 98% on room air GENERAL: Sitting up in a chair, awake EYES: Pupils equal. Conjunctiva normal. HEENT: External appearance of nose and ears normal, oral cavity grossly normal. NECK: JVD not raised; masses not palpable. HEART: First and second heart sounds are normal; no edema. LUNGS: Respiratory rate normal; clear to auscultation. ABDOMEN: Soft, nontender, liver spleen not palpable, no masses palpable. PSYCH: Able to answer questions. MUSCULAR skeletal: Evidence of OA. NEUROLOGICAL: [Cranial nerves grossly intact; slow movements and some tremors . Slow speech INVESTIGATIONS, reviewed in the clinical context: January 23: WBC 9 hemoglobin 14 potassium 4.3 creatinine 0.69 pro-calcitonin 0.19 Urine culture positive for E. coli. Blood culture positive for E. coli. From January 20. WBC 7.7 hemoglobin 12.7 platelets 139 potassium 4 creatinine 0.67 UA positive for blood, leukoesterase, WBC, bacteria Coronavirus [PCR]-not detected Assessment and plan: - acute on chronic medical debility worsening from underlying Parkinson's disease secondary to acute UTI. PTOT -Acute UTI with cystitis. IV ceftriaxone. Both blood and urine culture come back positive for E. coli. -Primary osteoarthritis, use Tylenol when necessary -Idiopathic Parkinson disorder, with acute deterioration due to underlying UTI. Continue with Sinemet and Comtan -Chronic gait dysfunction -Cognitive impairment from Parkinson disease, -Possible acute delirium from underlying infection -Bladder outflow obstruction continue with Flomax -DVT prophylaxis, subcu [place] Spoke to the social insurance administrator today. He had spoken to patient's earlier. She does not want the patient to go to inpatient rehab. Patient needs 2 more days of IV antibiotics. This will need to be done here. She could not make arrangements for the same. Also discussed with the patient. Total time spent about 40 minutes with over 25 minutes of discussion
[2021-01-26 06:47] LABS: Basophils % (A) 1 %; Eosinophils # (A) 0.4 k/uL (0-0.7); Eosinophils % (A) 6 %; HCT 38.7 % (39.0-53.0); HGB 12.9 gm/dL (13.0-17.5); Lymphocytes # (A) 1.3 k/uL (1.0-4.8); Lymphocytes % (A) 22 %; MCH 30.7 pg (25.0-35.0); MCHC 33.5 g/dL (31.0-37.0); MCV 91.6 fL (80.0-100.0); Mean Platelet Volume 6.9; Monocytes # (A) 0.4 k/uL (0-1.0); Monocytes % (A) 6 %; Neutrophils # (A) 3.8 k/uL (1.3-7.7); Neutrophils % (A) 63 %; Platelet Count 274 k/uL (150-450); RBC 4.22 m/uL (4.30-5.90); RDW 13.1 % (11.5-15.5)
[2021-01-26 07:01] LABS: Blood Urea Nitrogen 19 mg/dL (9-20); Calcium 8.7 mg/dL (8.4-10.2); Chloride 108 mmol/L (98-107); Glucose 92 mg/dL (74-99); Potassium 4.6 mmol/L (3.5-5.1); Sodium 141 mmol/L (137-145)
[2021-01-26 07:03] LABS: African American GFR (CKD) >90 (>60 ml/min/1.73 sqM); Anion Gap 3 mmol/L; Carbon Dioxide 30 mmol/L (22-30); Non-African American GFR(CKD) >90 (>60 ml/min/1.73 sqM)
[2021-01-26] MEDS: ENOXAPARIN 40 MG/0.4 ML SYRINGE SQ SCH (08:25)
[2021-01-26] MEDS: ASPIRIN 81 MG PO SCH (08:26)
[2021-01-26] MEDS: ENTACAPONE 200 MG TAB PO SCH ×3 (08:26→17:04)
[2021-01-26] MEDS: CARBIDOPA-LEVODOPA 25-100 MG 1 EACH TAB PO SCH ×6 (08:26→17:04)
[2021-01-26] MEDS: TAMSULOSIN 0.4 MG CAP.ER.24H PO SCH ×2 (08:26→21:30)
[2021-01-26 14:01] VITALS: BMI 27.7
--- NOTE | 2021-01-26 15:36 | P.GSCN ---
History of Present Illness Consult date: 01/26/21 History of present illness: 70 yo male with progressive parkinsons was admitted because of increasing difficulty with walking and an apparent uti. He has had problems with incontinence and was found to be in urinary retention For this reason we were consulted. He has grown a pansensitive e coli and is being treated. He was straight cathed for 800 ml last nit. His pvr today was about 650 ml. the history actually dates to last summer. He he has been on Flomax for voiding dysfunction. It has helped to a degree. He still has had some slow stream. His Parkinson's dates to 2000. He fell and had a fractured hip in the late fall early winter. He eventually underwent surgery to correct that. He has had a prolonged postoperative course aggravated by his Parkinson's. He is now on KTM Advance. He came in with the above-mentioned weakness. This hospita lization he has been having slowing stream urgency to the point of leakage. He is not clear as to whether he voided significantly differently after his hip surgery in October. Review of Systems All systems: negative - Constitutional Reports weakness, Denies fever, Denies weight loss - EENT Eyes: denies blurred vision Ears, nose, mouth and throat: Denies dysphagia - Cardiovascular Denies chest pain, Denies shortness of breath - Respiratory Denies cough, Denies 7 - Gastrointestinal Reports as per HPI - Genitourinary Reports as per HPI, Reports incontinence, Reports urinary hesitancy, Denies dysuria, Denies hematuria - Integumentary Denies rash, Denies unusual bruising - Neurological Denies headaches, Denies syncope - Hematologic/Lymphatic Denies easy bleeding, Denies easy bruising Past Medical History Past Medical History: Musculoskeletal Disorder Additional Past Medical History / Comment(s): Parkinson's History of Any Multi-Drug Resistant Organisms: C-DIFF Year Discovered:: 12/10/2016 MDRO Source:: "marginal" c-diff, pt states this is "all gone" Past Surgical History: Orthopedic Surgery Additional Past Surgical History / Comment(s): right knee sx, back sx, neck surgery Past Anesthesia/Blood Transfusion Reactions: No Reported Reaction Past Psychological History: No Psychological Hx Reported Smoking Status: Never smoker Past Alcohol Use History: Occasional Past Drug Use History: None Reported Medications and Allergies Home Medications Medication Instructions Recorded Confirmed Type Carbidopa/Levodopa/Entacapone 1 tab PO TID@0800,1200,1600 08/23/20 01/20/21 History [Carbidopa-Levodopa 200 mg-Enta] Polyethylene Glycol 3350 [Miralax] 17 gm PO DAILY PRN 08/23/20 01/20/21 History Tamsulosin HCl [Flomax] 0.4 mg PO DAILY@0800 08/23/20 01/20/21 History Aspirin [Adult Low Dose Aspirin EC] 81 mg PO DAILY@0800 01/20/21 01/20/21 History Carbidopa-Levodopa 25-100 mg 1 tab PO TID@0800,1200,1600 01/20/21 01/20/21 History [Sinemet 25-100 mg] Donepezil [Aricept] 10 mg PO DAILY@199901/20/21 01/20/21 History Sennosides [Senna] 16.2 mg PO DAILY PRN 01/20/21 01/20/21 History amantadine HCL [Amantadine] 100 mg PO TID #0 01/25/21 01/23/21 Rx cefTRIAXone [Rocephin] 1 gm IVPB Q24HR #2 vial 01/25/21 Rx Allergies Allergy/AdvReac Type Severity Reaction Status Date / Time bee pollen Allergy Unknown Verified 01/20/21 23:19 Penicillins AdvReac Diarrhea Verified 01/20/21 23:19 (C-Diff) Surgical - Exam Vital Signs Temp Pulse Resp BP Pulse Ox 97.1 F L 70 16 112/64 99 01/20/21 19:38 01/20/21 19:38 01/20/21 19:38 01/20/21 19:38 01/20/21 19:38 - General well developed, chronically ill - Eyes PERRL - ENT His speech is slow. no hearing loss - Neck no masses - Respiratory normal expansion - Cardiovascular Rhythm: regular - Abdomen Bladder is palpably full Abdomen: soft, non tender, tender - Genitourinary Normal penis and testicles - Neurologic Per his he is confused however per my interview today he was fine normal sensation - Musculoskeletal normal posture - Psychiatric oriented to time, oriented to person, oriented to place, speech is normal, memory intact Results - Labs 01/26/21 05:51 01/26/21 05:51 Abnormal Lab Results - Last 24 Hours (Table) 01/26/21 01/26/21 Range/Units 05:51 05:51 RBC 4.22 L (4.30-5.90) m/uL Hgb 12.9 L (13.0-17.5) gm/dL Hct 38.7 L (39.0-53.0) % Chloride 108 H (98-107) mmol/L Microbiology - Last 24 Hours (Table) 01/20/21 21:33 Blood Culture - Preliminary Blood No Growth after 120 hours Diabetes panel 01/26/21 Range/Units 05:51 Sodium 141 (137-145) mmol/L Potassium 4.6 (3.5-5.1) mmol/L Chloride 108 H (98-107) mmol/L Carbon Dioxide 30 (22-30) mmol/L BUN 19 (9-20) mg/dL Creatinine 0.72 (0.66-1.25) mg/dL Glucose 92 (74-99) mg/dL Calcium 8.7 (8.4-10.2) mg/dL Calcium panel 01/26/21 Range/Units 05:51 Calcium 8.7 (8.4-10.2) mg/dL Pituitary panel 01/26/21 Range/Units 05:51 Sodium 141 (137-145) mmol/L Potassium 4.6 (3.5-5.1) mmol/L Chloride 108 H (98-107) mmol/L Carbon Dioxide 30 (22-30) mmol/L BUN 19 (9-20) mg/dL Creatinine 0.72 (0.66-1.25) mg/dL Glucose 92 (74-99) mg/dL Calcium 8.7 (8.4-10.2) mg/dL Adrenal panel 01/26/21 Range/Units 05:51 Sodium 141 (137-145) mmol/L Potassium 4.6 (3.5-5.1) mmol/L Chloride 108 H (98-107) mmol/L Carbon Dioxide 30 (22-30) mmol/L BUN 19 (9-20) mg/dL Creatinine 0.72 (0.66-1.25) mg/dL Glucose 92 (74-99) mg/dL Calcium 8.7 (8.4-10.2) mg/dL Assessment and Plan Assessment: Impression: Acute urinary tract infection. Incomplete bladder emptying acute versus chronic. Chronic Parkinson's. Recommendations: The patient is obviously having problems the urine retention. Whether this is acute or chronic is indeterminate. The causes of urine retention including large prostate, Parkinson's, urinary tract infection, immobility. The patient has been on Flomax and it has been reinstituted. I recommend leaving the indwelling catheter until his medical status is stabilized. In the future. The catheter can be removed for a voiding trial but I did wait until he is better medically. If he is unable to urinate then further evaluation including urodynamics and cystoscopy would be required to determine whether he would be a candidate for further intervention. Time with Patient: Greater than 30
[2021-01-26] MEDS: DONEPEZIL 10 MG TAB PO SCH (21:30)
[2021-01-26] MEDS: SODIUM CHLORIDE 0.9% 1,000 ML IV SCH ×2 (21:31)
--- NOTE | 2021-01-26 22:22 | P.PN ---
Progress Note - Text Progress Note Date: 01/26/21 Chief Complaint: Increasing confusion History of presenting complaint: This is a pleasant 70-year-old patient was chronic stable medical conditions include osteoarthritis, Parkinson's disease, kidney dysfunction. Patient is brought in by the EMS. Patient does told the EMS that patient been having more difficulty in walking for the [place] because so in patient with a small wart of blood diseases urine today. Dipstick was positive for an active UTI. Patient been having frequent urination. He has Parkinson's disease and is activity has been getting worse. He's been requiring more assistance because of weakness and unstable while walking. Patient himself is not able to give much of her history. He knows that is the hospital. Not sure exactly why he is here. Slow to answer questions. Admitted with acute UTI with cystitis. Worsening Parkinson disorder from the same. Also to acute delirium Started IV ceftriaxone. Blood and urine cultures both positive for E. coli. does not want the patient to go to the F. Today-improving every day. Oral intake better. Has been working with therapy. Review of systems: Was done for constitutional, cardiovascular, GI, pulmonary. relevant finding as above Active Medications Amantadine HCl (Amantadine Hcl 100 Mg Cap) 100 mg PO TID [facility] Last Admin: 01/26/21 21:30 Dose: 100 mg Documented by: Aspirin (Aspirin 81 Mg) 81 mg PO DAILY [facility] Last Admin: 01/26/21 08:26 Dose: 81 mg Documented by: Carbidopa/Levodopa (Carbidopa-Levodopa 25-100 Mg 1 Each Tab) 2 each PO TID@0800,1200,1600 [facility] Last Admin: 01/26/21 17:04 Dose: 2 each Documented by: Carbidopa/Levodopa (Carbidopa-Levodopa 25-100 Mg 1 Each Tab) 1 each PO TID@0800,1200,1600 [facility] Last Admin: 01/26/21 17:04 Dose: 1 each Documented by: Donepezil HCl (Donepezil 10 Mg Tab) 10 mg PO DAILY@1999 [facility] Last Admin: 01/26/21 21:30 Dose: 10 mg Documented by: Enoxaparin Sodium (Enoxaparin 40 Mg/0.4 Ml Syringe) 40 mg SQ DAILY [facility] Last Admin: 01/26/21 08:25 Dose: 40 mg Documented by: Entacapone (Entacapone 200 Mg Tab) 200 mg PO TID@0800,1200,1600 [facility] Last Admin: 01/26/21 17:04 Dose: 200 mg Documented by: Sodium Chloride (Saline 0.9%) 1,000 mls @ 50 mls/hr IV .Q20H [facility] Last Admin: 01/26/21 21:31 Dose: 50 mls/hr Documented by: Ceftriaxone Sodium 1 gm/ (Sodium Chloride) 50 mls @ 100 mls/hr IVPB Q24HR [facility] Last Admin: 01/26/21 08:26 Dose: 100 mls/hr Documented by: Lorazepam (Lorazepam 2 Mg/Ml Inj) 0.5 mg IV Q6HR PRN PRN Reason: Anxiety Last Admin: 01/21/21 22:57 Dose: 0.5 mg Documented by: Naloxone HCl (Naloxone 0.4 Mg/Ml 1 Ml Vial) 0.2 mg IV Q2M PRN PRN Reason: Opioid Reversal Polyethylene Glycol (Polyethylene Glycol 3350 17 Gm Powd.Pack) 17 gm PO DAILY PRN PRN Reason: Constipation Last Admin: 01/21/21 15:48 Dose: 17 gm Documented by: Senna (Sennosides 8.6 Mg Tab) 16.2 mg PO DAILY PRN PRN Reason: Constipation Tamsulosin HCl (Tamsulosin 0.4 Mg Cap.Er.24h) 0.4 mg PO BID [facility] Last Admin: 01/26/21 21:30 Dose: 0.4 mg Documented by: Past medical history to include: Osteoarthritis, Parkinson, gait dysfunction, BPH, cognitive impairment Social history: No history of smoking. Alcohol occasional. Physical examination: VITAL SIGNS: 97.4, 55, 16, 121/61, 98% room air GENERAL: Sitting up in a chair, awake EYES: Pupils equal. Conjunctiva normal. HEENT: External appearance of nose and ears normal, oral cavity grossly normal. NECK: JVD not raised; masses not palpable. HEART: First and second heart sounds are normal; no edema. LUNGS: Respiratory rate normal; clear to auscultation. ABDOMEN: Soft, nontender, liver spleen not palpable, no masses palpable. PSYCH: Able to answer simple questions. MUSCULAR skeletal: Evidence of OA. NEUROLOGICAL: [Cranial nerves grossly intact; slow movements and some tremors . Slow speech INVESTIGATIONS, reviewed in the clinical context: January 26: WBC 16 globin 12.9 platelets 274 creatinine 0.7 to January 23: WBC 9 hemoglobin 14 potassium 4.3 creatinine 0.69 pro-calcitonin 0.19 Urine culture positive for E. coli. Blood culture positive for E. coli. From January 20. WBC 7.7 hemoglobin 12.7 platelets 139 potassium 4 creatinine 0.67 UA positive for blood, leukoesterase, WBC, bacteria Coronavirus [PCR]-not detected Assessment and plan: - acute on chronic medical debility worsening from underlying Parkinson's disease secondary to acute UTI. PTOT -Acute UTI with cystitis. IV ceftriaxone. Both blood and urine culture come back positive for E. coli. -Primary osteoarthritis, use Tylenol when necessary -Idiopathic Parkinson disorder, with acute deterioration due to underlying UTI. Continue with Sinemet and Comtan -Chronic gait dysfunction -Cognitive impairment from Parkinson disease, -Possible acute delirium from underlying infection -Bladder outflow obstruction continue with Flomax -DVT prophylaxis, subcu Lovenox -Thrombocytopenia. From underlying infection-improving Patient will complete 7 days of ceftriaxone tomorrow. He should be done later able to go back to his assisted living.
[2021-01-27] MEDS: ENTACAPONE 200 MG TAB PO SCH ×2 (08:15→12:34)
[2021-01-27] MEDS: CARBIDOPA-LEVODOPA 25-100 MG 1 EACH TAB PO SCH ×4 (08:15→12:34)
[2021-01-27] MEDS: ENOXAPARIN 40 MG/0.4 ML SYRINGE SQ SCH (08:16)
[2021-01-27] MEDS: ASPIRIN 81 MG PO SCH (08:16)
[2021-01-27] MEDS: TAMSULOSIN 0.4 MG CAP.ER.24H PO SCH (08:16)
--- NOTE | 2021-01-27 10:14 | P.PN ---
Subjective Progress Note Date: 01/27/21 The patient was seen for urine retention and a urinary tract infection. The retention is acute and chronic. He was on Flomax and that was increased to twice daily. The catheters was removed this morning for a voiding trial. If he voids then I would like to see him to check a urine and postvoid residual in the office in a week or so. If he doesn't void then the catheter should go back and then I would see him in the office for further evaluation and potential treatment of his urine retention. Objective - Vital Signs Vital signs: Vital Signs Temp 97.5 F L 01/27/21 04:50 Pulse 57 L 01/27/21 04:50 Resp 18 01/27/21 04:50 BP 149/74 01/27/21 04:50 Pulse Ox 98 01/27/21 04:50 Intake & Output 01/26/21 01/27/21 01/27/21 18:59 06:59 18:59 Intake Total 1959 250 Output Total 2017 1800 Balance -58 -1550 Weight 108.862 kg Intake: IV 600 250 Sodium Chloride 0.9% 1, 600 250 000 ml @ 50 mls/hr IV . Q20H [facility] Rx#:[id number] Intake, IV Titration 50 Amount cefTRIAXone 1 gm In 50 Sodium Chloride 0.9% 50 ml @ 100 mls/hr IVPB Q24HR [facility] Rx#:[id number] Oral 1310 Output: Urine 1350 1800 Post Void Residual 668 Other: Voiding Method Urinal Indwelling Catheter Toilet Diaper # Voids 5 # Bowel Movements 1 - Labs CBC & Chem 7: 01/26/21 05:51 01/26/21 05:51 Labs: Microbiology - Last 24 Hours (Table) 01/20/21 21:33 Blood Culture - Final Blood No Growth after 144 hours
[2021-01-27 11:43] VITALS: BP 117/62; PULSE 50; RESP 16; TEMP 97.9
--- NOTE | 2021-01-28 23:09 | P.DS ---
Providers Date of admission: 01/21/21 19:37 Expected date of discharge: 01/28/21 Attending physician: Tha Piedra Consults: 01/26/21 12:09 Consult Physician Routine Consulting Provider: Gregory Leonard Consult Reason/Comments: Urinary retention Do you want consulting provider notified?: Yes Primary care physician: Boogie Chirinos MD Hospital Course: Chief Complaint: Increasing confusion History of presenting complaint: This is a pleasant 70-year-old patient was chronic stable medical conditions include osteoarthritis, Parkinson's disease, kidney dysfunction. Patient is brought in by the EMS. Patient does told the EMS that patient been having more difficulty in walking for . Dipstick was positive for an active UTI. Patient been having frequent urination. He has Parkinson's disease and is activity has been getting worse. He's been requiring more assistance because of weakness and unstable while walking. Patient himself is not able to give much of her history. He knows that is the hospital. Not sure exactly why he is here. Slow to answer questions. Admitted with acute UTI with cystitis. Worsening Parkinson disorder from the same. Also acute delirium Started IV ceftriaxone. Blood and urine cultures both positive for E. coli. does not want the patient to go to the F. Patient gradually did improve. I spoke to patient's on the phone. Patient has some underlying cognitive impairment. Eventually long-term care at some point. Currently at assisted living. Patient did complete his course of antibiotic. Patient was seen by Dr. Powell for urinary retention. Dose of Flomax was increased. Discussion and discharge planning more than 35 minutes Consultation: Dr. Powell from urology Past medical history to include: Osteoarthritis, Parkinson, gait dysfunction, BPH, cognitive impairment Social history: No history of smoking. Alcohol occasional. Physical examination: VITAL SIGNS: 97.5, 57, 18, 149/74, 98% room air GENERAL: Sitting up in a chair, awake EYES: Pupils equal. Conjunctiva normal. HEENT: External appearance of nose and ears normal, oral cavity grossly normal. NECK: JVD not raised; masses not palpable. HEART: First and second heart sounds are normal; no edema. LUNGS: Respiratory rate normal; clear to auscultation. ABDOMEN: Soft, nontender, liver spleen not palpable, no masses palpable. PSYCH: Able to answer simple questions. MUSCULAR skeletal: Evidence of OA. NEUROLOGICAL: [Cranial nerves grossly intact; slow movements and some tremors . Slow speech INVESTIGATIONS, reviewed in the clinical context: January 26: WBC 16 globin 12.9 platelets 274 creatinine 0.7 to January 23: WBC 9 hemoglobin 14 potassium 4.3 creatinine 0.69 pro-calcitonin 0.19 Urine culture positive for E. coli. Blood culture positive for E. coli. From January 20. WBC 7.7 hemoglobin 12.7 platelets 139 potassium 4 creatinine 0.67 UA positive for blood, leukoesterase, WBC, bacteria Coronavirus [PCR]-not detected Assessment and plan: - acute on chronic medical debility worsening from underlying Parkinson's disease secondary to acute UTI. PTOT -Acute UTI with cystitis. IV ceftriaxone. Both blood and urine culture come back positive for E. coli. Completed course of IV antibiotic -Primary osteoarthritis, use Tylenol when necessary -Idiopathic Parkinson disorder, with acute deterioration due to underlying UTI. Continue with Sinemet and Comtan -Chronic gait dysfunction -Cognitive impairment from Parkinson disease, -Possible acute delirium from underlying infection -Bladder outflow obstruction continue with Flomax. dose increased -DVT prophylaxis, subcu Lovenox -Thrombocytopenia. From underlying infection-improving Disposition: [id number] Plan - Discharge Summary Discharge Rx Participant: Yes New Discharge Prescriptions: Continue Polyethylene Glycol 3350 [Miralax] 17 gm PO DAILY PRN PRN Reason: Constipation Carbidopa/Levodopa/Entacapone [Carbidopa-Levodopa 200 mg-Enta] 1 tab PO TID@0800,1200,1600 Donepezil [Aricept] 10 mg PO DAILY@1999 Carbidopa-Levodopa 25-100 mg [Sinemet 25-100 mg] 1 tab PO TID@0800,1200,1600 Aspirin [Adult Low Dose Aspirin EC] 81 mg PO DAILY@0800 Sennosides [Senna] 16.2 mg PO DAILY PRN PRN Reason: Constipation Changed amantadine HCL [Amantadine] 100 mg PO TID #0 Tamsulosin HCl [Flomax] 0.4 mg PO BID #60 cap Discontinued Ibuprofen 400 mg PO DIRECTED Ibuprofen [Advil] 200 - 400 mg PO DAILY PRN PRN Reason: Fever And/ Or Pain Discharge Medication List Carbidopa/Levodopa/Entacapone [Carbidopa-Levodopa 200 mg-Enta] 1 tab PO TID@0800,1200,1600 08/23/20 [History] Polyethylene Glycol 3350 [Miralax] 17 gm PO DAILY PRN 08/23/20 [History] Aspirin [Adult Low Dose Aspirin EC] 81 mg PO DAILY@0800 01/20/21 [History] Carbidopa-Levodopa 25-100 mg [Sinemet 25-100 mg] 1 tab PO TID@0800,1200,1600 01/20/21 [History] Donepezil [Aricept] 10 mg PO DAILY@199901/20/21 [History] Sennosides [Senna] 16.2 mg PO DAILY PRN 01/20/21 [History] amantadine HCL [Amantadine] 100 mg PO TID #0 01/25/21 [Rx] Tamsulosin HCl [Flomax] 0.4 mg PO BID #60 cap 01/27/21 [Rx] Follow up Appointment(s)/Referral(s): neurologist-dr shira [Other] - 10 Days Boogie Chirinos MD [Primary Care Provider] - 1-2 days Gregory Leonard MD [STAFF PHYSICIAN] - 1 Week Patient Instructions/Handouts: Urinary Tract Infection in Men (ED) Discharge Disposition: HOME SELF-CARE
== END 2021-01-27 15:05 | disposition home or self-care (01) | DRG 689 ==
LOC: EC 19:30 → 5NMEDONC 22:28 → 6NMEDSUR 01-21 14:54 → OBSVTOIN 01-21 19:37 → 5NMEDONC 01-23 21:50
PROVIDERS: ADMIT Hospitalist; ATTEND Hospitalist
DX: N30.00 Acute cystitis without hematuria (principal); G92 Toxic encephalopathy; B96.20 Unspecified Escherichia coli [E. coli] as the cause of diseases classified elsewhere; G20 Parkinson's disease; N40.1 Benign prostatic hyperplasia with lower urinary tract symptoms; N32.0 Bladder-neck obstruction; R53.81 Other malaise; R41.89 Other symptoms and signs involving cognitive functions and awareness; M19.91 Primary osteoarthritis, unspecified site; N28.9 Disorder of kidney and ureter, unspecified; R33.8 Other retention of urine; Z20.822 Contact with and (suspected) exposure to COVID-19; R26.89 Other abnormalities of gait and mobility; Z88.0 Allergy status to penicillin; Z91.030 Bee allergy status; Z79.82 Long term (current) use of aspirin; Z79.899 Other long term (current) drug therapy; Z86.19 Personal history of other infectious and parasitic diseases
CPT/HCPCS: 36415; 70450; 71046; 72125; 80048; 80053; 81001; 83605; 83735; 84145; 85025; 87040; 87077; 87086; 87186; 87635; 96361; 96374; 99285

== ENCOUNTER 2022-09-03 10:58 | Emergency (ER) | payer MEDICARE ==
[2022-09-03 11:08] VITALS: BP 132/59; PULSE 73; RESP 18; TEMP 97.5
[2022-09-03] MEDS ORDERED: DIPH,PERTUS(ACELL)TETVAC-LF 0.5 ML VIAL IM ONE (11:49)
--- NOTE | 2022-09-03 11:50 | ED ---
Fall HPI - General Chief Complaint: Fall Stated Complaint: fall - head injury Time Seen by Provider: 09/03/22 11:35 Source: patient, family, RN notes reviewed, old records reviewed Mode of arrival: ambulatory Limitations: physical limitation (Parkinson's) - History of Present Illness Initial Comments: 71-year-old male, alert and oriented 4 presents to the emergency room with complaints of a trip and fall on a step at home 4 days ago. states that she was there and witnessed the fall and he did not lose consciousness. She states that he is normally unsteady due to his Parkinson's and seen him lose his balance as he reached for a package on the ground. He did hit his left side of his forehead and sustained an abrasion. She did call primary care doctor's office to going for evaluation and was recommended he come to the emergency room. Patient denies any pain. No other symptoms. Does not take any blood thinners. No other medical history other than Parkinson's. MD Complaint: fall -: days(s) (4) Fall From: standing When Fall Occurred: # days [employer] (4) Fall Witnessed: yes, by family Place Fall Occurred: home Loss of Consciousness: none Prolonged Down Time?: no Symptoms Prior to Fall: none Location: head Severity scale (1-10): 0 Context: tripped/slipped (Parkinson's) Associated Symptoms: denies - Related Data Home Medications Medication Instructions Recorded Confirmed Carbidopa/Levodopa/Entacapone 1 tab PO TID@0800,1200,1600 08/23/20 09/03/22 [Carbidopa-Levodopa 200 mg-Enta] polyethylene glycoL 3350 [Miralax] 17 gm PO DAILY PRN 08/23/20 09/03/22 Carbidopa-Levodopa 25-100 mg 1 tab PO DAILY PRN 01/20/21 09/03/22 [Sinemet 25-100 mg] Sennosides [Senna] 16.2 mg PO DAILY PRN 01/20/21 09/03/22 Donepezil HCl [Aricept] 10 mg PO DAILY@1600 09/03/22 09/03/22 Tamsulosin HCl [Flomax] 0.4 mg PO DAILY@1600 09/03/22 09/03/22 amantadine HCL [Amantadine] 100 mg PO BID@0800,1600 09/03/22 09/03/22 Allergies Allergy/AdvReac Type Severity Reaction Status Date / Time bee pollen Allergy Unknown Verified 09/03/22 12:12 Penicillins AdvReac Diarrhea Verified 09/03/22 12:12 (C-Diff) Review of Systems ROS Statement: Those systems with pertinent positive or pertinent negative responses have been documented in the HPI. ROS Other: All systems not noted in ROS Statement are negative. Past Medical History Past Medical History: Musculoskeletal Disorder Additional Past Medical History / Comment(s): Parkinson's History of Any Multi-Drug Resistant Organisms: C-DIFF Date of last positivie culture/infection: 12/10/2016 MDRO Source:: "marginal" c-diff, pt states this is "all gone" Past Surgical History: Orthopedic Surgery Additional Past Surgical History / Comment(s): right knee sx, back sx, neck surgery Past Anesthesia/Blood Transfusion Reactions: No Reported Reaction Past Psychological History: No Psychological Hx Reported Smoking Status: Never smoker Past Alcohol Use History: Occasional Past Drug Use History: None Reported General Exam Limitations: no limitations General appearance: alert, in no apparent distress Head exam: Present: normocephalic, other (4 x 5 cm abrasion noted to the left forehead, ecchymosis surrounding left eye, no swelling or conjunctival injection) Expanded Head exam: Present: abrasion. Absent: hematoma, arcos's sign, general tenderness, tenderness of temporal artery, CSF rhinorrhea, CSF otorrhea Eye exam: Present: normal appearance, PERRL. Absent: scleral icterus, conjunctival injection, nystagmus, periorbital swelling ENT exam: Present: mucous membranes moist Expanded Mouth exam: Present: tongue normal, tongue elevation. Absent: drooling, trismus, muffled voice Neck exam: Present: normal inspection, other (cspine surgical scar). Absent: tenderness, meningismus Respiratory exam: Absent: respiratory distress, accessory muscle use Cardiovascular Exam: Present: regular rate GI/Abdominal exam: Present: soft. Absent: distended, tenderness, rigid Extremities exam: Present: normal capillary refill. Absent: pedal edema Neurological exam: Present: alert, oriented X3 Expanded Patient oriented to: Present: person, place, time Speech: Present: fluid speech Cranial nerves: EOM's Intact: Normal, Gag Reflex: Normal, Tongue Deviation: Normal Cerebellar function: Finger to Nose: Normal Motor strength exam: RUE: 5, LUE: 5, RLE: 5, LLE: 5 Eye Response: (4) open spontaneously Motor Response: (6) obeys commands Verbal Response: (5) oriented [place] Total: 15 Psychiatric exam: Present: normal affect, normal mood Skin exam: Present: warm, dry, normal color. Absent: cyanosis, diaphoretic, petechiae, pallor Course Vital Signs 09/03/22 11:00 Temperature 97.5 F L Pulse Rate 73 Respiratory 18 Rate Blood Pressure 132/59 O2 Sat by Pulse 95 Oximetry Medical Decision Making - Medical Decision Making Due to patient's Parkinson's he tripped over a step on Friday and hit the left side of his head. No loss of consciousness. There is an abrasion to the left side of his forehead with bruising around his left eye. No pain with eye movement or visual changes. Denies any headaches. Patient denies any other injuries at this time. Does take aspirin a day with a blood thinners. states that they did try to contact primary care doctor's office for evaluation and they recommended he come to the emergency room. CT brain and C-spine show no acute intracranial hemorrhage, mass effect or midline shift. CT C-spine shows postop changes with multilevel laminectomies C1 through upper thoracic. CT of the facial bones show no acute fractures. Facial bones intact. Vital signs are stable. No focal neurological deficits. Patient does have tremors from his parkinsons. Vital signs are stable. Patient denies any complaints of pain and no other injuries. Neosporin dressing was applied to forehead abrasion. They were directed to follow up with primary doctor next week. Return to the emergency room with any new or concerning symptoms. Tetanus shot was updated at this visit. Case discussed with Dr. Wright Disposition Clinical Impression: Fall, Facial abrasion Disposition: HOME SELF-CARE Condition: Good Instructions (If sedation given, give patient instructions): Fall Prevention for Older Adults (ED), Abrasion (ED) Additional Instructions: Put Neosporin ointment on facial abrasion once a day for the next 2 days. Follow-up with the primary care doctor this week. Return to the emergency room with any new or concerning symptoms. Is patient prescribed a controlled substance at d/c from ED?: No Referrals: Boogie Chirinos MD [Primary Care Provider] - 1-2 days Time of Disposition: 12:51
--- NOTE | 2022-09-03 12:38 | CT ---
EXAMINATION TYPE: CT brain cspine wo con DATE OF EXAM: 09/03/2022 COMPARISON: CT 01/20/2021 HISTORY: fall [address] DLP: combined DLP 1261 mGycm Automated exposure control for dose reduction was used. TECHNIQUE: CT scan of the head and cervical spine are performed without contrast. FINDINGS: There is artifact on the exams. There is no acute intracranial hemorrhage, mass effect, or midline shift identified. The ventricle s and sulci are within normal limits in size. The globes are intact and the visualized sinuses are c lear. Brain shows a stable appearance. There is cortical atrophy. Some periventricular white matter l ow-attenuation is suspected suggestive of chronic small vessel ischemic changes. Cervical spine is visualized in its entirety from C1 through upper thoracic levels and demonstrates s table alignment without evidence of acute fracture or dislocation. Posterior fusion changes, multilev el laminectomies are again noted, there is artifact due to patient's metallic hardware. Loss of disc height is present at intervertebral levels. Multilevel facet arthropathy changes present. There is mu ltilevel foraminal encroachment. Prevertebral soft tissue appears within normal limits. Multilevel i ntervertebral loss of disc height. Multilevel spondylosis. Cervical vertebral bodies show preserved h eight. The C1-C2 articulation is unremarkable. IMPRESSION: 1. There is no acute fracture or dislocation evident in the cervical spine, there are postop changes and additional findings above.. 2. No acute intracranial hemorrhage, mass effect, or midline shift is seen.
--- NOTE | 2022-09-03 12:43 | CT ---
EXAMINATION TYPE: CT facial bones wo con DATE OF EXAM: 09/03/2022 COMPARISON: CT facial bones 2018 HISTORY: fall 4 days ago trauma and pain CT DLP: combined DLP 1261 mGycm Automated exposure control for dose reduction was used. TECHNIQUE: CT scan of the sinuses is performed without contrast, axial images are obtained, coronal r eformatted images are also reviewed. FINDINGS: Dental amalgam causes streak artifact over the exam. The possible mucus retention cyst at t he right maxillary sinus antrum and left maxillary sinus are stable. Facial bones are intact. No air- fluid level in the visualized sinuses to suggest acute hemorrhage. IMPRESSION: No acute fracture.
[2022-09-03] MEDS ORDERED: BACITRACIN OINT 1 EACH PACKET TOPICAL ONE (12:51)
== END 2022-09-03 13:00 | disposition home or self-care (01) ==
LOC: EC 10:58
DX: S00.81XA Abrasion of other part of head, initial encounter (principal); Z91.030 Bee allergy status; Z88.0 Allergy status to penicillin; W01.0XXA Fall on same level from slipping, tripping and stumbling without subsequent striking against object, initial encounter; Z23 Encounter for immunization
CPT/HCPCS: 70450; 70486; 72125; 90471; 90715; 99284

== ENCOUNTER 2023-09-04 06:32 | Emergency (ER) | payer MEDICARE ==
[2023-09-04 06:38] VITALS: RESP 18; TEMP 99.3
--- NOTE | 2023-09-04 06:48 | ED ---
Altered Mental Status HPI - General Chief Complaint: Altered Mental Status Stated Complaint: Altered mental Time Seen by Provider: 09/04/23 06:34 Source: patient, EMS, RN notes reviewed Mode of arrival: EMS Limitations: altered mental status - History of Present Illness Initial Comments: 72-year-old male presents emergency from via EMS from home for complaints of possible UTI, mental status. Patient reports patient has been more confused than usual and she is concerned about possible UTI patient has had in the past does complain of mild urinary symptoms and chronic constipation or abdominal complaints denies reported fever no chest pain shortness of breath. He does admit that he feels really he has a history of Parkinson's disease. - Related Data Home Medications Medication Instructions Recorded Confirmed Carbidopa/Levodopa/Entacapone 1 tab PO TID@0800,1200,1600 08/23/20 09/03/22 [Carbidopa-Levodopa 200 mg-Enta] polyethylene glycoL 3350 [Miralax] 17 gm PO DAILY PRN 08/23/20 09/03/22 Carbidopa-Levodopa 25-100 mg 1 tab PO DAILY PRN 01/20/21 09/03/22 [Sinemet 25-100 mg] Sennosides [Senna] 16.2 mg PO DAILY PRN 01/20/21 09/03/22 Donepezil HCl [Aricept] 10 mg PO DAILY@1600 09/03/22 09/03/22 Tamsulosin HCl [Flomax] 0.4 mg PO DAILY@1600 09/03/22 09/03/22 amantadine HCL [Amantadine] 100 mg PO BID@0800,1600 09/03/22 09/03/22 Allergies Allergy/AdvReac Type Severity Reaction Status Date / Time bee pollen Allergy Unknown Verified 09/04/23 06:38 Penicillins AdvReac Diarrhea Verified 09/04/23 06:38 (C-Diff) Review of Systems ROS Statement: Those systems with pertinent positive or pertinent negative responses have been documented in the HPI. ROS Other: All systems not noted in ROS Statement are negative. Past Medical History Past Medical History: Musculoskeletal Disorder Additional Past Medical History / Comment(s): Parkinson's History of Any Multi-Drug Resistant Organisms: C-DIFF Date of last positivie culture/infection: 12/10/2016 MDRO Source:: "marginal" c-diff, pt states this is "all gone" Past Surgical History: Orthopedic Surgery Additional Past Surgical History / Comment(s): right knee sx, back sx, neck surgery Past Anesthesia/Blood Transfusion Reactions: No Reported Reaction Past Psychological History: No Psychological Hx Reported Smoking Status: Never smoker Past Alcohol Use History: Occasional Past Drug Use History: None Reported General Exam Limitations: altered mental status General appearance: alert, in no apparent distress Head exam: Present: atraumatic, normocephalic, normal inspection Eye exam: Present: normal appearance, PERRL, EOMI. Absent: scleral icterus, conjunctival injection, periorbital swelling ENT exam: Present: normal exam, mucous membranes moist Neck exam: Present: normal inspection, full ROM. Absent: tenderness, meningismus, lymphadenopathy Respiratory exam: Present: normal lung sounds bilaterally. Absent: respiratory distress, wheezes, rales, rhonchi, stridor Cardiovascular Exam: Present: regular rate, normal rhythm, normal heart sounds. Absent: systolic murmur, diastolic murmur, rubs, gallop, clicks GI/Abdominal exam: Present: soft, normal bowel sounds. Absent: distended, tenderness, guarding, rebound, rigid Neurological exam: Present: alert Skin exam: Present: warm, dry, intact, normal color. Absent: rash Course Vital Signs 09/04/23 09/04/23 06:34 09:48 Temperature 99.3 F Pulse Rate 64 78 Respiratory 18 18 Rate Blood Pressure 143/89 135/74 O2 Sat by Pulse 99 99 Oximetry Medical Decision Making - Medical Decision Making Was pt. sent in by a medical professional or institution (, PA, DONATIONS ATTENDANT, urgent care, hospital, or usp...) When possible be specific @ -no Did you speak to anyone other than the patient for history (EMS, parent, family, police, friend...)? What history was obtained from this source @ - providing significant past medical history Did you review nursing and triage notes (agree or disagree)? Why? @ -I reviewed and agree with nursing and triage notes Were old charts reviewed (outside hosp., previous admission, EMS record, old EKG, old radiological studies, urgent care reports/EKG's, usp records)? Report findings @ -No old charts were reviewed Differential Diagnosis (chest pain, altered mental status, abdominal pain women, abdominal pain men, vaginal bleeding, weakness, fever, dyspnea, syncope, headache, dizziness, GI bleed, back pain, seizure, CVA, palpatations, mental health, musculoskeletal)? @ -Julienne Croft weakness EKG interpreted by me (3pts min.). @ -As above X-rays interpreted by me (1pt min.). @ -Chest x-ray is negative for acute process CT interpreted by me (1pt min.). @ -None done U/S interpreted by me (1pt. min.). @ -None done What testing was considered but not performed or refused? (CT, X-rays, U/S, labs)? Why? @ -None What meds were considered but not given or refused? Why? @ -None Did you discuss the management of the patient with other professionals (professionals i.e. , PA, DONATIONS ATTENDANT, lab, RT, psych nurse, medical social worker, sales warehouse driver, teacher, credit risk officer, housing case manager)? Give summary @ -No Was smoking cessation discussed for >3mins.? @ -No Was critical care preformed (if so, how long)? @ -No Were there social determinants of health that impacted care today? How? (Homelessness, low income, unemployed, alcoholism, drug addiction, transportation, low edu. Level, literacy, decrease access to med. care, intermediate, rehab)? @ -No Was there de-escalation of care discussed even if they declined (Discuss DNR or withdrawal of care, Hospice)? DNR status @ -No What co-morbidities impacted this encounter? (DM, HTN, Smoking, COPD, CAD, Cancer, CVA, ARF, Chemo, Hep., AIDS, mental health diagnosis, sleep apnea, morbid obesity)? @ -Dementia, Parkinson's Was patient admitted / discharged? Hospital course, mention meds given and route, prescriptions, significant lab abnormalities, going to OR and other pertinent info. @ -Discharge patient and are offered admission for placement as she was requesting she states she does not like any rehab facilities or nursing homes around here he would prefer to take him home and 5 and AFC home. She is provided a large amount information return parameters were discussed. Undiagnosed new problem with uncertain prognosis? @ -No Drug Therapy requiring intensive monitoring for toxicity (Heparin, Nitro, Insulin, Cardizem)? @ -No Were any procedures done? @ -No Diagnosis/symptom? @ -Dementia, Parkinson's Acute, or Chronic, or Acute on Chronic? @ -Chronic Uncomplicated (without systemic symptoms) or Complicated (systemic symptoms)? @ -[complicated Side effects of treatment? @ -No Exacerbation, Progression, or Severe Exacerbation? @ -No Poses a threat to life or bodily function? How? (Chest pain, [place], [place], pneumonia, PE, COPD, DKA, ARF, appy, cholecystitis, CVA, Diverticulitis, Homicidal, Suicidal, threat to staff... and all critical care pts) @ -No - Lab Data Result diagrams: 09/04/23 06:50 09/04/23 06:50 Lab Results 09/04/23 09/04/23 09/04/23 Range/Units 06:50 06:50 06:50 WBC 5.7 (3.8-10.6) k/uL RBC 4.37 (4.30-5.90) m/uL Hgb 14.1 (13.0-17.5) gm/dL Hct 41.4 (39.0-53.0) % MCV 94.8 (80.0-100.0) fL MCH 32.2 (25.0-35.0) pg MCHC 34.0 (31.0-37.0) g/dL RDW 12.8 (11.5-15.5) % Plt Count 107 L (150-450) k/uL MPV 8.2 Neutrophils % 73 % Lymphocytes % 15 % Monocytes % 10 % Eosinophils % 1 % Basophils % 0 % Neutrophils # 4.1 (1.3-7.7) k/uL Lymphocytes # 0.9 L (1.0-4.8) k/uL Monocytes # 0.6 (0-1.0) k/uL Eosinophils # 0.0 (0-0.7) k/uL Basophils # 0.0 (0-0.2) k/uL Sodium 135 L (137-145) mmol/L Potassium 4.2 (3.5-5.1) mmol/L Chloride 106 (98-107) mmol/L Carbon Dioxide 21 L (22-30) mmol/L Anion Gap 8 mmol/L BUN 21 H (9-20) mg/dL Creatinine 0.98 (0.66-1.25) mg/dL Est GFR (CKD-EPI)AfAm >90 (>60 ml/min/1.73 sqM) Est GFR (CKD-EPI)NonAf 78 (>60 ml/min/1.73 sqM) Glucose 85 (74-99) mg/dL Plasma Lactic Acid Morgan (0.7-2.0) mmol/L Calcium 8.0 L (8.4-10.2) mg/dL Magnesium 1.7 (1.6-2.3) mg/dL Total Bilirubin 1.3 (0.2-1.3) mg/dL AST 34 (17-59) U/L ALT 20 (4-49) U/L Alkaline Phosphatase 77 (38-126) U/L Total Protein 6.1 L (6.3-8.2) g/dL Albumin 3.5 (3.5-5.0) g/dL Urine Color Yellow Urine Appearance Clear (Clear) Urine pH 6.0 (5.0-8.0) Ur Specific [place] 1.017 (1.001-1.035) Urine Protein Trace H (Negative) Urine Glucose (UA) Negative (Negative) Urine Ketones Trace H (Negative) Urine Blood Small H (Negative) Urine Nitrite Negative (Negative) Urine Bilirubin Negative (Negative) Urine Urobilinogen <2.0 (<2.0) mg/dL Ur Leukocyte Esterase Negative (Negative) Urine RBC 5 (0-5) /hpf Urine WBC <1 (0-5) /hpf Urine Mucus Rare H (None) /hpf 09/04/23 Range/Units 06:50 WBC (3.8-10.6) k/uL RBC (4.30-5.90) m/uL Hgb (13.0-17.5) gm/dL Hct (39.0-53.0) % MCV (80.0-100.0) fL MCH (25.0-35.0) pg MCHC (31.0-37.0) g/dL RDW (11.5-15.5) % Plt Count (150-450) k/uL MPV Neutrophils % % Lymphocytes % % Monocytes % % Eosinophils % % Basophils % % Neutrophils # (1.3-7.7) k/uL Lymphocytes # (1.0-4.8) k/uL Monocytes # (0-1.0) k/uL Eosinophils # (0-0.7) k/uL Basophils # (0-0.2) k/uL Sodium (137-145) mmol/L Potassium (3.5-5.1) mmol/L Chloride (98-107) mmol/L Carbon Dioxide (22-30) mmol/L Anion Gap mmol/L BUN (9-20) mg/dL Creatinine (0.66-1.25) mg/dL Est GFR (CKD-EPI)AfAm (>60 ml/min/1.73 sqM) Est GFR (CKD-EPI)NonAf (>60 ml/min/1.73 sqM) Glucose (74-99) mg/dL Plasma Lactic Acid Morgan 1.0 (0.7-2.0) mmol/L Calcium (8.4-10.2) mg/dL Magnesium (1.6-2.3) mg/dL Total Bilirubin (0.2-1.3) mg/dL AST (17-59) U/L ALT (4-49) U/L Alkaline Phosphatase (38-126) U/L Total Protein (6.3-8.2) g/dL Albumin (3.5-5.0) g/dL Urine Color Urine Appearance (Clear) Urine pH (5.0-8.0) Ur Specific [place] (1.001-1.035) Urine Protein (Negative) Urine Glucose (UA) (Negative) Urine Ketones (Negative) Urine Blood (Negative) Urine Nitrite (Negative) Urine Bilirubin (Negative) Urine Urobilinogen (<2.0) mg/dL Ur Leukocyte Esterase (Negative) Urine RBC (0-5) /hpf Urine WBC (0-5) /hpf Urine Mucus (None) /hpf - EKG Data -: EKG Interpreted by Me EKG Comments: EKG 0758 sinus rhythm rate of 68 MS 199 QRS 92 QT/QTc 14/418 Disposition Clinical Impression: Dementia, Parkinson disease Disposition: HOME SELF-CARE Condition: Stable Instructions (If sedation given, give patient instructions): Parkinson Disease (ED), Dementia (ED) Additional Instructions: Please return to the Emergency Department if symptoms worsen or any other concerns. Is patient prescribed a controlled substance at d/c from ED?: No Referrals: Boogie Chirinos MD [Primary Care Provider] - 1-2 days (Office has been contacted regarding appointment. Dr Chirinos is no longer at practice but office is attempting to get first available and will contact you. ) Forms: Adult Foster Prison List, Community Resources, Help In The Home, Personal Packing Line Worker Time of Disposition: 09:15
[2023-09-04 07:03] LABS: Basophils % (A) 0 %; Eosinophils % (A) 1 %; HCT 41.4 % (39.0-53.0); HGB 14.1 gm/dL (13.0-17.5); Lymphocytes # (A) 0.9 k/uL (1.0-4.8); Lymphocytes % (A) 15 %; MCH 32.2 pg (25.0-35.0); MCV 94.8 fL (80.0-100.0); Mean Platelet Volume 8.2; Monocytes # (A) 0.6 k/uL (0-1.0); Monocytes % (A) 10 %; Neutrophils # (A) 4.1 k/uL (1.3-7.7); Neutrophils % (A) 73 %; Platelet Count 107 k/uL (150-450); RBC 4.37 m/uL (4.30-5.90); RDW 12.8 % (11.5-15.5); WBC 5.7 k/uL (3.8-10.6)
[2023-09-04 07:21] LABS: ALT 20 U/L (4-49); AST 34 U/L (17-59); African American GFR (CKD) >90 (>60 ml/min/1.73 sqM); Albumin 3.5 g/dL (3.5-5.0); Alkaline Phosphatase 77 U/L (38-126); Anion Gap 8 mmol/L; Blood Urea Nitrogen 21 mg/dL (9-20); Carbon Dioxide 21 mmol/L (22-30); Chloride 106 mmol/L (98-107); Glucose 85 mg/dL (74-99); Magnesium 1.7 mg/dL (1.6-2.3); Non-African American GFR(CKD) 78 (>60 ml/min/1.73 sqM); Potassium 4.2 mmol/L (3.5-5.1); Sodium 135 mmol/L (137-145); Total Bilirubin 1.3 mg/dL (0.2-1.3); Total Protein 6.1 g/dL (6.3-8.2)
--- NOTE | 2023-09-04 07:22 | XR ---
EXAMINATION TYPE: XR chest 2V DATE OF EXAM: 09/04/2023 7:12 AM CLINICAL INDICATION:Male, 72 years old with history of altered mental status; COMPARISON: Chest radiographs from 01/20/2021 TECHNIQUE: XR chest 2V Frontal and lateral views of the chest. FINDINGS: Lungs/Pleura: There is no evidence of pleural effusion, focal consolidation, or pneumothorax. Pulmonary vascularity: Unremarkable. Heart/mediastinum: Cardiomediastinal silhouette is unremarkable. Musculoskeletal: No acute osseous pathology. IMPRESSION: No acute cardiopulmonary disease/process.
[2023-09-04 09:01] LABS: Appearance,Urine Clear (Clear); Bilirubin,Urine Negative (Negative); Blood,Urine Small (Negative); Color,Urine Yellow; Glucose,Urine (UA) Negative (Negative); Ketones,Urine Trace (Negative); Leukocyte Esterase,Urine Negative (Negative); Mucus,Urine Rare /hpf; Nitrite,Urine Negative (Negative); Protein,Urine Trace (Negative); RBC,Urine 5 /hpf (0-5); Specific Gravity,Urine 1.017 (1.001-1.035); Urobilinogen,Urine <2.0 mg/dL (<2.0); WBC,Urine <1 /hpf (0-5)
[2023-09-04 09:54] VITALS: BP 135/74; PULSE 78
== END 2023-09-04 09:48 | disposition home or self-care (01) ==
LOC: EC 06:32
DX: G20.A1 Parkinson's disease without dyskinesia, without mention of fluctuations (principal); F02.80 Dementia in other diseases classified elsewhere, unspecified severity, without behavioral disturbance, psychotic disturbance, mood disturbance, and anxiety; Z91.030 Bee allergy status; Z88.0 Allergy status to penicillin
CPT/HCPCS: 36415; 71046; 80053; 81001; 83605; 83735; 85025; 93005; 99285

== ENCOUNTER 2025-02-15 17:36 | Emergency (ER) | payer MEDICARE ==
[2025-02-15 17:47] VITALS: PULSE 89
--- NOTE | 2025-02-15 18:05 | ED ---
Weakness HPI - General Chief complaint: Weakness Stated complaint: weakness Time Seen by Provider: 02/15/25 17:56 Source: EMS, RN notes reviewed, old records reviewed Mode of arrival: EMS Limitations: altered mental status, physical limitation - History of Present Illness Initial comments: This is a 74 male to the ER for evaluation as patient presents today for evaluation of weakness altered mental status not acting appropriately. Patient recently being treated for urinary tract infection but has no other significant complaints patient himself does not want to be in the hospital and has no complaints here in the ER MD Complaint: generalized weakness -: days(s) Location: generalized Severity: moderate Severity scale (1-10): 4 Consistency: constant Improves with: none Worsens with: none Context: recent illness, history of similar Associated Symptoms: denies other symptoms - Related Data Home Medications Medication Instructions Recorded Confirmed Carbidopa/Levodopa/Entacapone 1 tab PO TID@0800,1200,1600 08/23/20 09/03/22 [Carbidopa-Levodopa 200 mg-Enta] polyethylene glycoL 3350 [Miralax] 17 gm PO DAILY PRN 08/23/20 09/03/22 Carbidopa-Levodopa 25-100 mg 1 tab PO DAILY PRN 01/20/21 09/03/22 [Sinemet 25-100 mg] Sennosides [Senna] 16.2 mg PO DAILY PRN 01/20/21 09/03/22 Donepezil HCl [Aricept] 10 mg PO DAILY@1600 09/03/22 09/03/22 Tamsulosin HCl [Flomax] 0.4 mg PO DAILY@1600 09/03/22 09/03/22 amantadine HCL [Amantadine] 100 mg PO BID@0800,1600 09/03/22 09/03/22 Allergies Allergy/AdvReac Type Severity Reaction Status Date / Time bee pollen Allergy Unknown Verified 09/04/23 06:38 Penicillins AdvReac Diarrhea Verified 09/04/23 06:38 (C-Diff) Review of Systems ROS Statement: Those systems with pertinent positive or pertinent negative responses have been documented in the HPI. ROS Other: All systems not noted in ROS Statement are negative. Past Medical History Past Medical History: Musculoskeletal Disorder Additional Past Medical History / Comment(s): Parkinson's History of Any Multi-Drug Resistant Organisms: C-DIFF Date of last positivie culture/infection: 12/10/2016 MDRO Source:: "marginal" c-diff, pt states this is "all gone" Past Surgical History: Orthopedic Surgery Additional Past Surgical History / Comment(s): right knee sx, back sx, neck surgery Past Anesthesia/Blood Transfusion Reactions: No Reported Reaction Past Psychological History: No Psychological Hx Reported Smoking Status: Never smoker Past Alcohol Use History: Occasional Past Drug Use History: None Reported General Exam Limitations: altered mental status, physical limitation General appearance: alert, in no apparent distress Head exam: Present: atraumatic, normocephalic, normal inspection Eye exam: Present: normal appearance, PERRL, EOMI. Absent: scleral icterus, conjunctival injection, periorbital swelling ENT exam: Present: normal exam, mucous membranes moist Neck exam: Present: normal inspection. Absent: tenderness, meningismus, lymphadenopathy Respiratory exam: Present: normal lung sounds bilaterally. Absent: respiratory distress, wheezes, rales, rhonchi, stridor Cardiovascular Exam: Present: regular rate, normal rhythm, normal heart sounds. Absent: systolic murmur, diastolic murmur, rubs, gallop, clicks GI/Abdominal exam: Present: soft, normal bowel sounds. Absent: distended, tenderness, guarding, rebound, rigid Extremities exam: Present: normal inspection, full ROM, normal capillary refill. Absent: tenderness, pedal edema, joint swelling, calf tenderness Back exam: Present: normal inspection Neurological exam: Present: alert, oriented X3, CN II-XII intact Psychiatric exam: Present: normal affect, normal mood Skin exam: Present: warm, dry, intact, normal color. Absent: rash Course Vital Signs 02/15/25 02/15/25 17:44 20:20 Temperature 99.3 F 98.3 F Pulse Rate 89 89 Respiratory 20 18 Rate Blood Pressure 154/69 170/82 O2 Sat by Pulse 98 98 Oximetry - Reevaluation(s) Reevaluation #1: 02/15/25 20:11 Medical records reviewed Reevaluation #2: 02/15/25 20:11 Patient symptoms unchanged Reevaluation #3: 02/15/25 20:11 Patient informed of results and questions answered Reevaluation #4: Was pt. sent in by a medical professional or institution (, PA, TAKE OUT WAITRESS, urgent care, hospital, or long term...) When possible be specific @ -no Did you speak to anyone other than the patient for history (EMS, parent, family, police, friend...)? What history was obtained from this source @ -no Did you review nursing and triage notes (agree or disagree)? Why? @ -agree Are old charts reviewed (outside hosp., previous admission, EMS record, old EKG, old radiological studies, urgent care reports/EKG's, long term records)? Report findings @ -yes Differential Diagnosis (chest pain, altered mental status, abdominal pain women, abdominal pain men, vaginal bleeding, weakness, fever, dyspnea, syncope, headache, dizziness, GI bleed, back pain, seizure, CVA, palpatations, mental health, musculoskeletal)? @ -prior EKG interpreted by me (3pts min.). @ -yes X-rays interpreted by me (1pt min.). @ -yes negative for acute disease CT interpreted by me (1pt min.). @ -no U/S interpreted by me (1pt. min.). @ -no What testing was considered but not performed or refused? (CT, X-rays, U/S, labs)? Why? @ -none What meds were considered but not given or refused? Why? @ -none Did you discuss the management of the patient with other professionals (professionals i.e. , PA, TAKE OUT WAITRESS, lab, RT, psych nurse, foster care social worker, health unit clerk, teacher, zoology technical officer, case loader operator)? Give summary @ -no Was smoking cessation discussed for >3mins.? @ -no Was critical care preformed (if so, how long)? @ -no Were there social determinants of health that impacted care today? How? (Homelessness, low income, unemployed, alcoholism, drug addiction, transp ortation, low edu. Level, literacy, decrease access to med. care, long term, rehab)? @ -none Was there de-escalation of care discussed even if they declined (Discuss DNR or withdrawal of care, Hospice)? DNR status @ -no What co-morbidities impacted this encounter? (DM, HTN, Smoking, COPD, CAD, Cancer, CVA, ARF, Chemo, Hep., AIDS, mental health diagnosis, sleep apnea, morbid obesity)? @ -none Was patient admitted / discharged? Hospital course, mention meds given and route, prescriptions, significant lab abnormalities, going to OR and other pertinent info. @ - 74 male to the ER for evaluation patient presents today for evaluation regards to altered mental status but he seems to be acting at appropriate situation here in the ER patient can be discharged home Discharge Undiagnosed new problem with uncertain prognosis? @ -no Drug Therapy requiring intensive monitoring for toxicity (Heparin, Nitro, Insulin, Cardizem)? @ -no Were any procedures done? @ -no Diagnosis/symptom? @ -Altered mental status Acute, or Chronic, or Acute on Chronic? @ -Acute Uncomplicated (without systemic symptoms) or Complicated (systemic symptoms)? @ -Complicated Side effects of treatment? @ -no Exacerbation, Progression, or Severe Exacerbation? @ -exacerbation Poses a threat to life or bodily function? How? (Chest pain, [place], [place], pneumonia, PE, COPD, DKA, ARF, appy, cholecystitis, CVA, Diverticulitis, Homicidal, Suicidal, threat to staff... and all critical care pts) @ -yes extremes of age Reevaluation #5: Differential Altered Mental Status: Hypoglycemia, DKA, hypercapnia, ETOH, overdose, CO poisoning, trauma, myxedema coma, HTN encephalopathy, infection, encephalitis, psychosis, intercranial hemorrhage, hepatic encephalopathy, meningitis, CVA, this is not meant to be an all-inclusive list EKG Findings - EKG Comments: EKG Findings:: EKG is sinus 73 MT 144 QRS 94 QTc 432 - EKG Results: EKG: interpreted by MARIAMAD Medical Decision Making - Medical Decision Making 74 male to the ER for evaluation patient presents today for evaluation regards to altered mental status but he seems to be acting at appropriate situation here in the ER patient can be discharged home - Lab Data Result diagrams: 02/15/25 18:16 02/15/25 18:16 Lab Results 02/15/25 02/15/25 02/15/25 Range/Units 18:16 18:16 18:16 WBC 11.2 H (3.8-10.6) k/uL RBC 4.51 (4.30-5.90) m/uL Hgb 14.0 (13.0-17.5) gm/dL Hct 42.3 (39.0-53.0) % MCV 94.0 (80.0-100.0) fL MCH 31.1 (25.0-35.0) pg MCHC 33.1 (31.0-37.0) g/dL RDW 12.8 (11.5-15.5) % Plt Count 202 (150-450) k/uL MPV 7.4 Neutrophils % 88 % Lymphocytes % 6 % Monocytes % 4 % Eosinophils % 1 % Basophils % 0 % Neutrophils # 9.9 H (1.3-7.7) k/uL Lymphocytes # 0.6 L (1.0-4.8) k/uL Monocytes # 0.5 (0-1.0) k/uL Eosinophils # 0.2 (0-0.7) k/uL Basophils # 0.0 (0-0.2) k/uL PT 11.0 (10.0-12.5) sec INR 1.0 (<1.2) APTT 22.5 (22.0-30.0) sec Sodium 135 L (137-145) mmol/L Potassium 4.8 (3.5-5.1) mmol/L Chloride 100 (98-107) mmol/L Carbon Dioxide 29 (22-30) mmol/L Anion Gap 6 mmol/L BUN 27 H (9-20) mg/dL Creatinine 0.97 (0.66-1.25) mg/dL Est GFR (CKD-EPI)AfAm 90 (>60 ml/min/1.73 sqM) Est GFR (CKD-EPI)NonAf 78 (>60 ml/min/1.73 sqM) Glucose 90 (74-99) mg/dL Plasma Lactic Acid Morgan (0.7-2.0) mmol/L Calcium 8.8 (8.4-10.2) mg/dL Phosphorus 3.2 (2.5-4.5) mg/dL Magnesium 1.7 (1.6-2.3) mg/dL Total Bilirubin 1.4 H (0.2-1.3) mg/dL AST 25 (17-59) U/L ALT 6 (4-49) U/L Alkaline Phosphatase 106 (38-126) U/L Troponin I (0.000-0.034) ng/mL NT-Pro-B Natriuret Pep 491 pg/mL Total Protein 6.6 (6.3-8.2) g/dL Albumin 3.9 (3.5-5.0) g/dL TSH 0.901 (0.465-4.680) mIU/L 02/15/25 02/15/25 Range/Units 18:16 18:16 WBC (3.8-10.6) k/uL RBC (4.30-5.90) m/uL Hgb (13.0-17.5) gm/dL Hct (39.0-53.0) % MCV (80.0-100.0) fL MCH (25.0-35.0) pg MCHC (31.0-37.0) g/dL RDW (11.5-15.5) % Plt Count (150-450) k/uL MPV Neutrophils % % Lymphocytes % % Monocytes % % Eosinophils % % Basophils % % Neutrophils # (1.3-7.7) k/uL Lymphocytes # (1.0-4.8) k/uL Monocytes # (0-1.0) k/uL Eosinophils # (0-0.7) k/uL Basophils # (0-0.2) k/uL PT (10.0-12.5) sec INR (<1.2) APTT (22.0-30.0) sec Sodium (137-145) mmol/L Potassium (3.5-5.1) mmol/L Chloride (98-107) mmol/L Carbon Dioxide (22-30) mmol/L Anion Gap mmol/L BUN (9-20) mg/dL Creatinine (0.66-1.25) mg/dL Est GFR (CKD-EPI)AfAm (>60 ml/min/1.73 sqM) Est GFR (CKD-EPI)NonAf (>60 ml/min/1.73 sqM) Glucose (74-99) mg/dL Plasma Lactic Acid [place] 1.6 (0.7-2.0) mmol/L Calcium (8.4-10.2) mg/dL Phosphorus (2.5-4.5) mg/dL Magnesium (1.6-2.3) mg/dL Total Bilirubin (0.2-1.3) mg/dL AST (17-59) U/L ALT (4-49) U/L Alkaline Phosphatase (38-126) U/L Troponin I 0.020 (0.000-0.034) ng/mL NT-Pro-B Natriuret Pep pg/mL Total Protein (6.3-8.2) g/dL Albumin (3.5-5.0) g/dL TSH (0.465-4.680) mIU/L - EKG Data -: EKG Interpreted by Me - Radiology Data Radiology results: report reviewed (Chest x-ray is negative for acute disease), image reviewed Disposition Clinical Impression: UTI (urinary tract infection), Confusion, Altered mental status Disposition: HOME SELF-CARE Condition: Fair Instructions (If sedation given, give patient instructions): Altered Mental Status (ED) Is patient prescribed a controlled substance at d/c from ED?: No Referrals: Jazmine Michel MD [Primary Care Provider] - 1-2 days Time of Disposition: 19:00
[2025-02-15] MEDS: SODIUM CHLORIDE 0.9% 1,000 ML IV ONE (18:17)
[2025-02-15 18:28] LABS: Basophils % (A) 0 %; Eosinophils # (A) 0.2 k/uL (0-0.7); Eosinophils % (A) 1 %; HCT 42.3 % (39.0-53.0); Lymphocytes # (A) 0.6 k/uL (1.0-4.8); Lymphocytes % (A) 6 %; MCH 31.1 pg (25.0-35.0); MCHC 33.1 g/dL (31.0-37.0); Mean Platelet Volume 7.4; Monocytes # (A) 0.5 k/uL (0-1.0); Monocytes % (A) 4 %; Neutrophils # (A) 9.9 k/uL (1.3-7.7); Neutrophils % (A) 88 %; Platelet Count 202 k/uL (150-450); RBC 4.51 m/uL (4.30-5.90); RDW 12.8 % (11.5-15.5); WBC 11.2 k/uL (3.8-10.6)
[2025-02-15 18:36] LABS: ALT 6 U/L (4-49); AST 25 U/L (17-59); African American GFR (CKD) 90 (>60 ml/min/1.73 sqM); Albumin 3.9 g/dL (3.5-5.0); Alkaline Phosphatase 106 U/L (38-126); Anion Gap 6 mmol/L; Blood Urea Nitrogen 27 mg/dL (9-20); Calcium 8.8 mg/dL (8.4-10.2); Carbon Dioxide 29 mmol/L (22-30); Chloride 100 mmol/L (98-107); Glucose 90 mg/dL (74-99); Magnesium 1.7 mg/dL (1.6-2.3); Non-African American GFR(CKD) 78 (>60 ml/min/1.73 sqM); Partial Thromboplastin Time 22.5 sec (22.0-30.0); Phosphorus 3.2 mg/dL (2.5-4.5); Potassium 4.8 mmol/L (3.5-5.1); Sodium 135 mmol/L (137-145); Total Bilirubin 1.4 mg/dL (0.2-1.3); Total Protein 6.6 g/dL (6.3-8.2)
[2025-02-15 18:45] LABS: NT-Pro-B-Type Natriuretic Pept 491 pg/mL
--- NOTE | 2025-02-15 18:56 | XR ---
EXAMINATION TYPE: XR chest 2V DATE OF EXAM: 02/15/2025 6:50 PM COMPARISON: Chest radiographs from 09/04/2023 CLINICAL INDICATION: Male, 74 years old with history of Weakness; [facility] TECHNIQUE: XR chest 2V Frontal and lateral views of the chest. FINDINGS: Lungs/Pleura: There is no evidence of pleural effusion, focal consolidation, or pneumothorax. Pulmonary vascularity: Unremarkable. Heart/mediastinum: Cardiomediastinal silhouette is unremarkable. Musculoskeletal: No acute osseous pathology. IMPRESSION: No acute cardiopulmonary disease/process. [facility], , 02/15/2025 6:53 PM
[2025-02-15] MEDS: CEPHALEXIN 500 MG CAP PO STA (20:08)
[2025-02-15 20:21] VITALS: BP 170/82; RESP 18; TEMP 98.3
== END 2025-02-15 20:21 | disposition home or self-care (01) ==
LOC: EC 17:36
DX: N39.0 Urinary tract infection, site not specified (principal); R41.0 Disorientation, unspecified; Z88.0 Allergy status to penicillin; Z91.030 Bee allergy status
CPT/HCPCS: 36415; 71046; 80053; 83605; 83735; 83880; 84100; 84443; 84484; 85025; 85610; 85730; 93005; 96360; 99285

== ENCOUNTER 2025-05-16 23:40 | Emergency (ER) | payer MEDICARE ==
[2025-05-16 23:54] VITALS: RESP 18; TEMP 98.1
[2025-05-17 00:57] LABS: Basophils # (A) 0.02 10*3/uL (0.00-0.10); Basophils % (A) 0.2 %; Eosinophils # (A) 0.12 10*3/uL (0.04-0.35); Eosinophils % (A) 1.2 %; HCT 36.8 % (39.6-50.0); HGB 12.6 g/dL (13.0-17.0); Lymphocytes # (A) 1.17 10*3/uL (0.90-5.00); Lymphocytes % (A) 11.6 %; MCH 31.8 pg (27.0-32.0); MCHC 34.2 g/dL (32.0-37.0); MCV 92.9 fL (80.0-97.0); Monocytes # (A) 1.07 10*3/uL (0.20-1.00); Monocytes % (A) 10.6 %; Neutrophils # (A) 7.71 10*3/uL (1.80-7.70); Neutrophils % (A) 76.2 %; Platelet Count 159 10*3/uL (140-440); RBC 3.96 10*6/uL (4.40-5.60); RDW 12.9 % (11.5-14.5); WBC 10.11 10*3/uL (4.50-10.00)
[2025-05-17 01:31] LABS: ALT 8 U/L (4-49); AST 21 U/L (17-59); African American GFR (CKD) >90 (>60 ml/min/1.73 sqM); Albumin 3.4 g/dL (3.5-5.0); Alkaline Phosphatase 98 U/L (38-126); Anion Gap 7 mmol/L; Blood Urea Nitrogen 30 mg/dL (9-20); Calcium 8.9 mg/dL (8.4-10.2); Carbon Dioxide 26 mmol/L (22-30); Chloride 103 mmol/L (98-107); Glucose 103 mg/dL (74-99); Lipase 58 U/L (23-300); Non-African American GFR(CKD) 81 (>60 ml/min/1.73 sqM); Potassium 4.2 mmol/L (3.5-5.1); Sodium 136 mmol/L (137-145); Total Protein 6.0 g/dL (6.3-8.2)
--- NOTE | 2025-05-17 02:41 | US ---
Exam: US GALLBLADDER EXAMINATION TYPE: US gallbladder DATE OF EXAM: 05/17/2025 COMPARISON: CT abdomen and pelvis from today CLINICAL INDICATION: Male, 74 years old with history of ruq pain; patient states ruq pain TECHNIQUE: Grayscale and color Doppler imaging of the right upper quadrant was performed. FINDINGS: EXAM MEASUREMENTS: Liver Length: 18.2 cm Gallbladder Wall: 0.2 cm CBD: measures 0.3 cm Right Kidney: 10.2 x 5.3 x 5.1 cm HEALTHCARE RISK CONTROL CONSULTANT NOTES:limited due to overlying gas and patient mobility Pancreas: Obscured by bowel gas Liver: intercostal views used. enlarged. Slightly Increased echogenicity. wnl as best visualized intercostally Gallbladder: 0.8 cm echogenic foci seen within the neck, unable to roll LLD Evidence for sonographic Bergman's sign: no CBD: if CBD, appears wnl Right Kidney: 6.7 x 5.0 x 6.0cm cyst in superior to the right kidney Impression: Large right renal cyst. Suspect 8 mm cholelithiasis
--- NOTE | 2025-05-17 02:43 | CT ---
EXAM: CT Abdomen and Pelvis With Intravenous Contrast CLINICAL HISTORY: Patient in by EMS from [facility] home, patient complaining of pain in right flank, right side ribs. No fall or injury reported. Patient has dementia, AOx3 at baseline with mild confusion, answering questions appropriately at time of assessment. No nausea/vomiting/diarrhea TECHNIQUE: Axial computed tomography images of the abdomen and pelvis with intravenous contrast. Coronal and sagittal reconstructions are performed. CTDI is 29.8 mGy and DLP is 1532 mGy-cm. This CT exam was performed using one or more of the following dose reduction techniques: automated exposure control, adjustment of the mA and/or kV according to patient size, and/or use of iterative reconstruction technique. 764 images COMPARISON: Abdominal ultrasound from today FINDINGS: Lung bases: Moderate amount of right lower lobe atelectasis and/or pneumonia and less likely aspiration. ABDOMEN: Liver: Unremarkable. No mass. Gallbladder and bile ducts: Small layer of sludge in the dependent portion of the gallbladder. Pancreas: Unremarkable. No mass. No ductal dilation. Spleen: Unremarkable. No splenomegaly. Adrenals: Unremarkable. No mass. Kidneys and ureters: Bilateral renal cysts. The larger 1 is on the right, measuring about 4.5 x 5.7 x 7.6 cm in posterior upper pole. Stomach and bowel: Unremarkable. No obstruction. No mucosal thickening. PELVIS: Appendix: No findings to suggest acute appendicitis. Bladder: Unremarkable. No mass. Reproductive: No acute findings. ABDOMEN and PELVIS: Intraperitoneal space: Unremarkable. No free air. No significant fluid collection. Bones/joints: Old right rib fractures. Osteopenia. Moderate degenerative changes. 6 mm anterolisthesis of L5 on S1. Total right hip replacement prostheses surrounded by heterotopic bone formation. Moderate upper lumbar scoliosis convex to the right. Soft tissues: Unremarkable. Vasculature: Small amount of atherosclerotic calcifications. No abdominal aortic aneurysm. Lymph nodes: Unremarkable. No enlarged lymph nodes. IMPRESSION: 1. Moderate amount of right lower lobe atelectasis and/or pneumonia and less likely aspiration. 2. larger upper pole right renal cyst.
--- NOTE | 2025-05-17 03:15 | ED ---
General Adult HPI - General Chief complaint: Abdominal Pain Stated complaint: R Flank Pain Time Seen by Provider: 05/16/25 23:50 Source: patient, EMS Mode of arrival: EMS Limitations: no limitations - History of Present Illness Initial comments: 74-year-old male with history of Parkinson's dementia who presents emergency department from adult foster care. He was reporting that he had right sided abdominal pain at his senior care. Upon arrival to the emergency department he states that this pain is gone. He reports that it was sharp in nature. Denies any associated chest pain but does have some shortness of breath with deep inspiration. He was not provided anything for the pain before being transferred here. He denies any changes in his bowel or bladder habits. No other alleviating, precipitating or modifying factors - Related Data Home Medications Medication Instructions Recorded Confirmed Carbidopa/Levodopa/Entacapone 1 tab PO TID@0800,1200,1600 08/23/20 09/03/22 [Carbidopa-Levodopa 200 mg-Enta] polyethylene glycoL 3350 [Miralax] 17 gm PO DAILY PRN 08/23/20 09/03/22 Carbidopa-Levodopa 25-100 mg 1 tab PO DAILY PRN 01/20/21 09/03/22 [Sinemet 25-100 mg] Sennosides [Senna] 16.2 mg PO DAILY PRN 01/20/21 09/03/22 Donepezil HCl [Aricept] 10 mg PO DAILY@1600 09/03/22 09/03/22 Tamsulosin HCl [Flomax] 0.4 mg PO DAILY@1600 09/03/22 09/03/22 amantadine HCL [Amantadine] 100 mg PO BID@0800,1600 09/03/22 09/03/22 Allergies Allergy/AdvReac Type Severity Reaction Status Date / Time bee pollen Allergy Unknown Verified 09/04/23 06:38 Penicillins AdvReac Diarrhea Verified 09/04/23 06:38 (C-Diff) Review of Systems ROS Statement: Those systems with pertinent positive or pertinent negative responses have been documented in the HPI. ROS Other: All systems not noted in ROS Statement are negative. Past Medical History Past Medical History: Musculoskeletal Disorder Additional Past Medical History / Comment(s): Parkinson's History of Any Multi-Drug Resistant Organisms: C-DIFF Date of last positivie culture/infection: 12/10/2016 MDRO Source:: "marginal" c-diff, pt states this is "all gone" Past Surgical History: Orthopedic Surgery Additional Past Surgical History / Comment(s): right knee sx, back sx, neck surgery Past Anesthesia/Blood Transfusion Reactions: No Reported Reaction Past Psychological History: No Psychological Hx Reported Smoking Status: Never smoker Past Alcohol Use History: Occasional Past Drug Use History: None Reported General Exam Limitations: no limitations General appearance: alert, in no apparent distress Head exam: Present: atraumatic, normocephalic, normal inspection Eye exam: Present: normal appearance, PERRL, EOMI. Absent: scleral icterus, conjunctival injection, periorbital swelling ENT exam: Present: normal exam, mucous membranes moist Neck exam: Present: normal inspection. Absent: tenderness, meningismus, lymphadenopathy Respiratory exam: Present: normal lung sounds bilaterally. Absent: respiratory distress, wheezes, rales, rhonchi, stridor Cardiovascular Exam: Present: regular rate, normal rhythm, normal heart sounds. Absent: systolic murmur, diastolic murmur, rubs, gallop, clicks GI/Abdominal exam: Present: soft, tenderness (Mild right upper quadrant pain), normal bowel sounds. Absent: distended, guarding, rebound, rigid Extremities exam: Present: normal inspection, full ROM, normal capillary refill. Absent: tenderness, pedal edema, joint swelling, calf tenderness Back exam: Present: normal inspection Neurological exam: Present: alert, oriented X3, CN II-XII intact Psychiatric exam: Present: normal affect, normal mood Skin exam: Present: warm, dry, intact, normal color. Absent: rash Course Vital Signs 05/16/25 05/17/25 05/17/25 23:49 02:50 03:31 Temperature 98.1 F Pulse Rate 70 77 78 Respiratory 18 18 18 Rate Blood Pressure 147/72 160/86 160/80 O2 Sat by Pulse 95 79 L 97 Oximetry Medical Decision Making - Medical Decision Making Was pt. sent in by a medical professional or institution (, PA, MANAGER SUSTAINABILITY, urgent care, hospital, or care home...) When possible be specific @ -Patient sent in from his nursing facility Did you speak to anyone other than the patient for history (EMS, parent, family, police, friend...)? What history was obtained from this source @ -Spoke with EMS and for history Did you review nursing and triage notes (agree or disagree)? Why? @ -I reviewed and agree with nursing and triage notes Were old charts reviewed (outside hosp., previous admission, EMS record, old EKG, old radiological studies, urgent care reports/EKG's, care home records)? Report findings @ -No old charts were reviewed Differential Diagnosis (chest pain, altered mental status, abdominal pain women, abdominal pain men, vaginal bleeding, weakness, fever, dyspnea, syncope, headache, dizziness, GI bleed, back pain, seizure, CVA, palpatations, mental health, musculoskeletal)? @ -Differential Abdominal Pain Men: Appendicitis, cholecystitis, diverticulosis, ischemic bowel, pancreatitis, hepatitis, UTI, gastroenteritis, AAA, incarcerated hernia, bowel obstruction, constipation, inflammatory bowel, hepatitis, peptic ulcer disease, splenic infarction, perforated viscus, testicular torsion, this is not meant to be an all-inclusive list EKG interpreted by me (3pts min.). @ -Not done X-rays interpreted by me (1pt min.). @ -None done CT interpreted by me (1pt min.). @ -yes which demonstrates gallstones U/S interpreted by me (1pt. min.). @ -yes which demonstrates gallstones What testing was considered but not performed or refused? (CT, X-rays, U/S, labs)? Why? @ -None What meds were considered but not given or refused? Why? @ -None Did you discuss the management of the patient with other professionals (professionals i.e. , PA, MANAGER SUSTAINABILITY, lab, RT, psych nurse, manager social services, control director, teacher, major gifts officer, rn case management)? Give summary @ -No Was smoking cessation discussed for >3mins.? @ -No Was critical care preformed (if so, how long)? @ -No Were there social determinants of health that impacted care today? How? (Homelessness, low income, unemployed, alcoholism, drug addiction, transportation, low edu. Level, literacy, decrease access to med. care, [facility], rehab)? @ -No Was there de-escalation of care discussed even if they declined (Discuss DNR or withdrawal of care, Hospice)? DNR status @ -No What co-morbidities impacted this encounter? (DM, HTN, Smoking, COPD, CAD, Cancer, CVA, ARF, Chemo, Hep., AIDS, mental health diagnosis, sleep apnea, morbid obesity)? @ -Dementia Was patient admitted / discharged? Hospital course, mention meds given and route, prescriptions, significant lab abnormalities, going to OR and other pertinent info. @ -Upon arrival patient seen and evaluated in bed 30. Thorough history and physical exam was performed. IV access was established. Laboratory studies were conducted. Ultrasound and CT performed which demonstrate gallstones. No signs of cholecystitis. Patient has no pain at this time. He will be discharged back to his facility. Instructed follow-up with the surgeon for evaluation of his gallstones and return for any new or worsening symptoms. Undiagnosed new problem with uncertain prognosis? @ -No Drug Therapy requiring intensive monitoring for toxicity (Heparin, Nitro, Insulin, Cardizem)? @ -No Were any procedures done? @ -No Diagnosis/symptom? @ -Acute epigastric abdominal pain, acute cholelithiasis Acute, or Chronic, or Acute on Chronic? @ -Acute Uncomplicated (without systemic symptoms) or Complicated (systemic symptoms)? @ -Uncomplicated Side effects of treatment? @ -No Exacerbation, Progression, or Severe Exacerbation? @ -No Poses a threat to life or bodily function? How? (Chest pain, USA, IA, pneumonia, PE, COPD, DKA, ARF, appy, cholecystitis, CVA, Diverticulitis, Homicidal, Suicidal, threat to staff... and all critical care pts) @ -No - Lab Data Result diagrams: 05/17/25 00:00 05/17/25 00:00 Lab Results 05/17/25 05/17/25 05/17/25 Range/Units 00:00 00:00 00:00 WBC 10.11 H (4.50-10.00) 10*3/uL RBC 3.96 L (4.40-5.60) 10*6/uL Hgb 12.6 L (13.0-17.0) g/dL Hct 36.8 L (39.6-50.0) % MCV 92.9 (80.0-97.0) fL MCH 31.8 (27.0-32.0) pg MCHC 34.2 (32.0-37.0) g/dL Plt Count 159 (140-440) 10*3/uL MPV 9.9 (9.5-12.2) fL Immature Gran % (Auto) 0.2 % Neutrophils % 76.2 % Lymphocytes % 11.6 % Monocytes % 10.6 % Eosinophils % 1.2 % Basophils % 0.2 % Immature Gran # 0.02 (0.00-0.04) 10*3/uL Neutrophils # 7.71 H (1.80-7.70) 10*3/uL Lymphocytes # 1.17 (0.90-5.00) 10*3/uL Monocytes # 1.07 H (0.20-1.00) 10*3/uL Eosinophils # 0.12 (0.04-0.35) 10*3/uL Basophils # 0.02 (0.00-0.10) 10*3/uL Sodium 136 L (137-145) mmol/L Potassium 4.2 (3.5-5.1) mmol/L Chloride 103 (98-107) mmol/L Carbon Dioxide 26 (22-30) mmol/L Anion Gap 7 mmol/L BUN 30 H (9-20) mg/dL Creatinine 0.93 (0.66-1.25) mg/dL Est GFR (CKD-EPI)AfAm >90 (>60 ml/min/1.73 sqM) Est GFR (CKD-EPI)NonAf 81 (>60 ml/min/1.73 sqM) Glucose 103 H (74-99) mg/dL Plasma Lactic Acid Morgan 0.8 (0.7-2.0) mmol/L Calcium 8.9 (8.4-10.2) mg/dL Total Bilirubin 1.0 (0.2-1.3) mg/dL AST 21 (17-59) U/L ALT 8 (4-49) U/L Alkaline Phosphatase 98 (38-126) U/L Troponin I (0.000-0.034) ng/mL Total Protein 6.0 L (6.3-8.2) g/dL Albumin 3.4 L (3.5-5.0) g/dL Lipase 58 (23-300) U/L Urine Color Urine Appearance (Clear) Urine pH (5.0-8.0) Ur Specific [place] (1.001-1.035) Urine Protein (Negative) Urine Glucose (UA) (Negative) Urine Ketones (Negative) Urine Blood (Negative) Urine Nitrite (Negative) Urine Bilirubin (Negative) Urine Urobilinogen (<2.0) mg/dL Ur Leukocyte Esterase (Negative) 05/17/25 05/17/25 Range/Units 00:00 02:50 WBC (4.50-10.00) 10*3/uL RBC (4.40-5.60) 10*6/uL Hgb (13.0-17.0) g/dL Hct (39.6-50.0) % MCV (80.0-97.0) fL MCH (27.0-32.0) pg MCHC (32.0-37.0) g/dL Plt Count (140-440) 10*3/uL MPV (9.5-12.2) fL Immature Gran % (Auto) % Neutrophils % % Lymphocytes % % Monocytes % % Eosinophils % % Basophils % % Immature Gran # (0.00-0.04) 10*3/uL Neutrophils # (1.80-7.70) 10*3/uL Lymphocytes # (0.90-5.00) 10*3/uL Monocytes # (0.20-1.00) 10*3/uL Eosinophils # (0.04-0.35) 10*3/uL Basophils # (0.00-0.10) 10*3/uL Sodium (137-145) mmol/L Potassium (3.5-5.1) mmol/L Chloride (98-107) mmol/L Carbon Dioxide (22-30) mmol/L Anion Gap mmol/L BUN (9-20) mg/dL Creatinine (0.66-1.25) mg/dL Est GFR (CKD-EPI)AfAm (>60 ml/min/1.73 sqM) Est GFR (CKD-EPI)NonAf (>60 ml/min/1.73 sqM) Glucose (74-99) mg/dL Plasma Lactic Acid Morgan (0.7-2.0) mmol/L Calcium (8.4-10.2) mg/dL Total Bilirubin (0.2-1.3) mg/dL AST (17-59) U/L ALT (4-49) U/L Alkaline Phosphatase (38-126) U/L Troponin I 0.013 (0.000-0.034) ng/mL Total Protein (6.3-8.2) g/dL Albumin (3.5-5.0) g/dL Lipase (23-300) U/L Urine Color Yellow Urine Appearance Clear (Clear) Urine pH 6.5 (5.0-8.0) Ur Specific [place] 1.050 H (1.001-1.035) Urine Protein Negative (Negative) Urine Glucose (UA) Negative (Negative) Urine Ketones Negative (Negative) Urine Blood Negative (Negative) Urine Nitrite Negative (Negative) Urine Bilirubin Negative (Negative) Urine Urobilinogen <2.0 (<2.0) mg/dL Ur Leukocyte Esterase Negative (Negative) Disposition Clinical Impression: RUQ pain, Gallstones Disposition: HOME SELF-CARE Condition: Stable Instructions (If sedation given, give patient instructions): Gallstones (ED) Additional Instructions: Your imaging showed that you have gallstones. If this pain is going to happen again, you may need to see a surgeon to have your gallbladder taken out. Please call and make an appointment with the surgeon I have recommended. Return for any new or worsening symptoms Is patient prescribed a controlled substance at d/c from ED?: No Referrals: Jazmine Michel MD [Primary Care Provider] - 1-2 days Heath Meredith MD [Medical Doctor] - 1-2 days Time of Disposition: 03:22
[2025-05-17 03:33] VITALS: BP 160/80; PULSE 78
[2025-05-17 03:42] LABS: Bilirubin,Urine Negative (Negative); Blood,Urine Negative (Negative); Color,Urine Yellow; Glucose,Urine (UA) Negative (Negative); Ketones,Urine Negative (Negative); Leukocyte Esterase,Urine Negative (Negative); Nitrite,Urine Negative (Negative); PH, Urine 6.5 (5.0-8.0); Protein,Urine Negative (Negative); Urobilinogen,Urine <2.0 mg/dL (<2.0)
[2025-05-17 03:48] LABS: Specific Gravity,Urine 1.050 (1.001-1.035)
== END 2025-05-17 03:49 | disposition home or self-care (01) ==
LOC: EC 23:40
DX: K80.20 Calculus of gallbladder without cholecystitis without obstruction (principal); F03.90 Unspecified dementia, unspecified severity, without behavioral disturbance, psychotic disturbance, mood disturbance, and anxiety; Z91.030 Bee allergy status; Z88.0 Allergy status to penicillin
CPT/HCPCS: 36415; 80053; 83605; 83690; 84484; 85025; 81003; 76705; 74177; 99285; Q9967